=== PATIENT | female | born 1990 | race Caucasian/White ===

== ENCOUNTER 2017-09-06 13:21 | Emergency (ER) | payer BC ==
[2017-09-06] MEDS ORDERED: Ondansetron 4 MG/2 ML SDV IVPUSH ONE (14:11)
[2017-09-06] MEDS ORDERED: Sodium Chloride 0.9% 1,000 ML IV ONE (14:12)
--- NOTE | 2017-09-06 14:17 | EDM.PDOC ---
ED HPI GENERAL MEDICAL PROBLEM - General Chief Complaint: Gastrointestinal Problem Stated Complaint: DIZZINES,NAUSEA,VOMITING Time Seen by Provider: 09/06/17 14:00 Source of Information: Reports: Patient History Limitations: Reports: No Limitations - History of Present Illness INITIAL COMMENTS - FREE TEXT/NARRATIVE: HISTORY AND PHYSICAL: History of present illness: [Comes to the emergency room complaining of dizziness, nausea, vomiting and diarrhea. Her symptoms began suddenly at 4 AM this morning and have continued throughout this morning. He was at her son's pediatric appointment when she began to feel dizzy and lightheaded and that she could faint so she presented to the ER for evaluation. She admits to approximately 20 episodes of vomiting, and 20 episodes of loose stools since 4 AM. No blood in her emesis or stools. States that she felt well last night, other than experiencing some mild nausea after [employer] class. No fever or chills. No recent illness or infection. She has otherwise been well. No muscle or joint aches or pains. Denies abdominal cramping. LMP was approximately 2-1/2 weeks ago. She denies .] Review of systems: As per history of present illness and below otherwise all systems reviewed and negative. Past medical history: As per history of present illness and as reviewed below otherwise noncontributory. Surgical history: As per history of present illness and as reviewed below otherwise noncontributory. Social history: No reported history of drug or alcohol abuse. Family history: As per history of present illness and as reviewed below otherwise noncontributory. Physical exam: HEENT: Atraumatic, normocephalic. Oral mucous membranes are mildly dry but are pink. Lungs: Clear to auscultation, breath sounds equal bilaterally. Heart: S1S2, regular rate and rhythm. Abdomen: Bowel sounds are normoactive throughout. Abdomen is soft and nondistended. She is nontender with palpation. No masses guarding or rebound. No CVA tenderness. Pelvis: Stable nontender. Genitourinary: Deferred. Rectal: Deferred. Extremities: Atraumatic. Neurovascular unremarkable. Neuro: Awake, alert, oriented. Motor and sensory unremarkable throughout. Exam nonfocal. Diagnostics: [UA] Therapeutics: [1 Liter normal saline, Zofran 4 mg IV] Impression: [Nausea and vomiting] Plan: [HCG is negative. Urinalysis appears unremarkable. Rx written for Zofran 4mg (# 10) si po q 8 hours prn nausea 0 RF's. Push fluids, plenty of rest. Return to ER as needed as discussed.] Definitive disposition and diagnosis as appropriate pending reevaluation and review of above. 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 Abdominal Pain Score (Numeric/FACES): 5 - Related Data Allergies Allergy/AdvReac Type Severity Reaction Status Date / Time fentanyl AdvReac Nausea Verified 11/17/15 06:18 Home Meds: Home Meds Calcium Carbonate [Tums Extra Strength] 1 tab CHEW ASDIRECTED PRN 06/15/16 [ History] Acetaminophen [Tylenol Extra Strength] 09/06/17 [History] Past Medical History HEENT History: Reports: None Cardiovascular History: Reports: None Respiratory History: Reports: None Gastrointestinal History: Reports: GERD, Other (See Below) Other Gastrointestinal History: heartburn with Genitourinary History: Reports: None 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 OB/BYN History: c section Musculoskeletal History: Reports: None Neurological History: Reports: None Psychiatric History: Reports: None Endocrine/Metabolic History: Reports: Obesity/BMI 30+ Hematologic History: Reports: None Immunologic History: Reports: None Oncologic (Cancer) History: Reports: None Dermatologic History: Reports: None - Infectious Disease History Infectious Disease History: Reports: None - Past Surgical History Female Surgical History: Reports: Section Social & Family History - Family History Family Medical History: Noncontributory - Tobacco Use Smoking Status *Q: Never Smoker Second Hand Smoke Exposure: No - Alcohol Use Days Per Week of Alcohol Use: 0 - Recreational Drug Use Recreational Drug Use: No Drug Use in Last 12 Months: No ED ROS GENERAL - Review of Systems Review Of Systems: ROS reveals no pertinent complaints other than HPI. ED EXAM, GI/ABD - Physical Exam Exam: See Below Course - Vital Signs Last Recorded V/S: Last Vital Signs Temp 98.4 F 09/06/17 15:39 Pulse 82 09/06/17 15:39 Resp 20 09/06/17 15:39 BP 109/71 09/06/17 15:39 Pulse Ox 97 09/06/17 15:39 - Orders/Labs/Meds Orders: Active Orders 24 hr Category Date Time Status UA W/MICROSCOPIC [URIN] Stat Lab 09/06/17 15:13 Received Labs: Laboratory Tests 09/06/17 Range/Units 15:13 Urine HCG, Qual NEGATIVE (NEGATIVE) Meds: Medications Discontinued Medications Generic Name Dose Route Start Last Admin Trade Name Adolfo PRN Reason Stop Dose Admin Sodium Chloride 1,000 mls @ 999 mls/hr 09/06/17 14:12 09/06/17 14:32 Normal Saline IV 09/06/17 15:12 999 mls/hr STAT ONE Administration Ondansetron HCl 4 mg 09/06/17 14:11 09/06/17 14:31 Zofran IVPUSH 09/06/17 14:12 4 mg ONETIME ONE Administration Departure - Departure Time of Disposition: 15:40 Disposition: Home, Self-Care 01 Condition: Good Clinical Impression: Nausea and vomiting - Discharge Information Referrals: PCP,None [Primary Care Provider] - Forms: ED Department Discharge Additional Instructions: The following information is given to patients seen in the emergency department who are being discharged to home. This information is to outline your options for follow-up care. We provide all patients seen in our emergency department with a follow-up referral. The need for follow-up, as well as the timing and circumstances, are variable depending upon the specifics of your emergency department visit. If you don't have a primary care physician on staff, we will provide you with a referral. We always advise you to contact your personal physician following an emergency department visit to inform them of the circumstance of the visit and for follow-up with them and/or the need for any referrals to a consulting specialist. The emergency department will also refer you to a specialist when appropriate. This referral assures that you have the opportunity for follow-up care with a specialist. All of these measure are taken in an effort to provide you with optimal care, which includes your follow-up. Under all circumstances we always encourage you to contact your private physician who remains a resource for coordinating your care. When calling for follow-up care, please make the office aware that this follow-up is from your recent emergency room visit. If for any reason you are refused follow-up, please contact the [facility] emergency department at and asked to speak to the emergency department charge nurse. [facility] [address] [place], [place] [id number] Follow-up with your primary care provider or at the clinic listed above in the next 48-72 hours. Push fluids, get plenty of rest. Fill Zofran prescription and take one every 8 hours as needed for nausea. Return to ER as needed as discussed. - My Orders Last 24 Hours: My Active Orders 09/06/17 15:13 UA W/MICROSCOPIC [URIN] Stat - Assessment/Plan Last 24 Hours: My Active Orders 09/06/17 15:13 UA W/MICROSCOPIC [URIN] Stat
[2017-09-06 15:40] VITALS: BP 109/71
== END 2017-09-06 16:00 | disposition home or self-care (01) ==
LOC: MW.ED 13:21
DX: R11.2 Nausea with vomiting, unspecified (principal); Z88.8 Allergy status to other drugs, medicaments and biological substances
CPT/HCPCS: 81001; 81025; 96361; 96374; 99284; J2405; J7040; 99283

== ENCOUNTER 2020-02-10 19:58 | Emergency (ER) | payer BC ==
[2020-02-10] MEDS ORDERED: fentaNYL 50 MCG/ML SDV IVPUSH ONE (20:32)
[2020-02-10] MEDS ORDERED: Sodium Chloride 0.9% 2.5 ML Syringe FLUSH PRN ×2 (20:32→21:45)
[2020-02-10] MEDS ORDERED: Sodium Chloride 0.9% 10 ML Syringe FLUSH PRN ×2 (20:32→21:45)
--- NOTE | 2020-02-10 20:37 | EDM.PDOC ---
ED HPI GENERAL MEDICAL PROBLEM - General Chief Complaint: [employer] Problem Stated Complaint: POSSIBLE INFECTION Time Seen by Provider: 02/10/20 19:59 Source of Information: Reports: Patient, Old Records History Limitations: Reports: No Limitations - History of Present Illness INITIAL COMMENTS - FREE TEXT/NARRATIVE: 29-year-old female with a past medical history of multiple C-sections, post-op day #5 status post bilateral salpingectomy and uterine ablation for heavy menstrual bleeding (performed at [facility]), status post appendectomy. She presents emergency department today complaining of a 2-day history of severe infraumbilical pain, subjective fever, chills, diaphoresis, and 2 days of intermittent near syncope. She called her [employer]'s office who directed her to come to the emergency department. Took ibuprofen and Vicodin prior to arrival without much relief. She denies any objective fever, cough, shortness of breath, headache, neck pain, cough, dysuria, urinary frequency, hematuria, vomiting, diarrhea, vaginal bleeding or discharge, or rash. lower abdomen, below umbilicus Pain Score (Numeric/FACES): 6 - Related Data Allergies Allergy/AdvReac Type Severity Reaction Status Date / Time fentanyl AdvReac Nausea Verified 02/10/20 20:09 Home Meds: Home Meds Acetaminophen [Tylenol Extra Strength] 800 mg PO Q6H PRN 09/06/17 [History] Hydrocodone/Acetaminophen [Hydrocodone-Acetamin 5-325 mg] 1 - 2 tab PO Q6H PRN 02/10/20 [History] Past Medical History HEENT History: Reports: None Cardiovascular History: Reports: None Respiratory History: Reports: None Gastrointestinal History: Reports: GERD, Other (See Below) Other Gastrointestinal History: heartburn with Genitourinary History: Reports: None [employer] History: Reports: Other [employer] History: c section Musculoskeletal History: Reports: None Neurological History: Reports: None Psychiatric History: Reports: None Endocrine/Metabolic History: Reports: Obesity/BMI 30+ Hematologic History: Reports: None Immunologic History: Reports: None Oncologic (Cancer) History: Reports: None Dermatologic History: Reports: None - Infectious Disease History Infectious Disease History: Reports: None - Past Surgical History Head Surgeries/Procedures: Reports: None GI Surgical History: Reports: Appendectomy Female Surgical History: Reports: Section, D&C, Other (See Below) Other Female Surgeries/Procedures: Saplingoectomy, Ablation Social & Family History - Family History Family Medical History: Noncontributory - Tobacco Use Smoking Status *Q: Never Smoker - Recreational Drug Use Recreational Drug Use: No ED ROS GENERAL - Review of Systems Review Of Systems: See Below ED EXAM, GI/ABD - Physical Exam Exam: See Below Text/Narrative:: Vital signs reviewed. Nursing notes reviewed. Constitutional: Awake, alert, non-distressed. Head: Normocephalic, atraumatic. Eyes: EOMI, conjunctiva normal, no discharge, no scleral icterus. Ears, Nose, Throat: External ears and nose normal, moist oral mucosa. Cardiovascular: 2+ radial pulse, capillary refill less than 2 seconds. Pulmonary: normal work of breathing, no accessory muscle use. Abdomen/GI: Soft, moderate infraumbilical and right lower quadrant tenderness, nondistended, no guarding or rigidity, no masses. Surgical incision sites appear clean and healing normally. Ecchymosis noted to the abdominal wall. Musculoskeletal: No deformities. Integumentary: Appropriate color for ethnicity, warm, dry, no pallor or jaundice, no rash. Neurologic: Alert, answering questions appropriately, normal speech, no facial droop, moving all extremities well. Psychiatric: Appropriate mood and affect, normal thought process. Course - Vital Signs Text/Narrative:: Patient hemodynamically stable, afebrile, well-appearing, looks nontoxic. Differential diagnosis includes but is not limited to: Intra-abdominal hemorrhage, postoperative infection, bowel perforation, sepsis, diverticulitis, endometritis, TOA, gastritis, pancreatitis, GERD, bowel obstruction, intussusception, ileus, etc. Initially tachycardic but afebrile, nontoxic-appearing. Heart rate improved from 118 to 86 without any antipyretics or fluids, this was after receiving analgesic pain medications. CBC shows a leukocytosis of 16.21. Lactate is normal. Chemistry panel shows mild renal insufficiency. Troponin is negative. LFTs are normal. Lipase normal. Urinalysis shows positive nitrites and moderate leukocyte esterase with 3+ bacteria. Patient denies any flank pain, dysuria, or urinary frequency. A urine culture was added on. CT imaging of the abdomen/pelvis demonstrated an infraumbilical gas and fluid collection in the subcutaneous fat with infiltrate is shown of the subcutaneous fat and skin thickening, concern for postoperative hematoma with a possible superimposed infection. There is also small amount of gas in the uterine cavity but I have a low suspicion for endometritis given the patient has no lower pelvic pain or vaginal discharge or bleeding. Her pain is very much in the infraumbilical region in the area of her umbilical incision and not pelvic in location. 2220: I spoke with Dr. June Fonseca who is on-call for [facility]. She states that since the patient is nontoxic and the rest of her work-up is reassuring, the patient could discharge home with a prescription for oral cephalexin and they will plan to see her tomorrow morning in the [facility] clinic. She did not recommend IV antibiotics or hospitalization at this point given lack of fever, normal heart rate, and reassuring appearance. She states that she will facilitate a next day appointment in their clinic for reevaluation in the next 10 to 12 hours. I have a fairly low suspicion for bacterial sepsis at this point given normalization of vital signs after fentanyl. We did obtain 2 sets of blood cultures. Patient does not appear to have any signs of severe sepsis. I did consider broad-spectrum antibiotics but after discussing this with Dr. Fonseca we decided to abstain and will decide to prescribe oral cephalexin and facilitate close clinic follow-up tomorrow morning. Cephalexin would also treat a UTI based on her urinalysis. Blood and urine cultures were obtained. Plan: Patient is stable to discharge home with outpatient [employer] follow-up. She has oral pain medications at home and I instructed her to continue these as directed and as needed. Oral Keflex was prescribed to the dispensing machine. Strict emergency department return precautions were provided, patient indicated understanding. All questions were answered prior to departure. Discharged in good condition. Last Recorded V/S: Last Vital Signs Temp 36.2 C 02/10/20 20:05 Pulse 86 02/10/20 21:48 Resp 16 02/10/20 21:48 BP 120/58 L 02/10/20 21:48 Pulse Ox 96 02/10/20 21:48 - Orders/Labs/Meds Orders: Active Orders 24 hr Category Date Time Status Cardiac Monitoring [RC] . DIRECTED Care 02/10/20 20:32 Active Pulse Oximetry [RC] ASDIRECTED Care 02/10/20 20:32 Active NPO Now [Nothing per Oral Now Diet] [DIET] Diet 02/10/20 Dinner Active CULTURE BLOOD [BC] Stat Lab 02/10/20 21:57 Received CULTURE BLOOD [BC] Stat Lab 02/10/20 22:26 Received CULTURE URINE [RM] Stat Lab 02/10/20 20:35 Received Sodium Chloride 0.9% [Saline Flush] Med 02/10/20 20:32 Active 10 ml FLUSH ASDIRECTED PRN Sodium Chloride 0.9% [Saline Flush] Med 02/10/20 21:45 Active 10 ml FLUSH ASDIRECTED PRN Sodium Chloride 0.9% [Saline Flush] Med 02/10/20 20:32 Active 2.5 ml FLUSH ASDIRECTED PRN Sodium Chloride 0.9% [Saline Flush] Med 02/10/20 21:45 Active 2.5 ml FLUSH ASDIRECTED PRN Blood Culture x2 Reflex Set [OM.PC] Stat Oth 02/10/20 21:45 Ordered Saline Lock Insert [OM.PC] Stat Oth 02/10/20 20:32 Ordered Saline Lock Insert [OM.PC] Stat Oth 02/10/20 21:45 Ordered Medication Orders Sodium Chloride (Saline Flush) 10 ml FLUSH ASDIRECTED PRN PRN Reason: Keep Vein Open Sodium Chloride (Saline Flush) 2.5 ml FLUSH ASDIRECTED PRN PRN Reason: Keep Vein Open Sodium Chloride (Saline Flush) 10 ml FLUSH ASDIRECTED PRN PRN Reason: Keep Vein Open Sodium Chloride (Saline Flush) 2.5 ml FLUSH ASDIRECTED PRN PRN Reason: Keep Vein Open Labs: Laboratory Tests 02/10/20 02/10/20 02/10/20 Range/Units 20:25 20:25 20:35 WBC 16.21 H (4.0-11.0) K/uL RBC 4.64 (4.30-5.90) M/uL Hgb 12.5 (12.0-16.0) g/dL Hct 38.4 (36.0-46.0) % MCV 82.8 (80.0-98.0) fL MCH 26.9 L (27.0-32.0) pg MCHC 32.6 (31.0-37.0) g/dL RDW Std Deviation 45.2 (28.0-62.0) fl RDW Coeff of Kalie 15 (11.0-15.0) % Plt Count 290 (150-400) K/uL MPV 11.30 (7.40-12.00) fL Neut % (Auto) 80.0 (48.0-80.0) % Lymph % (Auto) 10.1 L (16.0-40.0) % [place] % (Auto) 8.8 (0.0-15.0) % Eos % (Auto) 0.9 (0.0-7.0) % Baso % (Auto) 0.2 (0.0-1.5) % Neut # (Auto) 13.0 H (1.4-5.7) K/uL Lymph # (Auto) 1.6 (0.6-2.4) K/uL [place] # (Auto) 1.4 H (0.0-0.8) K/uL Eos # (Auto) 0.1 (0.0-0.7) K/uL Baso # (Auto) 0.0 (0.0-0.1) K/uL Nucleated RBC % 0.0 /100WBC Nucleated RBCs # 0 K/uL Lactate (0.20-2.00) mmol/L Sodium 134 L (136-145) mmol/L Potassium 3.6 (3.5-5.1) mmol/L Chloride 101 (98-107) mmol/L Carbon Dioxide 25.0 (21.0-32.0) mmol/L BUN 10 (7.0-18.0) mg/dL Creatinine 1.2 H (0.6-1.0) mg/dL Est Cr Clr Drug Dosing 71.04 mL/min Estimated GFR (MDRD) 53.9 ml/min Glucose 109 H (74-106) mg/dL Calcium 8.5 (8.5-10.1) mg/dL Total Bilirubin 0.6 (0.2-1.0) mg/dL AST 18 (15-37) IU/L ALT 17 (14-63) IU/L Alkaline Phosphatase 78 (46-116) U/L Troponin I < 0.050 (0.000-0.056) ng/mL Total Protein 8.5 H (6.4-8.2) g/dL Albumin 3.6 (3.4-5.0) g/dL Globulin 4.9 H (2.6-4.0) g/dL Albumin/Globulin Ratio 0.7 L (0.9-1.6) Lipase 58 L (73-393) U/L Urine Color YELLOW Urine Appearance CLOUDY Urine pH 6.5 (5.0-8.0) Ur Specific [place] 1.020 (1.001-1.035) Urine Protein 30 H (NEGATIVE) mg/dL Urine Glucose (UA) NEGATIVE (NEGATIVE) mg/dL Urine Ketones NEGATIVE (NEGATIVE) mg/dL Urine Occult Blood SMALL H (NEGATIVE) Urine Nitrite POSITIVE H (NEGATIVE) Urine Bilirubin NEGATIVE (NEGATIVE) Urine Urobilinogen 0.2 (<2.0) EU/dL Ur Leukocyte Esterase MODERATE H (NEGATIVE) Urine RBC 1-2 (0-2/HPF) Urine WBC 25-30 (0-5/HPF) Ur Epithelial Cells OCCASIONAL (NONE-FEW) Urine Bacteria 3+ H (NEGATIVE) Urine HCG, Qual (NEGATIVE) 02/10/20 02/10/20 Range/Units 20:35 22:05 WBC (4.0-11.0) K/uL RBC (4.30-5.90) M/uL Hgb (12.0-16.0) g/dL Hct (36.0-46.0) % MCV (80.0-98.0) fL MCH (27.0-32.0) pg MCHC (31.0-37.0) g/dL RDW Std Deviation (28.0-62.0) fl RDW Coeff of Kalie (11.0-15.0) % Plt Count (150-400) K/uL MPV (7.40-12.00) fL Neut % (Auto) (48.0-80.0) % Lymph % (Auto) (16.0-40.0) % [place] % (Auto) (0.0-15.0) % Eos % (Auto) (0.0-7.0) % Baso % (Auto) (0.0-1.5) % Neut # (Auto) (1.4-5.7) K/uL Lymph # (Auto) (0.6-2.4) K/uL [place] # (Auto) (0.0-0.8) K/uL Eos # (Auto) (0.0-0.7) K/uL Baso # (Auto) (0.0-0.1) K/uL Nucleated RBC % /100WBC Nucleated RBCs # K/uL Lactate 0.8 (0.20-2.00) mmol/L Sodium (136-145) mmol/L Potassium (3.5-5.1) mmol/L Chloride (98-107) mmol/L Carbon Dioxide (21.0-32.0) mmol/L BUN (7.0-18.0) mg/dL Creatinine (0.6-1.0) mg/dL Est Cr Clr Drug Dosing mL/min Estimated GFR (MDRD) ml/min Glucose (74-106) mg/dL Calcium (8.5-10.1) mg/dL Total Bilirubin (0.2-1.0) mg/dL AST (15-37) IU/L ALT (14-63) IU/L Alkaline Phosphatase (46-116) U/L Troponin I (0.000-0.056) ng/mL Total Protein (6.4-8.2) g/dL Albumin (3.4-5.0) g/dL Globulin (2.6-4.0) g/dL Albumin/Globulin Ratio (0.9-1.6) Lipase (73-393) U/L Urine Color Urine Appearance Urine pH (5.0-8.0) Ur Specific [place] (1.001-1.035) Urine Protein (NEGATIVE) mg/dL Urine Glucose (UA) (NEGATIVE) mg/dL Urine Ketones (NEGATIVE) mg/dL Urine Occult Blood (NEGATIVE) Urine Nitrite (NEGATIVE) Urine Bilirubin (NEGATIVE) Urine Urobilinogen (<2.0) EU/dL Ur Leukocyte Esterase (NEGATIVE) Urine RBC (0-2/HPF) Urine WBC (0-5/HPF) Ur Epithelial Cells (NONE-FEW) Urine Bacteria (NEGATIVE) Urine HCG, Qual NEGATIVE (NEGATIVE) Meds: Medications Generic Name Dose Route Start Last Admin Trade Name Freq PRN Reason Stop Dose Admin Sodium Chloride 10 ml 02/10/20 20:32 Saline Flush FLUSH ASDIRECTED PRN Keep Vein Open Sodium Chloride 2.5 ml 02/10/20 20:32 Saline Flush FLUSH ASDIRECTED PRN Keep Vein Open Sodium Chloride 10 ml 02/10/20 21:45 Saline Flush FLUSH ASDIRECTED PRN Keep Vein Open Sodium Chloride 2.5 ml 02/10/20 21:45 Saline Flush FLUSH ASDIRECTED PRN Keep Vein Open Discontinued Medications Generic Name Dose Route Start Last Admin Trade Name Adolfo PRN Reason Stop Dose Admin Fentanyl 50 mcg 02/10/20 20:32 02/10/20 20:40 Fentanyl IVPUSH 02/10/20 20:33 50 mcg ONETIME ONE Administration Piperacillin Sod/Tazobactam 100 mls @ 200 mls/hr 02/10/20 22:11 Sod 4.5 gm/ Sodium Chloride IV 02/10/20 22:40 STAT ONE Iopamidol 100 ml 02/10/20 21:39 02/10/20 21:40 Isovue Multipack-370 (76%) IVPUSH 02/10/20 21:40 100 ml ONETIME STA Administration Vancomycin HCl 1 dose 02/10/20 22:12 Pharmacy To Dose - Vancomycin .XX 02/10/20 22:13 ONETIME ONE Departure - Departure Time of Disposition: 22:34 Disposition: Home, Self-Care 01 Condition: Good Clinical Impression: Abdominal wall cellulitis - Discharge Information *PRESCRIPTION DRUG MONITORING PROGRAM REVIEWED*: Not Applicable *COPY OF PRESCRIPTION DRUG MONITORING REPORT IN PATIENT AARON: Not Applicable Instructions: Cellulitis, Adult Referrals: [facility] [Provider Group] - 1 Day (Call in the morning as soon as the clinic opens to establish a same-day appointment for close reevaluation.) Forms: ED Department Discharge Additional Instructions: Thank you for choosing the [facility] emergency department in [place] for your medical needs today. It was a pleasure caring for you. You were seen in the emergency department for abdominal pain. Your CT scan was concerning for cellulitis, and infection of the skin of the abdominal wall around your umbilical incision. Your vital signs look reassuring as does your laboratory work-up. Your urinalysis was concerning for urinary tract infection. I did speak with Dr. Fonseca who is on-call for [facility] [employer] and they would like for you to be seen tomorrow morning in their clinic. Please call as soon as the clinic opens to set up a same-day appointment. In the meantime you can take your prescribed medications as directed by your [employer] doctor. I will prescribe a course of cephalexin, an oral antibiotic for the abdominal wall infection. Be sure to finish the entire bottle. Warning signs include worsening pain, redness, persistent fever, chills, or repeated vomiting. Please return the emergency department immediately if your symptoms worsen or if you feel worse. The following information is given to patients seen in the emergency department who are being discharged. This information is to outline your options for follow-up care. We provide all patients seen in our emergency department with a follow-up referral. The need for follow-up, as well as the timing and circumstances, are variable depending upon the specifics of your emergency department visit. If you don't have a primary care physician on staff, we will provide you with a referral. We always advise you to contact your personal physician following an emergency department visit to inform them of the circumstance of the visit and for follow-up with them and/or the need for any referrals to a consulting specialist. The emergency department will also refer you to a specialist when appropriate. This referral assures that you have the opportunity for follow-up care with a specialist. All of these measure are taken in an effort to provide you with optimal care, which includes your follow-up. Under all circumstances we always encourage you to contact your private physician who remains a resource for coordinating your care. When calling for follow-up care, please make the office aware that this follow-up is from your recent emergency room visit. If for any reason you are refused follow-up, please contact the [facility] Emergency Department at and asked to speak to the emergency department charge nurse. If you do not have a primary care physician that is caring for you, you can contact these clinics below to set up an appointment to establish care: [facility] - Primary Care [address] [place] [id number] [address] Sepsis Event Note (ED) - Evaluation Sepsis Screening Result: Possible Sepsis Risk - Focused Exam Vital Signs: Vital Signs Temp Pulse Resp BP Pulse Ox 02/10/20 21:48 86 16 120/58 L 96 02/10/20 21:15 93 112/69 97 02/10/20 20:05 36.2 C 118 H 16 123/77 96 - My Orders Last 24 Hours: My Active Orders 02/10/20 Dinner NPO Now [Nothing per Oral Now Diet] [DIET] 02/10/20 20:32 Cardiac Monitoring [RC] . DIRECTED Pulse Oximetry [RC] ASDIRECTED Sodium Chloride 0.9% [Saline Flush] 10 ml FLUSH ASDIRECTED PRN Sodium Chloride 0.9% [Saline Flush] 2.5 ml FLUSH ASDIRECTED PRN Saline Lock Insert [OM.PC] Stat 02/10/20 20:35 CULTURE URINE [RM] Stat 02/10/20 21:45 Sodium Chloride 0.9% [Saline Flush] 10 ml FLUSH ASDIRECTED PRN Sodium Chloride 0.9% [Saline Flush] 2.5 ml FLUSH ASDIRECTED PRN Blood Culture x2 Reflex Set [OM.PC] Stat Saline Lock Insert [OM.PC] Stat 02/10/20 21:57 CULTURE BLOOD [BC] Stat 02/10/20 22:26 CULTURE BLOOD [BC] Stat - Assessment/Plan Last 24 Hours: My Active Orders 02/10/20 Dinner NPO Now [Nothing per Oral Now Diet] [DIET] 02/10/20 20:32 Cardiac Monitoring [RC] . DIRECTED Pulse Oximetry [RC] ASDIRECTED Sodium Chloride 0.9% [Saline Flush] 10 ml FLUSH ASDIRECTED PRN Sodium Chloride 0.9% [Saline Flush] 2.5 ml FLUSH ASDIRECTED PRN Saline Lock Insert [OM.PC] Stat 02/10/20 20:35 CULTURE URINE [RM] Stat 02/10/20 21:45 Sodium Chloride 0.9% [Saline Flush] 10 ml FLUSH ASDIRECTED PRN Sodium Chloride 0.9% [Saline Flush] 2.5 ml FLUSH ASDIRECTED PRN Blood Culture x2 Reflex Set [OM.PC] Stat Saline Lock Insert [OM.PC] Stat 02/10/20 21:57 CULTURE BLOOD [BC] Stat 02/10/20 22:26 CULTURE BLOOD [BC] Stat
[2020-02-10 21:04] LABS: BLOOD UREA NITROGEN,BUN 10 mg/dL (7.0-18.0); CHLORIDE,CL 101 mmol/L (98-107); GLUCOSE RANDOM 109 mg/dL (74-106); LIPASE 58 U/L (73-393); POTASSIUM,K 3.6 mmol/L (3.5-5.1); SODIUM,NA 134 mmol/L (136-145)
[2020-02-10] MEDS ORDERED: Iopamidol 755 MG/ML 500 ML Multipack Bottle IVPUSH STA (21:39)
[2020-02-10] MEDS ORDERED: Piperacillin/Tazobactam 4.5 GM in Sodium Chloride 0.9% 100 ML IV ONE (22:11)
--- NOTE | 2020-02-10 22:14 | CT ---
INDICATION: Severe periumbilical abdominal pain, recent salpingectomy TECHNIQUE: CT Abdomen and pelvis with i.v. contrast. Coronal and sagittal reformats were obtained. CONTRAST: 100 mL Isovue 370 COMPARISON: None FINDINGS: Lower chest: Unremarkable. Liver: Unremarkable. Spleen: Unremarkable. Pancreas: Unremarkable. Gallbladder: Unremarkable. Kidney: There is a nonobstructing 2 mm stone present in the upper pole of the right kidney. Adrenal: Unremarkable. Bowel: Unremarkable. Patient status post appendectomy. Vascular: Unremarkable. Lymph: Unremarkable. Peritoneum: Unremarkable. A small amount of pneumoperitoneum, extraperitoneal gas within the space of Retzius and gas along the right anterior abdominal wall are present and almost certainly related to recent surgery. Trace amount of pelvic ascites is present. Pelvis: There is a cyst or follicle within the left ovary measuring 2 cm. A small amount of gas is present within the uterine cavity with surrounding hypodense fluid. Soft tissue: There is an infraumbilical gas and fluid collection in the subcutaneous fat measuring 5.7 x 5.3 cm. Infiltration of the surrounding subcutaneous fat and skin thickening seen. Bone: Unremarkable for age. IMPRESSIONS: 1. There is an infraumbilical gas and fluid collection in the subcutaneous fat measuring 5.7 x 5.3 cm. Infiltration of the surrounding subcutaneous fat and skin thickening seen. This is most likely due to postoperative hematoma but clinical correlation is recommended to exclude a superimposed infection. 2. A small amount of gas is present within the uterine cavity with surrounding hypodense fluid. This may be related to recent surgery and correlation with physical exam is recommended to exclude the less likely possibility of endometritis. Dictated by Howard Kim MD @ 02/10/2020 10:08:11 PM Please note that all CT scans at this facility use dose modulation, iterative reconstruction, and/or weight-based dosing when appropriate to reduce radiation dose to as low as reasonably achievable. Dictated by: Howard Kim MD @ 02/10/2020 22:11:36 (Electronically Signed)
[2020-02-10 22:39] VITALS: BP 117/65; PULSE 87
== END 2020-02-10 22:45 | disposition home or self-care (01) ==
LOC: MW.ED 19:58
DX: L03.311 Cellulitis of abdominal wall (principal); E66.9 Obesity, unspecified; Z68.37 Body mass index [BMI] 37.0-37.9, adult; Z88.4 Allergy status to anesthetic agent
CPT/HCPCS: 36415; 74177; 80053; 81001; 81025; 83605; 83690; 84484; 85025; 87040; 87086; 87088; 87186; 96374; 99284; J3010; Q9967

== ENCOUNTER 2020-02-12 16:29 | Day surgery (SDC) | payer BC ==
[2020-02-12] MEDS ORDERED: Lidocaine 2% 5 ML SDV ONE (16:43)
[2020-02-12] MEDS ORDERED: Propofol 200 MG/20 ML SDV ONE (16:43)
[2020-02-12] MEDS ORDERED: Midazolam 1 MG/ML 2 ML SDV ONE (16:43)
[2020-02-12] MEDS ORDERED: fentaNYL 100 MCG/2 ML SDV ONE (16:43)
[2020-02-12] MEDS ORDERED: Levofloxacin/Dextrose 5%-Water 500 MG in Premix Bag 1 BAG IV ONE (16:52)
[2020-02-12] MEDS ORDERED: Bupivacaine 0.25%/EPINEPHrine 1:200,000 10 ML SDV ONE (16:53)
[2020-02-12] MEDS ORDERED: Lactated Ringers 1,000 ML IV ONE (17:24)
[2020-02-12 17:41] LABS: BLOOD UREA NITROGEN,BUN 7 mg/dL (7.0-18.0); CARBON DIOXIDE,CO2 22.5 mmol/L (21.0-32.0); CHLORIDE,CL 100 mmol/L (98-107); GLUCOSE RANDOM 111 mg/dL (74-106); POTASSIUM,K 3.5 mmol/L (3.5-5.1); SODIUM,NA 133 mmol/L (136-145)
[2020-02-12] MEDS ORDERED: fentaNYL 50 MCG/ML SDV IVPUSH ONE (17:52)
--- NOTE | 2020-02-12 18:04 | PCM.PREANE ---
Preanesthetic Assessment - Anesthesia/Transfusion/Family Hx Anesthesia History: Prior Anesthesia Without Reaction Other Type of Anesthesia Reaction Comment: Difficuly in placement of an Epidural for L&D Family History of Anesthesia Reaction: No Transfusion History: No Prior Transfusion(s) - Review of Systems General: No Symptoms Pulmonary: No Symptoms Cardiovascular: No Symptoms Gastrointestinal: No Symptoms Neurological: No Symptoms Other: Reports: None - Physical Assessment NPO Status Date: 02/12/20 NPO Status Time: 15:00 (gatorade) Height: 5 ft 8 in Weight: 112.808 kg ASA Class: 2 Mental Status: Alert & Oriented x3 Airway Class: Mallampati = 2 Dentition: Reports: Normal Dentition Thyro-Mental Finger Breadths: 3 ROM/Head Extension: Full Lungs: Clear to Auscultation, Normal Respiratory Effort Cardiovascular: Regular Rate, Regular Rhythm - Lab Values: Laboratory Last Values WBC 17.02 K/uL (4.0-11.0) H 02/12/20 17:09 RBC 4.49 M/uL (4.30-5.90) 02/12/20 17:09 Hgb 12.1 g/dL (12.0-16.0) 02/12/20 17:09 Hct 37.2 % (36.0-46.0) 02/12/20 17:09 MCV 82.9 fL (80.0-98.0) 02/12/20 17:09 MCH 26.9 pg (27.0-32.0) L 02/12/20 17:09 MCHC 32.5 g/dL (31.0-37.0) 02/12/20 17:09 RDW Std Deviation 45.0 fl (28.0-62.0) 02/12/20 17:09 RDW Coeff of Kalie 15 % (11.0-15.0) 02/12/20 17:09 Plt Count 286 K/uL (150-400) 02/12/20 17:09 MPV 11.10 fL (7.40-12.00) 02/12/20 17:09 Neut % (Auto) 84.4 % (48.0-80.0) H 02/12/20 17:09 Lymph % (Auto) 5.1 % (16.0-40.0) L 02/12/20 17:09 Mineral % (Auto) 10.0 % (0.0-15.0) 02/12/20 17:09 Eos % (Auto) 0.4 % (0.0-7.0) 02/12/20 17:09 Baso % (Auto) 0.1 % (0.0-1.5) 02/12/20 17:09 Neut # (Auto) 14.4 K/uL (1.4-5.7) H 02/12/20 17:09 Lymph # (Auto) 0.9 K/uL (0.6-2.4) 02/12/20 17:09 Mineral # (Auto) 1.7 K/uL (0.0-0.8) H 02/12/20 17:09 Eos # (Auto) 0.1 K/uL (0.0-0.7) 02/12/20 17:09 Baso # (Auto) 0.0 K/uL (0.0-0.1) 02/12/20 17:09 Nucleated RBC % 0.0 /100WBC 02/12/20 17:09 Nucleated RBCs # 0 K/uL 02/12/20 17:09 Sodium 133 mmol/L (136-145) L 02/12/20 17:09 Potassium 3.5 mmol/L (3.5-5.1) 02/12/20 17:09 Chloride 100 mmol/L (98-107) 02/12/20 17:09 Carbon Dioxide 22.5 mmol/L (21.0-32.0) 02/12/20 17:09 BUN 7 mg/dL (7.0-18.0) 02/12/20 17:09 Creatinine 1.2 mg/dL (0.6-1.0) H 02/12/20 17:09 Est Cr Clr Drug Dosing TNP 02/12/20 17:09 Estimated GFR (MDRD) 53.9 ml/min 02/12/20 17:09 Glucose 111 mg/dL (74-106) H 02/12/20 17:09 Calcium 8.7 mg/dL (8.5-10.1) 02/12/20 17:09 - Allergies Allergies/Adverse Reactions: Allergies Allergy/AdvReac Type Severity Reaction Status Date / Time fentanyl AdvReac Nausea Verified 02/10/20 20:09 - Acknowledgements Anesthesia Type Planned: General Anesthesia Pt an Appropriate Candidate for the Planned Anesthesia: Yes Alternatives and Risks of Anesthesia Discussed w Pt/Guardian: Yes Pt/Guardian Understands and Agrees with Anesthesia Plan: Yes PreAnesthesia Questionnaire HEENT History: Reports: None Cardiovascular History: Reports: None Respiratory History: Reports: None Gastrointestinal History: Reports: GERD, Other (See Below) Other Gastrointestinal History: heartburn with Genitourinary History: Reports: None 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: Other OB/BYN History: c section Musculoskeletal History: Reports: None Neurological History: Reports: None Psychiatric History: Reports: None Endocrine/Metabolic History: Reports: Obesity/BMI 30+ Hematologic History: Reports: None Immunologic History: Reports: None Oncologic (Cancer) History: Reports: None Dermatologic History: Reports: None - Infectious Disease History Infectious Disease History: Reports: None - Past Surgical History Head Surgeries/Procedures: Reports: None GI Surgical History: Reports: Appendectomy Female Surgical History: Reports: Section, D&C, Other (See Below) Other Female Surgeries/Procedures: Saplingoectomy, Ablation - SUBSTANCE USE Smoking Status *Q: Never Smoker Tobacco Use Within Last Twelve Months: No Days Per Week of Alcohol Use: 0 Recreational Drug Use History: No - HOME MEDS Home Medications: Home Meds Acetaminophen [Tylenol Extra Strength] 800 mg PO Q6H PRN 09/06/17 [History] Hydrocodone/Acetaminophen [Hydrocodone-Acetamin 5-325 mg] 1 - 2 tab PO Q6H PRN 02/10/20 [History] - CURRENT (IN HOUSE) MEDS Current Meds: Current Medications Fentanyl (Fentanyl) 100 mcg IVPUSH ONETIME ONE Stop: 02/12/20 17:53 Lactated Ringer's (Ringers, Lactated) 1,000 mls @ 999 mls/hr IV ONETIME ONE Stop: 02/12/20 18:24 Discontinued Medications Bupivacaine HCl/Epinephrine Bitart (Marcaine 0.25%/Epinephrine 1:200,000) Confirm Administered Dose 10 ml .ROUTE .STK-MED ONE Stop: 02/12/20 16:54 Fentanyl (Sublimaze) Confirm Administered Dose 100 mcg .ROUTE .STK-MED ONE Stop: 02/12/20 16:44 Levofloxacin/Dextrose 500 mg/ (Premix) 100 mls @ 100 mls/hr IV ONETIME ONE Stop: 02/12/20 17:51 Lidocaine (Xylocaine-Mpf 2%) Confirm Administered Dose 5 ml .ROUTE .STK-MED ONE Stop: 02/12/20 16:44 Midazolam HCl (Versed 1 Mg/Ml) Confirm Administered Dose 2 mg .ROUTE .STK-MED ONE Stop: 02/12/20 16:44 Propofol (Diprivan 20 Ml) Confirm Administered Dose 200 mg .ROUTE .STK-MED ONE Stop: 02/12/20 16:44
[2020-02-12] MEDS ORDERED: ceFAZolin 1 GM Vial ONE ×2 (18:34→18:52)
[2020-02-12] MEDS ORDERED: HYDROmorphone 2 MG/ML Syringe ONE (18:52)
[2020-02-12] MEDS ORDERED: Ondansetron 4 MG/2 ML SDV ONE (18:53)
[2020-02-12] MEDS ORDERED: Dexamethasone 4 MG/ML 5 ML MDV ONE (18:53)
[2020-02-12] MEDS ORDERED: Ketorolac 30 MG/ML SDV ONE (19:02)
[2020-02-12] MEDS ORDERED: EPINEPHrine 1:10,000 1 MG/10 ML Syringe IVPUSH PRN (19:26)
[2020-02-12] MEDS ORDERED: Albuterol 0.083% 2.5 MG/3 ML Neb Soln NEB PRN (19:26)
[2020-02-12] MEDS ORDERED: Atropine 0.1 MG/ML 10 ML Syringe IVPUSH PRN ×2 (19:26)
[2020-02-12] MEDS ORDERED: 50% Dextrose in Water 50 ML Syringe IVPUSH PRN (19:26)
[2020-02-12] MEDS ORDERED: Naloxone 0.4 MG/ML Syringe IVPUSH PRN (19:26)
[2020-02-12] MEDS ORDERED: fentaNYL 100 MCG/2 ML SDV IVPUSH PRN (19:26)
--- NOTE | 2020-02-12 19:27 | PCM.OPNOTE ---
- General Post-Op/Procedure Note Date of Surgery/Procedure: 02/12/20 Operative Procedure(s): incision and drainage of umbilical abscess, wound exploration Findings: incision intact with surrounding erythema, fluctuance beneath the umbilicus. Pet hair noted within the umbilicus. Large amount of nova purulent, foul smelling drainage when umbilical incision was opened. Fascia intact. Pre Op Diagnosis: wound hematoma Post-Op Diagnosis: Wound abscess Anesthesia Technique: General LMA Primary Surgeon: Kerri Son Secondary Surgeon: Gregoria Hendricks Anesthesia Provider: Rashmi Mendoza Pathology: aerobic and anaerobic wound cultures. EBL in mLs: 5 Drain/Tube Comments:: wounds packed wet to dry. Complications: None Known Condition: Good
[2020-02-12] MEDS ORDERED: Acetaminophen/oxyCODONE 325-5 MG Tab PO PRN ×2 (19:28)
[2020-02-12] MEDS ORDERED: Ketorolac 30 MG/ML SDV IVPUSH ONE (19:28)
[2020-02-12] MEDS ORDERED: Promethazine 25 MG/ML SDV IM PRN (19:28)
[2020-02-12] MEDS ORDERED: Morphine 4 MG/ML Syringe IVPUSH PRN (19:28)
[2020-02-12] MEDS ORDERED: Ondansetron 4 MG/2 ML SDV IVPUSH PRN (19:28)
--- NOTE | 2020-02-12 19:40 | PCM.POSTAN ---
POST ANESTHESIA ASSESSMENT - MENTAL STATUS Mental Status: Alert, Oriented - VITAL SIGNS Vital Signs: Last Vital Signs Temp 36.9 C 02/12/20 18:02 Pulse 102 H 02/12/20 18:02 Resp 16 02/12/20 18:02 BP 114/55 L 02/12/20 18:02 Pulse Ox 96 02/12/20 18:02 - RESPIRATORY Respiratory Status: Respiratory Rate WNL, Airway Patent, O2 Saturation Stable - CARDIOVASCULAR CV Status: Pulse Rate WNL, Blood Pressure Stable - GASTROINTESTINAL GI Status: No Symptoms - PAIN Pain Score: 0 - POST OP HYDRATION Hydration Status: Adequate & Stable
--- NOTE | 2020-02-12 21:10 | OR ---
SURGEON: Kerri Son M.D. DATE OF PROCEDURE: 02/12/2020 PREOPERATIVE DIAGNOSIS: Suspected wound hematoma. POSTOPERATIVE DIAGNOSIS: Wound abscess. PROCEDURE: Incision and drainage of wound abscess. PRIMARY SURGEON: Kerri Son MD NURSE OUTREACH CASE MANAGER: JUDY Villasenor ANESTHESIA: General LMA. ESTIMATED BLOOD LOSS: Minimal. FINDINGS: There was a large amount of pet hair on her abdomen and even within the wound following prep. This was cleaned out. The wound was opened, immediately there was sandhu foul-smelling discharge from the wound. The subumbilical incision was inspected and the fascia was inspected and was intact. Pathology is culture, anaerobic and aerobic. COMPLICATIONS: None known. DISPOSITION: Stable to Recovery. BRIEF HISTORY: This is a 29-year-old female. She is postop day 7 from a laparoscopic bilateral salpingectomy, which was performed with an open incision due to prior surgeries and obesity. Postoperatively, she did very well for the first 4 days. On day 5, she noted a fairly sudden onset of increasing pain and tenderness around the umbilical incision. The 2 days prior to this, she had been working out, and she was working out on a stair stepper as well as other exercises, and she presented to the emergency room on postoperative day 5 with pain and was found to have fluid within the subcutaneous tissue inferior to the umbilicus. The fascia appeared to be intact. There were no intraperitoneal abnormalities and this was a suspected hematoma. She was placed on Keflex in the emergency room to prevent infection of the suspected hematoma, and she was seen in the office the following day. She had only received 2 doses of the Keflex; and therefore, I asked her to continue on the antibiotic, and I would reassess the following day, which was today, and her pain was no better. There was a large area of erythema surrounding the umbilicus; and therefore, I did recommend proceeding with open incision and drainage of what was suspected to be a wound hematoma. She agreed and consented to the procedure. DESCRIPTION OF PROCEDURE: With the patient in the supine position, under adequate general LMA analgesia, the abdomen was prepped with Betadine and draped in usual fashion for abdominal surgery. The umbilicus was prepped, however, after prepping and draping, there was still pet hair noted within the incision itself as well as on other areas of the bed and the incision was opened by snipping the suture and immediately there was copious sandhu foul-smelling discharge. Cultures were obtained. The wound was evacuated and then copiously irrigated with a total of 3 L of irrigation starting with Ancef instilled in normal saline followed by 1:1 dilution of hydrogen peroxide and normal saline followed by another liter of Ancef and normal saline. Using the [employer] retractors, I was able to see the fascial stitch, which was intact. I was also able to palpate the fascia, which was intact. Therefore, the wound was packed with wet packing gauze with Ancef instilled saline and was appropriately dressed. Final sponge, needle, and instrument counts were reported as correct. There were no known complications. The patient was transferred to Recovery in good condition. She did receive 500 mg of Levaquin prior to the surgery and will be continued on Levaquin and will be continued inpatient both for pain control and for IV antibiotics. KIARRA / JAY JAY /[id number]
[2020-02-13] MEDS: Ketorolac 30 MG/ML SDV IVPUSH SCH ×3 (02:30→14:51)
--- NOTE | 2020-02-13 07:27 | PCM48HPAN ---
Post Anesthesia Note - EVALUATION WITHIN 48HRS OF ANESTHETIC Vital Signs in Normal Range: Yes Patient Participated in Evaluation: Yes Respiratory Function Stable: Yes Airway Patent: Yes Cardiovascular Function Stable: Yes Hydration Status Stable: Yes Pain Control Satisfactory: Yes Nausea and Vomiting Control Satisfactory: Yes Mental Status Recovered: Yes Vital Signs: Last Vital Signs Temp 36.8 C 02/13/20 04:03 Pulse 70 02/13/20 04:03 Resp 16 02/13/20 04:03 BP 108/58 L 02/13/20 04:03 Pulse Ox 95 02/13/20 04:03 - COMMENTS/OBSERVATIONS Free Text/Narrative:: Pt resting in bed. Reports having walked last night without difficulty. Pain at rest 1-2/10, 4-5/10 with large movement. Reports satisfactory pain control. Taking PO well and denies nausea.
--- NOTE | 2020-02-13 07:37 | PCM.SURGPN ---
<Gregoria Hendricks - Last Filed: 02/13/20 07:32> - General Info Date of Service: 02/13/20 Date of Surgery/Procedure: 02/12/20 POD#: 1 Post-Op Diagnosis: wound abscess Admission Diagnosis/Problem: Wound hematoma Functional Status: Reports: Pain Controlled (Patient states "I feel 1,000 times better"), Tolerating Diet, Ambulating, Urinating Pain Score: 3 - Review of Systems General: Reports: No Symptoms HEENT: Reports: No Symptoms Pulmonary: Reports: No Symptoms Cardiovascular: Reports: No Symptoms Gastrointestinal: Reports: No Symptoms Genitourinary: Reports: No Symptoms Musculoskeletal: Reports: No Symptoms Skin: Reports: No Symptoms Neurological: Reports: No Symptoms Psychiatric: Reports: No Symptoms - Patient Data Vitals - Most Recent: Last Vital Signs Temp 98.2 F 02/13/20 04:03 Pulse 70 02/13/20 04:03 Resp 16 02/13/20 04:03 BP 108/58 L 02/13/20 04:03 Pulse Ox 95 02/13/20 04:03 Weight - Most Recent: 112.808 kg I&O - Last 24 Hours: Intake & Output 02/12/20 02/13/20 02/13/20 22:59 06:59 14:59 Intake Total 1150 700 Output Total 700 Balance 1150 0 Lab Results Last 24 Hrs: Laboratory Results - last 24 hr 02/12/20 02/12/20 02/12/20 Range/Units 17:07 17:09 17:09 WBC 17.02 H (4.0-11.0) K/uL RBC 4.49 (4.30-5.90) M/uL Hgb 12.1 (12.0-16.0) g/dL Hct 37.2 (36.0-46.0) % MCV 82.9 (80.0-98.0) fL MCH 26.9 L (27.0-32.0) pg MCHC 32.5 (31.0-37.0) g/dL RDW Std Deviation 45.0 (28.0-62.0) fl RDW Coeff of Kalie 15 (11.0-15.0) % Plt Count 286 (150-400) K/uL MPV 11.10 (7.40-12.00) fL Neut % (Auto) 84.4 H (48.0-80.0) % Lymph % (Auto) 5.1 L (16.0-40.0) % Gregory % (Auto) 10.0 (0.0-15.0) % Eos % (Auto) 0.4 (0.0-7.0) % Baso % (Auto) 0.1 (0.0-1.5) % Neut # (Auto) 14.4 H (1.4-5.7) K/uL Lymph # (Auto) 0.9 (0.6-2.4) K/uL Gregory # (Auto) 1.7 H (0.0-0.8) K/uL Eos # (Auto) 0.1 (0.0-0.7) K/uL Baso # (Auto) 0.0 (0.0-0.1) K/uL Nucleated RBC % 0.0 /100WBC Nucleated RBCs # 0 K/uL Sodium 133 L (136-145) mmol/L Potassium 3.5 (3.5-5.1) mmol/L Chloride 100 (98-107) mmol/L Carbon Dioxide 22.5 (21.0-32.0) mmol/L BUN 7 (7.0-18.0) mg/dL Creatinine 1.2 H (0.6-1.0) mg/dL Est Cr Clr Drug Dosing TNP Estimated GFR (MDRD) 53.9 ml/min Glucose 111 H (74-106) mg/dL Calcium 8.7 (8.5-10.1) mg/dL SARS Virus RNA (PCR) NEGATIVE (NEGATIVE) Blood Type Antibody Screen 02/12/20 Range/Units 17:09 WBC (4.0-11.0) K/uL RBC (4.30-5.90) M/uL Hgb (12.0-16.0) g/dL Hct (36.0-46.0) % MCV (80.0-98.0) fL MCH (27.0-32.0) pg MCHC (31.0-37.0) g/dL RDW Std Deviation (28.0-62.0) fl RDW Coeff of Kalie (11.0-15.0) % Plt Count (150-400) K/uL MPV (7.40-12.00) fL Neut % (Auto) (48.0-80.0) % Lymph % (Auto) (16.0-40.0) % Gregory % (Auto) (0.0-15.0) % Eos % (Auto) (0.0-7.0) % Baso % (Auto) (0.0-1.5) % Neut # (Auto) (1.4-5.7) K/uL Lymph # (Auto) (0.6-2.4) K/uL Gregory # (Auto) (0.0-0.8) K/uL Eos # (Auto) (0.0-0.7) K/uL Baso # (Auto) (0.0-0.1) K/uL Nucleated RBC % /100WBC Nucleated RBCs # K/uL Sodium (136-145) mmol/L Potassium (3.5-5.1) mmol/L Chloride (98-107) mmol/L Carbon Dioxide (21.0-32.0) mmol/L BUN (7.0-18.0) mg/dL Creatinine (0.6-1.0) mg/dL Est Cr Clr Drug Dosing Estimated GFR (MDRD) ml/min Glucose (74-106) mg/dL Calcium (8.5-10.1) mg/dL SARS Virus RNA (PCR) (NEGATIVE) Blood Type A NEGATIVE Antibody Screen NEGATIVE Kevin Results Last 24 Hrs: Microbiology 02/12/20 18:47 Gram Stain - Preliminary [facility] Med Orders - Current: Current Medications Albuterol (Proventil Neb Soln) 2.5 mg NEB ONETIME PRN PRN Reason: Wheezing Atropine Sulfate (Atropine 0.1 Mg/Ml) 0.5 mg IVPUSH ASDIRECTED PRN PRN Reason: Hypo-perfusion Atropine Sulfate (Atropine 0.1 Mg/Ml) 1 mg IVPUSH ASDIRECTED PRN PRN Reason: Hypo-Perfusion Dextrose/Water (Dextrose 50% In Water) 50 ml IVPUSH ASDIRECTED PRN PRN Reason: Hypoglycemia Epinephrine HCl (Epinephrine 1:10,000) 1 mg IVPUSH ASDIRECTED PRN PRN Reason: ACLS Guidelines Fentanyl (Sublimaze) 50 mcg IVPUSH Q5M PRN PRN Reason: Pain Levofloxacin/Dextrose 500 mg/ (Premix) 100 mls @ 100 mls/hr IV Q24H [facility] Ketorolac Tromethamine (Toradol) 30 mg IVPUSH Q6H [facility] Stop: 02/17/20 02:01 Last Admin: 02/13/20 02:30 Dose: 30 mg Documented by: Morphine Sulfate (Morphine) 4 mg IVPUSH Q2H PRN PRN Reason: Pain (severe 7-10) Naloxone HCl (Narcan) 0.1 mg IVPUSH ASDIRECTED PRN PRN Reason: Respiratory Depression Ondansetron HCl (Zofran) 4 mg IVPUSH Q6H PRN PRN Reason: Nausea/Vomiting Oxycodone/Acetaminophen (Percocet 325-5 Mg) 1 tab PO Q4H PRN PRN Reason: Pain (moderate 4-6) Oxycodone/Acetaminophen (Percocet 325-5 Mg) 2 tab PO Q4H PRN PRN Reason: Pain (moderate 4-6) Promethazine HCl (Phenergan) 25 mg IM Q6H PRN PRN Reason: Nausea/Vomiting Discontinued Medications Bupivacaine HCl/Epinephrine Bitart (Marcaine 0.25%/Epinephrine 1:200,000) Confirm Administered Dose 10 ml .ROUTE .STK-MED ONE Stop: 02/12/20 16:54 Cefazolin Sodium (Ancef) Confirm Administered Dose 1 gm .ROUTE .STK-MED ONE Stop: 02/12/20 18:35 Cefazolin Sodium (Ancef) Confirm Administered Dose 1 gm .ROUTE .STK-MED ONE Stop: 02/12/20 18:53 Dexamethasone (Dexamethasone) Confirm Administered Dose 20 mg .ROUTE .STK-MED ONE Stop: 02/12/20 18:54 Fentanyl (Sublimaze) Confirm Administered Dose 100 mcg .ROUTE .STK-MED ONE Stop: 02/12/20 16:44 Fentanyl (Fentanyl) 100 mcg IVPUSH ONETIME ONE Stop: 02/12/20 17:53 Last Admin: 02/12/20 22:55 Dose: Not Given Documented by: Hydromorphone HCl (Dilaudid) Confirm Administered Dose 2 mg .ROUTE .STK-MED ONE Stop: 02/12/20 18:53 Levofloxacin/Dextrose 500 mg/ (Premix) 100 mls @ 100 mls/hr IV ONETIME ONE Stop: 02/12/20 17:51 Last Admin: 02/12/20 18:09 Dose: 100 mls/hr Documented by: Lactated Ringer's (Ringers, Lactated) 1,000 mls @ 999 mls/hr IV ONETIME ONE Stop: 02/12/20 18:24 Last Admin: 02/12/20 18:08 Dose: 999 mls/hr Documented by: Ketorolac Tromethamine (Toradol) Confirm Administered Dose 30 mg .ROUTE .STK-MED ONE Stop: 02/12/20 19:03 Ketorolac Tromethamine (Toradol) 30 mg IVPUSH ONETIME ONE Stop: 02/12/20 19:29 Last Admin: 02/12/20 22:55 Dose: Not Given Documented by: Lidocaine (Xylocaine-Mpf 2%) Confirm Administered Dose 5 ml .ROUTE .STK-MED ONE Stop: 02/12/20 16:44 Midazolam HCl (Versed 1 Mg/Ml) Confirm Administered Dose 2 mg .ROUTE .STK-MED ONE Stop: 02/12/20 16:44 Ondansetron HCl (Zofran) Confirm Administered Dose 4 mg .ROUTE .STK-MED ONE Stop: 02/12/20 18:54 Propofol (Diprivan 20 Ml) Confirm Administered Dose 200 mg .ROUTE .STK-MED ONE Stop: 02/12/20 16:44 - Exam Wound/Incisions: Drainage (nova discharge on dressing), Erythema (Not outside of the borders previously marked with marking pen resolving) General: Alert, Oriented HEENT: Pupils Equal Neck: Supple Lungs: Clear to Auscultation, Normal Respiratory Effort Cardiovascular: Regular Rate, Regular Rhythm GI/Abdominal Exam: Normal Bowel Sounds, Soft, Non-Tender, No Organomegaly, No Distention, No Abnormal Bruit, No Mass, Pelvis Stable Extremities: Normal Inspection, Normal Range of Motion, Non-Tender, No Pedal Edema, Normal Capillary Refill Skin: Warm, Dry, Intact Neurological: No New Focal Deficit Psy/Mental Status: Alert, Normal Affect, Normal Mood Sepsis Event Note - Evaluation Sepsis Screening Result: No Definite Risk - Focused Exam Vital Signs: Vital Signs Temp Pulse Resp BP BP Pulse Ox 02/13/20 04:03 98.2 F 70 16 108/58 L 95 02/12/20 23:55 97.5 F 82 18 123/57 L 94 L 02/12/20 23:00 97.9 F 89 119/63 94 L 02/12/20 22:00 98.1 F 86 120/65 95 02/12/20 21:30 97.7 F 94 120/57 L 98 02/12/20 21:00 98.9 F 79 113/67 96 02/12/20 20:45 98.6 F 87 120/75 93 L 02/12/20 20:30 98.9 F 81 109/55 L 94 L 02/12/20 20:15 98.9 F 84 109/57 L 93 L 02/12/20 19:55 98.7 F 89 16 112/60 95 02/12/20 19:39 90 13 114/63 99 02/12/20 19:34 91 18 112/64 99 Date Exam was Performed: 02/13/20 Time Exam was Performed: 07:32 - My Orders Last 24 Hours: Active Orders 24 hr Category Date Time Status Admission Status [Patient Status] [ADT] Routine ADT 02/12/20 16:51 Active Antiembolic Devices [RC] PER UNIT ROUTINE Care 02/12/20 19:29 Active Blood Glucose Check, Bedside [RC] PRN Care 02/12/20 19:26 Active Notify Provider Intake and Out [RC] ASDIRECTED Care 02/12/20 19:28 Active Notify Provider Vital Signs [RC] ASDIRECTED Care 02/12/20 19:28 Active Oxygen Therapy [RC] ASDIRECTED Care 02/12/20 19:28 Active RT Aerosol Therapy [RC] ASDIRECTED Care 02/12/20 19:26 Active RT Incentive Spirometry [RC] Q2HWA Care 02/12/20 19:28 Active Up With Assistance [RC] PER UNIT ROUTINE Care 02/12/20 19:28 Active Up ad Nidhi [RC] PER UNIT ROUTINE Care 02/12/20 19:28 Active Vital Signs [RC] Q4H Care 02/12/20 19:28 Active Regular Diet [DIET] Diet 02/13/20 Breakfast Active ANAEROBIC CULTURE Routine Lab 02/12/20 18:47 Received CBC WITH AUTO DIFF [HEME] Routine Lab 02/13/20 15:00 Ordered CULTURE WOUND [RM] Routine Lab 02/12/20 18:47 Results GRAM STAIN [RM] Routine Lab 02/12/20 18:47 Results Acetaminophen/oxyCODONE [Percocet 325-5 MG] Med 02/12/20 19:28 Active 1 tab PO Q4H PRN Acetaminophen/oxyCODONE [Percocet 325-5 MG] Med 02/12/20 19:28 Active 2 tab PO Q4H PRN Albuterol [Proventil Neb Soln] Med 02/12/20 19:26 Active 2.5 mg NEB ONETIME PRN Atropine [Atropine 0.1 MG/ML] Med 02/12/20 19:26 Active 0.5 mg IVPUSH ASDIRECTED PRN Atropine [Atropine 0.1 MG/ML] Med 02/12/20 19:26 Active 1 mg IVPUSH ASDIRECTED PRN Dextrose 50% in Water Med 02/12/20 19:26 Active 50 ml IVPUSH ASDIRECTED PRN EPINEPHrine [EPINEPHrine 1:10,000] Med 02/12/20 19:26 Active 1 mg IVPUSH ASDIRECTED PRN Ketorolac [Toradol] Med 02/13/20 02:00 Active 30 mg IVPUSH Q6H Levofloxacin/Dextrose 5%-Water [Levaquin in D5W 500 MG/ Med 02/13/20 18:00 Active 100 ML] 500 mg Premix Bag 1 bag IV Q24H Morphine Med 02/12/20 19:28 Active 4 mg IVPUSH Q2H PRN Naloxone [Narcan] Med 02/12/20 19:26 Active 0.1 mg IVPUSH ASDIRECTED PRN Ondansetron [Zofran] Med 02/12/20 19:28 Active 4 mg IVPUSH Q6H PRN Promethazine [Phenergan] Med 02/12/20 19:28 Active 25 mg IM Q6H PRN fentaNYL [Sublimaze] Med 02/12/20 19:26 Active 50 mcg IVPUSH Q5M PRN Peripheral IV Discontinue [OM.PC] Routine Oth 02/12/20 19:28 Ordered Sequential Compression Device [OM.PC] Per Unit Routine Oth 02/12/20 19:28 Ordered Sequential Compression Device [OM.PC] Routine Oth 02/12/20 17:28 Ordered Resuscitation Status Routine Resus Stat 02/12/20 19:28 Ordered Medication Orders Albuterol (Proventil Neb Soln) 2.5 mg NEB ONETIME PRN PRN Reason: Wheezing Atropine Sulfate (Atropine 0.1 Mg/Ml) 0.5 mg IVPUSH ASDIRECTED PRN PRN Reason: Hypo-perfusion Atropine Sulfate (Atropine 0.1 Mg/Ml) 1 mg IVPUSH ASDIRECTED PRN PRN Reason: Hypo-Perfusion Dextrose/Water (Dextrose 50% In Water) 50 ml IVPUSH ASDIRECTED PRN PRN Reason: Hypoglycemia Epinephrine HCl (Epinephrine 1:10,000) 1 mg IVPUSH ASDIRECTED PRN PRN Reason: ACLS Guidelines Fentanyl (Sublimaze) 50 mcg IVPUSH Q5M PRN PRN Reason: Pain Levofloxacin/Dextrose 500 mg/ (Premix) 100 mls @ 100 mls/hr IV Q24H [facility] Ketorolac Tromethamine (Toradol) 30 mg IVPUSH Q6H [facility] Stop: 02/17/20 02:01 Last Admin: 02/13/20 02:30 Dose: 30 mg Documented by: CISSMAR Morphine Sulfate (Morphine) 4 mg IVPUSH Q2H PRN PRN Reason: Pain (severe 7-10) Naloxone HCl (Narcan) 0.1 mg IVPUSH ASDIRECTED PRN PRN Reason: Respiratory Depression Ondansetron HCl (Zofran) 4 mg IVPUSH Q6H PRN PRN Reason: Nausea/Vomiting Oxycodone/Acetaminophen (Percocet 325-5 Mg) 1 tab PO Q4H PRN PRN Reason: Pain (moderate 4-6) Oxycodone/Acetaminophen (Percocet 325-5 Mg) 2 tab PO Q4H PRN PRN Reason: Pain (moderate 4-6) Promethazine HCl (Phenergan) 25 mg IM Q6H PRN PRN Reason: Nausea/Vomiting - Assessment Assessment (Free Text/Narrative):: 29 yo s/p I&D with wound exploration for umbilical incisional wound abscess POD1, progressing well - Plan Plan (Free Text/Narrative):: Observation today Diet as tolerated Adequate fluids Ambulation Scheduled Toradol PRN percocet 2nd dose of levofloxacin tonight at 1800 Unpack and repack wound this evening Possible discharge tonight pending patient status, may observe another night <Kerri Son - Last Filed: 02/13/20 13:23> - Patient Data Vitals - Most Recent: Last Vital Signs Temp 36.0 C L 02/13/20 11:55 Pulse 70 02/13/20 11:55 Resp 15 02/13/20 11:55 BP 95/59 L 02/13/20 11:55 Pulse Ox 96 02/13/20 11:55 I&O - Last 24 Hours: Intake & Output 02/12/20 02/13/20 02/13/20 22:59 06:59 14:59 Intake Total 1150 700 Output Total 700 Balance 1150 0 Lab Results Last 24 Hrs: Laboratory Results - last 24 hr 02/12/20 02/12/20 02/12/20 Range/Units 17:07 17:09 17:09 WBC 17.02 H (4.0-11.0) K/uL RBC 4.49 (4.30-5.90) M/uL Hgb 12.1 (12.0-16.0) g/dL Hct 37.2 (36.0-46.0) % MCV 82.9 (80.0-98.0) fL MCH 26.9 L (27.0-32.0) pg MCHC 32.5 (31.0-37.0) g/dL RDW Std Deviation 45.0 (28.0-62.0) fl RDW Coeff of Kalie 15 (11.0-15.0) % Plt Count 286 (150-400) K/uL MPV 11.10 (7.40-12.00) fL Neut % (Auto) 84.4 H (48.0-80.0) % Lymph % (Auto) 5.1 L (16.0-40.0) % Gregory % (Auto) 10.0 (0.0-15.0) % Eos % (Auto) 0.4 (0.0-7.0) % Baso % (Auto) 0.1 (0.0-1.5) % Neut # (Auto) 14.4 H (1.4-5.7) K/uL Lymph # (Auto) 0.9 (0.6-2.4) K/uL Gregory # (Auto) 1.7 H (0.0-0.8) K/uL Eos # (Auto) 0.1 (0.0-0.7) K/uL Baso # (Auto) 0.0 (0.0-0.1) K/uL Nucleated RBC % 0.0 /100WBC Nucleated RBCs # 0 K/uL Sodium 133 L (136-145) mmol/L Potassium 3.5 (3.5-5.1) mmol/L Chloride 100 (98-107) mmol/L Carbon Dioxide 22.5 (21.0-32.0) mmol/L BUN 7 (7.0-18.0) mg/dL Creatinine 1.2 H (0.6-1.0) mg/dL Est Cr Clr Drug Dosing TNP Estimated GFR (MDRD) 53.9 ml/min Glucose 111 H (74-106) mg/dL Calcium 8.7 (8.5-10.1) mg/dL SARS Virus RNA (PCR) NEGATIVE (NEGATIVE) Blood Type Antibody Screen 02/12/20 Range/Units 17:09 WBC (4.0-11.0) K/uL RBC (4.30-5.90) M/uL Hgb (12.0-16.0) g/dL Hct (36.0-46.0) % MCV (80.0-98.0) fL MCH (27.0-32.0) pg MCHC (31.0-37.0) g/dL RDW Std Deviation (28.0-62.0) fl RDW Coeff of Kalie (11.0-15.0) % Plt Count (150-400) K/uL MPV (7.40-12.00) fL Neut % (Auto) (48.0-80.0) % Lymph % (Auto) (16.0-40.0) % Gregory % (Auto) (0.0-15.0) % Eos % (Auto) (0.0-7.0) % Baso % (Auto) (0.0-1.5) % Neut # (Auto) (1.4-5.7) K/uL Lymph # (Auto) (0.6-2.4) K/uL Gregory # (Auto) (0.0-0.8) K/uL Eos # (Auto) (0.0-0.7) K/uL Baso # (Auto) (0.0-0.1) K/uL Nucleated RBC % /100WBC Nucleated RBCs # K/uL Sodium (136-145) mmol/L Potassium (3.5-5.1) mmol/L Chloride (98-107) mmol/L Carbon Dioxide (21.0-32.0) mmol/L BUN (7.0-18.0) mg/dL Creatinine (0.6-1.0) mg/dL Est Cr Clr Drug Dosing Estimated GFR (MDRD) ml/min Glucose (74-106) mg/dL Calcium (8.5-10.1) mg/dL SARS Virus RNA (PCR) (NEGATIVE) Blood Type A NEGATIVE Antibody Screen NEGATIVE Kevin Results Last 24 Hrs: Microbiology 02/12/20 18:47 Gram Stain - Preliminary [facility] Med Orders - Current: Current Medications Albuterol (Proventil Neb Soln) 2.5 mg NEB ONETIME PRN PRN Reason: Wheezing Atropine Sulfate (Atropine 0.1 Mg/Ml) 0.5 mg IVPUSH ASDIRECTED PRN PRN Reason: Hypo-perfusion Atropine Sulfate (Atropine 0.1 Mg/Ml) 1 mg IVPUSH ASDIRECTED PRN PRN Reason: Hypo-Perfusion Dextrose/Water (Dextrose 50% In Water) 50 ml IVPUSH ASDIRECTED PRN PRN Reason: Hypoglycemia Epinephrine HCl (Epinephrine 1:10,000) 1 mg IVPUSH ASDIRECTED PRN PRN Reason: ACLS Guidelines Fentanyl (Sublimaze) 50 mcg IVPUSH Q5M PRN PRN Reason: Pain Levofloxacin/Dextrose 500 mg/ (Premix) 100 mls @ 100 mls/hr IV Q24H [facility] Ketorolac Tromethamine (Toradol) 30 mg IVPUSH Q6H [facility] Stop: 02/17/20 02:01 Last Admin: 02/13/20 08:29 Dose: 30 mg Documented by: Morphine Sulfate (Morphine) 4 mg IVPUSH Q2H PRN PRN Reason: Pain (severe 7-10) Naloxone HCl (Narcan) 0.1 mg IVPUSH ASDIRECTED PRN PRN Reason: Respiratory Depression Ondansetron HCl (Zofran) 4 mg IVPUSH Q6H PRN PRN Reason: Nausea/Vomiting Oxycodone/Acetaminophen (Percocet 325-5 Mg) 1 tab PO Q4H PRN PRN Reason: Pain (moderate 4-6) Oxycodone/Acetaminophen (Percocet 325-5 Mg) 2 tab PO Q4H PRN PRN Reason: Pain (moderate 4-6) Promethazine HCl (Phenergan) 25 mg IM Q6H PRN PRN Reason: Nausea/Vomiting Discontinued Medications Bupivacaine HCl/Epinephrine Bitart (Marcaine 0.25%/Epinephrine 1:200,000) Confirm Administered Dose 10 ml .ROUTE .STK-MED ONE Stop: 02/12/20 16:54 Cefazolin Sodium (Ancef) Confirm Administered Dose 1 gm .ROUTE .STK-MED ONE Stop: 02/12/20 18:35 Cefazolin Sodium (Ancef) Confirm Administered Dose 1 gm .ROUTE .STK-MED ONE Stop: 02/12/20 18:53 Dexamethasone (Dexamethasone) Confirm Administered Dose 20 mg .ROUTE .STK-MED ONE Stop: 02/12/20 18:54 Fentanyl (Sublimaze) Confirm Administered Dose 100 mcg .ROUTE .STK-MED ONE Stop: 02/12/20 16:44 Fentanyl (Fentanyl) 100 mcg IVPUSH ONETIME ONE Stop: 02/12/20 17:53 Last Admin: 02/12/20 22:55 Dose: Not Given Documented by: Hydromorphone HCl (Dilaudid) Confirm Administered Dose 2 mg .ROUTE .STK-MED ONE Stop: 02/12/20 18:53 Levofloxacin/Dextrose 500 mg/ (Premix) 100 mls @ 100 mls/hr IV ONETIME ONE Stop: 02/12/20 17:51 Last Admin: 02/12/20 18:09 Dose: 100 mls/hr Documented by: Lactated Ringer's (Ringers, Lactated) 1,000 mls @ 999 mls/hr IV ONETIME ONE Stop: 02/12/20 18:24 Last Admin: 02/12/20 18:08 Dose: 999 mls/hr Documented by: Ketorolac Tromethamine (Toradol) Confirm Administered Dose 30 mg .ROUTE .STK-MED ONE Stop: 02/12/20 19:03 Ketorolac Tromethamine (Toradol) 30 mg IVPUSH ONETIME ONE Stop: 02/12/20 19:29 Last Admin: 02/12/20 22:55 Dose: Not Given Documented by: Lidocaine (Xylocaine-Mpf 2%) Confirm Administered Dose 5 ml .ROUTE .STK-MED ONE Stop: 02/12/20 16:44 Midazolam HCl (Versed 1 Mg/Ml) Confirm Administered Dose 2 mg .ROUTE .STK-MED ON E Stop: 02/12/20 16:44 Ondansetron HCl (Zofran) Confirm Administered Dose 4 mg .ROUTE .STK-MED ONE Stop: 02/12/20 18:54 Propofol (Diprivan 20 Ml) Confirm Administered Dose 200 mg .ROUTE .STK-MED ONE Stop: 02/12/20 16:44 Sepsis Event Note - Focused Exam Vital Signs: Vital Signs Temp Pulse Resp BP Pulse Ox 02/13/20 11:55 36.0 C L 70 15 95/59 L 96 02/13/20 04:03 36.8 C 70 16 108/58 L 95 Date Exam was Performed: 02/13/20 Time Exam was Performed: 13:23 - Problem List Review Problem List Initiated/Reviewed/Updated: Yes - My Orders Last 24 Hours: Active Orders 24 hr Category Date Time Status Admission Status [Patient Status] [ADT] Routine ADT 02/12/20 16:51 Active Antiembolic Devices [RC] PER UNIT ROUTINE Care 02/12/20 19:29 Active Blood Glucose Check, Bedside [RC] PRN Care 02/12/20 19:26 Active Notify Provider Intake and Out [RC] ASDIRECTED Care 02/12/20 19:28 Active Notify Provider Vital Signs [RC] ASDIRECTED Care 02/12/20 19:28 Active Oxygen Therapy [RC] ASDIRECTED Care 02/12/20 19:28 Active RT Aerosol Therapy [RC] ASDIRECTED Care 02/12/20 19:26 Active RT Incentive Spirometry [RC] Q2HWA Care 02/12/20 19:28 Active Up With Assistance [RC] PER UNIT ROUTINE Care 02/12/20 19:28 Active Up ad Nidhi [RC] PER UNIT ROUTINE Care 02/12/20 19:28 Active Vital Signs [RC] Q4H Care 02/12/20 19:28 Active Regular Diet [DIET] Diet 02/13/20 Breakfast Active ANAEROBIC CULTURE Routine Lab 02/12/20 18:47 Received CBC WITH AUTO DIFF [HEME] Routine Lab 02/13/20 15:00 Ordered CULTURE WOUND [RM] Routine Lab 02/12/20 18:47 Results GRAM STAIN [RM] Routine Lab 02/12/20 18:47 Results Acetaminophen/oxyCODONE [Percocet 325-5 MG] Med 02/12/20 19:28 Active 1 tab PO Q4H PRN Acetaminophen/oxyCODONE [Percocet 325-5 MG] Med 02/12/20 19:28 Active 2 tab PO Q4H PRN Albuterol [Proventil Neb Soln] Med 02/12/20 19:26 Active 2.5 mg NEB ONETIME PRN Atropine [Atropine 0.1 MG/ML] Med 02/12/20 19:26 Active 0.5 mg IVPUSH ASDIRECTED PRN Atropine [Atropine 0.1 MG/ML] Med 02/12/20 19:26 Active 1 mg IVPUSH ASDIRECTED PRN Dextrose 50% in Water Med 02/12/20 19:26 Active 50 ml IVPUSH ASDIRECTED PRN EPINEPHrine [EPINEPHrine 1:10,000] Med 02/12/20 19:26 Active 1 mg IVPUSH ASDIRECTED PRN Ketorolac [Toradol] Med 02/13/20 02:00 Active 30 mg IVPUSH Q6H Levofloxacin/Dextrose 5%-Water [Levaquin in D5W 500 MG/ Med 02/13/20 17:00 Active 100 ML] 500 mg Premix Bag 1 bag IV Q24H Morphine Med 02/12/20 19:28 Active 4 mg IVPUSH Q2H PRN Naloxone [Narcan] Med 02/12/20 19:26 Active 0.1 mg IVPUSH ASDIRECTED PRN Ondansetron [Zofran] Med 02/12/20 19:28 Active 4 mg IVPUSH Q6H PRN Promethazine [Phenergan] Med 02/12/20 19:28 Active 25 mg IM Q6H PRN fentaNYL [Sublimaze] Med 02/12/20 19:26 Active 50 mcg IVPUSH Q5M PRN Peripheral IV Discontinue [OM.PC] Routine Oth 02/12/20 19:28 Ordered Sequential Compression Device [OM.PC] Per Unit Routine Oth 02/12/20 19:28 Ordered Sequential Compression Device [OM.PC] Routine Oth 02/12/20 17:28 Ordered Resuscitation Status Routine Resus Stat 02/12/20 19:28 Ordered Medication Orders Albuterol (Proventil Neb Soln) 2.5 mg NEB ONETIME PRN PRN Reason: Wheezing Atropine Sulfate (Atropine 0.1 Mg/Ml) 0.5 mg IVPUSH ASDIRECTED PRN PRN Reason: Hypo-perfusion Atropine Sulfate (Atropine 0.1 Mg/Ml) 1 mg IVPUSH ASDIRECTED PRN PRN Reason: Hypo-Perfusion Dextrose/Water (Dextrose 50% In Water) 50 ml IVPUSH ASDIRECTED PRN PRN Reason: Hypoglycemia Epinephrine HCl (Epinephrine 1:10,000) 1 mg IVPUSH ASDIRECTED PRN PRN Reason: ACLS Guidelines Fentanyl (Sublimaze) 50 mcg IVPUSH Q5M PRN PRN Reason: Pain Levofloxacin/Dextrose 500 mg/ (Premix) 100 mls @ 100 mls/hr IV Q24H [facility] Ketorolac Tromethamine (Toradol) 30 mg IVPUSH Q6H [facility] Stop: 02/17/20 02:01 Last Admin: 02/13/20 08:29 Dose: 30 mg Documented by: Admin: 02/13/20 02:30 Dose: 30 mg Documented by: NURIS Morphine Sulfate (Morphine) 4 mg IVPUSH Q2H PRN PRN Reason: Pain (severe 7-10) Naloxone HCl (Narcan) 0.1 mg IVPUSH ASDIRECTED PRN PRN Reason: Respiratory Depression Ondansetron HCl (Zofran) 4 mg IVPUSH Q6H PRN PRN Reason: Nausea/Vomiting Oxycodone/Acetaminophen (Percocet 325-5 Mg) 1 tab PO Q4H PRN PRN Reason: Pain (moderate 4-6) Oxycodone/Acetaminophen (Percocet 325-5 Mg) 2 tab PO Q4H PRN PRN Reason: Pain (moderate 4-6) Promethazine HCl (Phenergan) 25 mg IM Q6H PRN PRN Reason: Nausea/Vomiting
[2020-02-13] MEDS ORDERED: fentaNYL 50 MCG/ML SDV IVPUSH ONE (16:31)
--- NOTE | 2020-02-13 16:50 | PCM.PN ---
- General Info Date of Service: 02/13/20 Functional Status: Reports: Pain Controlled, Tolerating Diet, Ambulating, Urinating - Review of Systems General: Reports: No Symptoms HEENT: Reports: No Symptoms Pulmonary: Reports: No Symptoms Cardiovascular: Reports: No Symptoms Gastrointestinal: Reports: No Symptoms Genitourinary: Reports: No Symptoms Musculoskeletal: Reports: No Symptoms Skin: Reports: No Symptoms Neurological: Reports: No Symptoms Psychiatric: Reports: No Symptoms - Patient Data Vitals - Most Recent: Last Vital Signs Temp 36.0 C L 02/13/20 11:55 Pulse 70 02/13/20 11:55 Resp 15 02/13/20 11:55 BP 95/59 L 02/13/20 11:55 Pulse Ox 96 02/13/20 11:55 Weight - Most Recent: 112.808 kg I&O - Last 24 Hours: Intake & Output 02/13/20 02/13/20 02/13/20 06:59 14:59 22:59 Intake Total 700 Output Total 700 Balance 0 Lab Results Last 24 Hours: Laboratory Results - last 24 hr 02/12/20 02/12/20 02/12/20 Range/Units 17:07 17:09 17:09 WBC 17.02 H (4.0-11.0) K/uL RBC 4.49 (4.30-5.90) M/uL Hgb 12.1 (12.0-16.0) g/dL Hct 37.2 (36.0-46.0) % MCV 82.9 (80.0-98.0) fL MCH 26.9 L (27.0-32.0) pg MCHC 32.5 (31.0-37.0) g/dL RDW Std Deviation 45.0 (28.0-62.0) fl RDW Coeff of Kalie 15 (11.0-15.0) % Plt Count 286 (150-400) K/uL MPV 11.10 (7.40-12.00) fL Neut % (Auto) 84.4 H (48.0-80.0) % Lymph % (Auto) 5.1 L (16.0-40.0) % [place] % (Auto) 10.0 (0.0-15.0) % Eos % (Auto) 0.4 (0.0-7.0) % Baso % (Auto) 0.1 (0.0-1.5) % Neut # (Auto) 14.4 H (1.4-5.7) K/uL Lymph # (Auto) 0.9 (0.6-2.4) K/uL [place] # (Auto) 1.7 H (0.0-0.8) K/uL Eos # (Auto) 0.1 (0.0-0.7) K/uL Baso # (Auto) 0.0 (0.0-0.1) K/uL Nucleated RBC % 0.0 /100WBC Nucleated RBCs # 0 K/uL Sodium 133 L (136-145) mmol/L Potassium 3.5 (3.5-5.1) mmol/L Chloride 100 (98-107) mmol/L Carbon Dioxide 22.5 (21.0-32.0) mmol/L BUN 7 (7.0-18.0) mg/dL Creatinine 1.2 H (0.6-1.0) mg/dL Est Cr Clr Drug Dosing TNP Estimated GFR (MDRD) 53.9 ml/min Glucose 111 H (74-106) mg/dL Calcium 8.7 (8.5-10.1) mg/dL SARS Virus RNA (PCR) NEGATIVE (NEGATIVE) Blood Type Antibody Screen 02/12/20 02/13/20 Range/Units 17:09 15:15 WBC 17.78 H (4.0-11.0) K/uL RBC 4.23 L (4.30-5.90) M/uL Hgb 11.3 L (12.0-16.0) g/dL Hct 35.2 L (36.0-46.0) % MCV 83.2 (80.0-98.0) fL MCH 26.7 L (27.0-32.0) pg MCHC 32.1 (31.0-37.0) g/dL RDW Std Deviation 45.5 (28.0-62.0) fl RDW Coeff of Kalie 15 (11.0-15.0) % Plt Count 331 (150-400) K/uL MPV 10.90 (7.40-12.00) fL Neut % (Auto) 87.3 H (48.0-80.0) % Lymph % (Auto) 5.8 L (16.0-40.0) % [place] % (Auto) 6.8 (0.0-15.0) % Eos % (Auto) 0.0 (0.0-7.0) % Baso % (Auto) 0.1 (0.0-1.5) % Neut # (Auto) 15.5 H (1.4-5.7) K/uL Lymph # (Auto) 1.0 (0.6-2.4) K/uL [place] # (Auto) 1.2 H (0.0-0.8) K/uL Eos # (Auto) 0.0 (0.0-0.7) K/uL Baso # (Auto) 0.0 (0.0-0.1) K/uL Nucleated RBC % 0.0 /100WBC Nucleated RBCs # 0 K/uL Sodium (136-145) mmol/L Potassium (3.5-5.1) mmol/L Chloride (98-107) mmol/L Carbon Dioxide (21.0-32.0) mmol/L BUN (7.0-18.0) mg/dL Creatinine (0.6-1.0) mg/dL Est Cr Clr Drug Dosing Estimated GFR (MDRD) ml/min Glucose (74-106) mg/dL Calcium (8.5-10.1) mg/dL SARS Virus RNA (PCR) (NEGATIVE) Blood Type A NEGATIVE Antibody Screen NEGATIVE Kevin Results Last 24 Hours: Microbiology 02/12/20 18:47 Gram Stain - Preliminary [facility] Med Orders - Current: Current Medications Albuterol (Proventil Neb Soln) 2.5 mg NEB ONETIME PRN PRN Reason: Wheezing Atropine Sulfate (Atropine 0.1 Mg/Ml) 0.5 mg IVPUSH ASDIRECTED PRN PRN Reason: Hypo-perfusion Atropine Sulfate (Atropine 0.1 Mg/Ml) 1 mg IVPUSH ASDIRECTED PRN PRN Reason: Hypo-Perfusion Dextrose/Water (Dextrose 50% In Water) 50 ml IVPUSH ASDIRECTED PRN PRN Reason: Hypoglycemia Epinephrine HCl (Epinephrine 1:10,000) 1 mg IVPUSH ASDIRECTED PRN PRN Reason: ACLS Guidelines Fentanyl (Sublimaze) 50 mcg IVPUSH Q5M PRN PRN Reason: Pain Levofloxacin/Dextrose 500 mg/ (Premix) 100 mls @ 100 mls/hr IV Q24H [facility] Ketorolac Tromethamine (Toradol) 30 mg IVPUSH Q6H [facility] Stop: 02/17/20 02:01 Last Admin: 02/13/20 14:51 Dose: 30 mg Documented by: Morphine Sulfate (Morphine) 4 mg IVPUSH Q2H PRN PRN Reason: Pain (severe 7-10) Naloxone HCl (Narcan) 0.1 mg IVPUSH ASDIRECTED PRN PRN Reason: Respiratory Depression Ondansetron HCl (Zofran) 4 mg IVPUSH Q6H PRN PRN Reason: Nausea/Vomiting Last Admin: 02/13/20 15:23 Dose: 4 mg Documented by: Oxycodone/Acetaminophen (Percocet 325-5 Mg) 1 tab PO Q4H PRN PRN Reason: Pain (moderate 4-6) Oxycodone/Acetaminophen (Percocet 325-5 Mg) 2 tab PO Q4H PRN PRN Reason: Pain (moderate 4-6) Promethazine HCl (Phenergan) 25 mg IM Q6H PRN PRN Reason: Nausea/Vomiting Discontinued Medications Bupivacaine HCl/Epinephrine Bitart (Marcaine 0.25%/Epinephrine 1:200,000) Confirm Administered Dose 10 ml .ROUTE .STK-MED ONE Stop: 02/12/20 16:54 Cefazolin Sodium (Ancef) Confirm Administered Dose 1 gm .ROUTE .STK-MED ONE Stop: 02/12/20 18:35 Cefazolin Sodium (Ancef) Confirm Administered Dose 1 gm .ROUTE .STK-MED ONE Stop: 02/12/20 18:53 Dexamethasone (Dexamethasone) Confirm Administered Dose 20 mg .ROUTE .STK-MED ONE Stop: 02/12/20 18:54 Fentanyl (Sublimaze) Confirm Administered Dose 100 mcg .ROUTE .STK-MED ONE Stop: 02/12/20 16:44 Fentanyl (Fentanyl) 100 mcg IVPUSH ONETIME ONE Stop: 02/12/20 17:53 Last Admin: 02/12/20 22:55 Dose: Not Given Documented by: Fentanyl (Fentanyl) 100 mcg IVPUSH ONETIME ONE Stop: 02/13/20 16:32 Hydromorphone HCl (Dilaudid) Confirm Administered Dose 2 mg .ROUTE .STK-MED ONE Stop: 02/12/20 18:53 Levofloxacin/Dextrose 500 mg/ (Premix) 100 mls @ 100 mls/hr IV ONETIME ONE Stop: 02/12/20 17:51 Last Admin: 02/12/20 18:09 Dose: 100 mls/hr Documented by: Lactated Ringer's (Ringers, Lactated) 1,000 mls @ 999 mls/hr IV ONETIME ONE Stop: 02/12/20 18:24 Last Admin: 02/12/20 18:08 Dose: 999 mls/hr Documented by: Ketorolac Tromethamine (Toradol) Confirm Administered Dose 30 mg .ROUTE .STK-MED ONE Stop: 02/12/20 19:03 Ketorolac Tromethamine (Toradol) 30 mg IVPUSH ONETIME ONE Stop: 02/12/20 19:29 Last Admin: 02/12/20 22:55 Dose: Not Given Documented by: Lidocaine (Xylocaine-Mpf 2%) Confirm Administered Dose 5 ml .ROUTE .STK-MED ONE Stop: 02/12/20 16:44 Midazolam HCl (Versed 1 Mg/Ml) Confirm Administered Dose 2 mg .ROUTE .STK-MED ONE Stop: 02/12/20 16:44 Ondansetron HCl (Zofran) Confirm Administered Dose 4 mg .ROUTE .STK-MED ONE Stop: 02/12/20 18:54 Propofol (Diprivan 20 Ml) Confirm Administered Dose 200 mg .ROUTE .STK-MED ONE Stop: 02/12/20 16:44 - Exam General: Alert, Oriented GI/Abdominal Exam: Normal Bowel Sounds, Soft, Non-Tender, No Distention Wound/Incisions: Erythema Improving, Other (surrounding erythema decreased, dressing removed and repacked, no foul odor, tender in area of erythema otherwise non tender to deep palpation) Psy/Mental Status: Alert, Normal Affect, Normal Mood Sepsis Event Note - Evaluation Sepsis Screening Result: No Definite Risk - Focused Exam Vital Signs: Vital Signs Temp Pulse Resp BP Pulse Ox 02/13/20 11:55 36.0 C L 70 15 95/59 L 96 Date Exam was Performed: 02/13/20 Time Exam was Performed: 16:46 - Problem List & Annotations (1) Abdominal wall abscess at site of surgical wound SNOMED Code(s): 105709922 Code(s): T81.49XA - INFECTION FOLLOWING A PROCEDURE, OTHER SURGICAL SITE, INIT Status: Acute Current Visit: Yes - Problem List Review Problem List Initiated/Reviewed/Updated: Yes - My Orders Last 24 Hours: My Active Orders 02/12/20 16:51 Admission Status [Patient Status] [ADT] Routine 02/12/20 17:28 Sequential Compression Device [OM.PC] Routine 02/12/20 18:47 ANAEROBIC CULTURE Routine CULTURE WOUND [RM] Routine GRAM STAIN [RM] Routine 02/12/20 19:28 Notify Provider Intake and Out [RC] ASDIRECTED Notify Provider Vital Signs [RC] ASDIRECTED Oxygen Therapy [RC] ASDIRECTED RT Incentive Spirometry [RC] Q2HWA Up With Assistance [RC] PER UNIT ROUTINE Up ad Nidhi [RC] PER UNIT ROUTINE Vital Signs [RC] Q4H Acetaminophen/oxyCODONE [Percocet 325-5 MG] 1 tab PO Q4H PRN Acetaminophen/oxyCODONE [Percocet 325-5 MG] 2 tab PO Q4H PRN Morphine 4 mg IVPUSH Q2H PRN Ondansetron [Zofran] 4 mg IVPUSH Q6H PRN Promethazine [Phenergan] 25 mg IM Q6H PRN Peripheral IV Discontinue [OM.PC] Routine Sequential Compression Device [OM.PC] Per Unit Routine Resuscitation Status Routine 02/12/20 19:29 Antiembolic Devices [RC] PER UNIT ROUTINE 02/13/20 02:00 Ketorolac [Toradol] 30 mg IVPUSH Q6H 02/13/20 Breakfast Regular Diet [DIET] 02/13/20 16:45 Ready for Discharge [RC] PER UNIT ROUTINE 02/13/20 17:00 Levofloxacin/Dextrose 5%-Water [Levaquin in D5W 500 MG/100 ML] 500 mg Premix Bag 1 bag IV Q24H - Assessment Assessment:: POD 1 from incision and drainage of abdominal wall abscess resulting from prior wound. Pain is resolved except when dressing s are changed. WBC still elevated, but afebrile with normal vitals for 24 hours. Will dismiss to home, return daily for dressing changes in the clinic, call acutely if fever or worsening pain. 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 Will continue on Levaquin until culture results are available.
[2020-02-13] MEDS ORDERED: Levofloxacin/Dextrose 5%-Water 500 MG in Premix Bag 1 BAG IV SCH (17:00)
[2020-02-13 17:58] VITALS: BP 111/71; PULSE 78
== END 2020-02-13 18:35 | disposition home or self-care (01) ==
LOC: MW.SDS 16:29 → MW.MS 16:40 → MW.SDS 02-13 18:35
PROVIDERS: ATTEND Obstetrics & Gynecology
DX: T81.41XA Infection following a procedure, superficial incisional surgical site, initial encounter (principal); B96.89 Other specified bacterial agents as the cause of diseases classified elsewhere; E66.9 Obesity, unspecified; K21.9 Gastro-esophageal reflux disease without esophagitis; Z11.59 Encounter for screening for other viral diseases; Z90.722 Acquired absence of ovaries, bilateral; Z88.8 Allergy status to other drugs, medicaments and biological substances; Z68.38 Body mass index [BMI] 38.0-38.9, adult
CPT/HCPCS: 10180; 36415; 80048; 85025; 86850; 86900; 86901; 87070; 87075; 87076; 87205; 87635; J0690; J1100; J1170; J1885; J1956; J2001; J2250; J2405; J2704; J3010; J3490; J7120; 00400; U0002

== ENCOUNTER 2020-02-14 15:35 | Inpatient (IN) | payer BC, OTHER ==
[2020-02-14] MEDS ORDERED: HYDROmorphone 1 MG/ML Syringe IVPUSH ONE ×2 (16:00→18:27)
[2020-02-14] MEDS ORDERED: Sodium Chloride 0.9% 2.5 ML Syringe FLUSH PRN (16:00)
[2020-02-14] MEDS ORDERED: Sodium Chloride 0.9% 10 ML Syringe FLUSH PRN (16:00)
[2020-02-14] MEDS ORDERED: Lactated Ringers 1,000 ML IV SCH ×2 (16:15→20:30)
[2020-02-14 16:34] LABS: BLOOD UREA NITROGEN,BUN 15 mg/dL (7.0-18.0); CARBON DIOXIDE,CO2 25.9 mmol/L (21.0-32.0); CHLORIDE,CL 105 mmol/L (98-107); GLUCOSE RANDOM 85 mg/dL (74-106); LIPASE 102 U/L (73-393); POTASSIUM,K 3.6 mmol/L (3.5-5.1); SODIUM,NA 140 mmol/L (136-145)
[2020-02-14] MEDS ORDERED: Piperacillin/Tazobactam 4.5 GM in Sodium Chloride 0.9% 100 ML IV ONE (17:42)
[2020-02-14] MEDS ORDERED: Vancomycin 1.75 GM in Sodium Chloride 0.9% 500 ML IV SCH (18:00)
[2020-02-14] MEDS ORDERED: Iopamidol 755 MG/ML 200 ML Multipack Bottle IVPUSH ONE (18:04)
--- NOTE | 2020-02-14 18:43 | EDM.PDOC ---
<Curt Manuel - Last Filed: 02/15/20 01:42> ED HPI GENERAL MEDICAL PROBLEM - General Chief Complaint: General Stated Complaint: INFECTION Time Seen by Provider: 02/14/20 15:37 - Related Data Allergies Allergy/AdvReac Type Severity Reaction Status Date / Time No Known Allergies Allergy Verified 02/15/20 00:19 Home Meds: Home Meds Acetaminophen [Tylenol Extra Strength] 800 mg PO Q6H PRN 09/06/17 [History] Hydrocodone/Acetaminophen [Hydrocodone-Acetamin 5-325 mg] 1 - 2 tab PO Q6H PRN 02/10/20 [History] ED ROS GENERAL - Review of Systems Review Of Systems: Comprehensive ROS is negative, except as noted in HPI. ED EXAM, GENERAL - Physical Exam Exam: See Below Course - Re-Assessments/Exams Free Text/Narrative Re-Assessment/Exam: 02/14/20 19:07 Patient care [id number] from Dr. Tabor pending CT A/P read and general surgery consultation for concern for necrotizing fascitis. See his note for full H&P Free Text/Narrative Re-Assessment/Exam: 02/15/20 01:43 Dr. Barton has admitted patient for surgical exploration and management Departure - Departure Time of Disposition: 21:00 Disposition: Admitted As Inpatient 68 Condition: Good Clinical Impression: Abdominal infection - Discharge Information <Sha Tabor - Last Filed: 02/15/20 07:58> ED HPI GENERAL MEDICAL PROBLEM - General Source of Information: Reports: Patient, Old Records History Limitations: Reports: No Limitations - History of Present Illness INITIAL COMMENTS - FREE TEXT/NARRATIVE: 29-year-old female with a past medical history of recent laparoscopic bilateral salpingectomy and uterine ablation (postop day #9) presenting with abdominal pain. She was seen by myself on 02/10/2020 and there was concern for mild abdominal wall cellulitis around the umbilical incision site. At that point we had discussed with the on-call HANDLE AND VENT MACHINE OPERATOR and the patient was discharged with oral antibiotics and close clinic follow-up. She was seen by her HANDLE AND VENT MACHINE OPERATOR and was admitted to the hospital overnight on 02/12/2020 to 02/13/2020. She underwent operative evacuation of a hematoma which was noted to have foul-smelling sandhu- colored discharge. The patient was monitored overnight in the hospital and received IV levofloxacin. Cultures were sent from the incision site which cu rrently are growing many gram-positive cocci in pairs and moderate gram-negative rods. The patient was discharged home yesterday evening on oral levofloxacin. Today she presents back to the emergency department complaining of severe, worsening periumbilical pain along with spreading erythema. She did contact her HANDLE AND VENT MACHINE OPERATOR surgeon Dr. Son who evaluated her and was concerned about possible necrotizing soft tissue infection, so the patient was directed to come to the emergency department. Here in the ER, she complains of worsening pain. She denies any fever, chills, vomiting, or diarrhea. She has been taking Purdy and ibuprofen at home without relief, last dose about 2 hours ago. ROS: A 10-point review of systems was negative, except as noted in the HPI (or in the ROS section of this note). Past medical history: Reviewed, no additional pertinent history. Surgical history: Reviewed in system, no additional pertinent history. Social history: Reviewed in system, no additional pertinent history. Family history: Reviewed in system, no additional pertinent history. PHYSICAL EXAM Vital signs reviewed. Nursing notes reviewed. Constitutional: Awake, alert, appears very uncomfortable. Head: Normocephalic, atraumatic. Eyes: EOMI, conjunctiva normal, no discharge, no scleral icterus. Ears, Nose, Throat: External ears and nose normal, moist oral mucosa. Cardiovascular: 2+ radial pulse, capillary refill less than 2 seconds. Pulmonary: normal work of breathing, no accessory muscle use. Abdomen/GI: Obese, surgical incision to the umbilicus with dressings in place. There is sandhu-colored discharge noted on the dressings. A large area of erythema surrounds the umbilicus. This area of erythema is significantly increased from when I last saw the patient in the emergency department several days ago. Musculoskeletal: No deformities. Integumentary: Appropriate color for ethnicity, warm, dry, no pallor or jaundice, no rash. Neurologic: Alert, answering questions appropriately, normal speech, no facial droop, moving all extremities well. Psychiatric: Appropriate mood and affect, normal thought process. post-op site Pain Score (Numeric/FACES): 8 Past Medical History HEENT History: Reports: None Cardiovascular History: Reports: None Respiratory History: Reports: None Gastrointestinal History: Reports: GERD, Other (See Below) Other Gastrointestinal History: heartburn with Genitourinary History: Reports: None HANDLE AND VENT MACHINE OPERATOR History: Reports: Other HANDLE AND VENT MACHINE OPERATOR History: c section Musculoskeletal History: Reports: None Neurological History: Reports: None Psychiatric History: Reports: None Endocrine/Metabolic History: Reports: Obesity/BMI 30+ Hematologic History: Reports: None Immunologic History: Reports: None Oncologic (Cancer) History: Reports: None Dermatologic History: Reports: None - Infectious Disease History Infectious Disease History: Reports: Chicken Pox, Shingles - Past Surgical History Head Surgeries/Procedures: Reports: None GI Surgical History: Reports: Appendectomy Female Surgical History: Reports: Section, D&C, Other (See Below) Other Female Surgeries/Procedures: Saplingoectomy, Ablation Social & Family History - Family History Family Medical History: Noncontributory - Tobacco Use Smoking Status *Q: Never Smoker Second Hand Smoke Exposure: No - Caffeine Use Caffeine Use: Reports: None - Recreational Drug Use Recreational Drug Use: No ED ROS GENERAL - Review of Systems Review Of Systems: See Below ED EXAM, GENERAL - Physical Exam Exam: See Below Course - Vital Signs Text/Narrative:: Differential diagnosis includes but is not limited to: Abscess, cellulitis, necrotizing soft tissue infection, sepsis, severe sepsis, intra-abdominal infe ction, bowel obstruction, ileus, etc. IV access established and labs were sent off. Patient was given IV hydromorphone for pain x2 along with IV lactated Ringer's bolus. Given IV vancomycin and Zosyn. Blood cultures sent prior to antibiotic administration. CBC shows leukocytosis with a left shift. Normal lactate and INR. Electrolytes reassuring, creatinine is stably elevated. Troponin negative. CRP is elevated at 20.10. Lipase is negative. We did obtain a CT scan of the abdomen/pelvis with contrast which is concerning for persistent periumbilical cellulitis. I am also concerned by the presence of gas in the adjacent skin which is not confluent with the hematoma evacuation site. There is some concern for necrotizing soft tissue infection so I immediately paged the general surgeon on- call Dr. Ron Barton. Patient remained in the ER for the end of my shift. Signed out in person to Dr. Manuel awaiting general surgery recommendations, anticipate admission the hospital for treatment of sepsis due to cellulitis. Last Recorded V/S: Last Vital Signs Temp 36.2 C 02/15/20 04:19 Pulse 85 02/15/20 04:19 Resp 17 02/15/20 04:19 BP 112/68 02/15/20 04:19 Pulse Ox 97 02/15/20 04:19 - Orders/Labs/Meds Orders: Active Orders 24 hr Category Date Time Status Cardiac Monitoring [RC] CONTINUOUS Care 02/14/20 16:01 Active EKG Documentation Completion [RC] STAT Care 02/14/20 16:00 Active NPO Now [Nothing per Oral Now Diet] [DIET] Diet 02/14/20 Dinner Active CULTURE BLOOD [BC] Stat Lab 02/14/20 15:57 Received CULTURE BLOOD [BC] Stat Lab 02/14/20 16:52 Received VANCOMYCIN TROUGH [CHEM] Timed Lab 02/18/20 17:00 Ordered Sodium Chloride 0.9% [Saline Flush] Med 02/14/20 16:00 Active 10 ml FLUSH ASDIRECTED PRN Sodium Chloride 0.9% [Saline Flush] Med 02/14/20 16:00 Active 2.5 ml FLUSH ASDIRECTED PRN Vancomycin 1.75 gm Med 02/14/20 18:00 Active Sodium Chloride 0.9% [Normal Saline] 500 ml IV Q24H Blood Culture x2 Reflex Set [OM.PC] Stat Oth 02/14/20 16:00 Ordered Saline Lock Insert [OM.PC] Stat Oth 02/14/20 16:00 Ordered Medication Orders Docusate Sodium (Colace) 100 mg PO DAILY VALENCIA Hydromorphone HCl (Dilaudid) 2 mg PO Q4H PRN PRN Reason: Breakthrough Pain Last Admin: 02/15/20 04:01 Dose: 2 mg Documented by: Admin: 02/15/20 00:01 Dose: 2 mg Documented by: LESIA Vancomycin HCl 1.75 gm/ Sodium (Chloride) 500 mls @ 333.333 mls/hr IV Q24H VALENCIA Last Admin: 02/14/20 19:12 Dose: 333.333 mls/hr Documented by: DILMA Lactated Ringer's (Ringers, Lactated) 1,000 mls @ 75 mls/hr IV ASDIRECTED VALENCIA Last Admin: 02/15/20 01:50 Dose: 75 mls/hr Documented by: LESIA Piperacillin Sod/Tazobactam (Sod 3.375 gm/ Sodium Chloride) 50 mls @ 100 mls/hr IV Q8H VALENCIA Last Admin: 02/15/20 06:23 Dose: 100 mls/hr Documented by: Infusion: 02/15/20 00:25 Dose: 100 mls/hr Documented by: Admin: 02/14/20 23:55 Dose: 100 mls/hr Documented by: LESIA Lorazepam (Ativan) 0.5 mg PO Q12H PRN PRN Reason: Anxiety Last Admin: 02/15/20 07:20 Dose: 0.5 mg Documented by: LESIA Morphine Sulfate (Morphine) 3 mg IVPUSH Q4H PRN PRN Reason: Pain Last Admin: 02/15/20 06:21 Dose: 3 mg Documented by: LESIA Ondansetron HCl (Zofran) 4 mg IVPUSH Q8H PRN PRN Reason: Nausea/Vomiting Sodium Chloride (Saline Flush) 10 ml FLUSH ASDIRECTED PRN PRN Reason: Keep Vein Open Last Admin: 02/14/20 16:41 Dose: 10 ml Documented by: DILMA Sodium Chloride (Saline Flush) 2.5 ml FLUSH ASDIRECTED PRN PRN Reason: Keep Vein Open Last Admin: 02/14/20 16:41 Dose: 2.5 ml Documented by: DILMA Labs: Laboratory Tests 02/14/20 02/14/20 02/14/20 Range/Units 15:57 15:57 15:57 WBC 12.97 H (4.0-11.0) K/uL RBC 4.42 (4.30-5.90) M/uL Hgb 11.6 L (12.0-16.0) g/dL Hct 36.7 (36.0-46.0) % MCV 83.0 (80.0-98.0) fL MCH 26.2 L (27.0-32.0) pg MCHC 31.6 (31.0-37.0) g/dL RDW Std Deviation 45.6 (28.0-62.0) fl RDW Coeff of Kalie 15 (11.0-15.0) % Plt Count 393 (150-400) K/uL MPV 11.10 (7.40-12.00) fL Neut % (Auto) 73.0 (48.0-80.0) % Lymph % (Auto) 19.6 (16.0-40.0) % [place] % (Auto) 6.6 (0.0-15.0) % Eos % (Auto) 0.6 (0.0-7.0) % Baso % (Auto) 0.2 (0.0-1.5) % Neut # (Auto) 9.5 H (1.4-5.7) K/uL Lymph # (Auto) 2.5 H (0.6-2.4) K/uL [place] # (Auto) 0.9 H (0.0-0.8) K/uL Eos # (Auto) 0.1 (0.0-0.7) K/uL Baso # (Auto) 0.0 (0.0-0.1) K/uL Nucleated RBC % 0.0 /100WBC Nucleated RBCs # 0 K/uL INR 1.01 Lactate 1.7 (0.20-2.00) mmol/L Sodium (136-145) mmol/L Potassium (3.5-5.1) mmol/L Chloride (98-107) mmol/L Carbon Dioxide (21.0-32.0) mmol/L BUN (7.0-18.0) mg/dL Creatinine (0.6-1.0) mg/dL Est Cr Clr Drug Dosing mL/min Estimated GFR (MDRD) ml/min Glucose (74-106) mg/dL Calcium (8.5-10.1) mg/dL Total Bilirubin (0.2-1.0) mg/dL AST (15-37) IU/L ALT (14-63) IU/L Alkaline Phosphatase (46-116) U/L Troponin I (0.000-0.056) ng/mL C-Reactive Protein (0.00-0.90) mg/dL Total Protein (6.4-8.2) g/dL Albumin (3.4-5.0) g/dL Globulin (2.6-4.0) g/dL Albumin/Globulin Ratio (0.9-1.6) Lipase (73-393) U/L Vancomycin Trough (5.0-10.0) ug/mL COVID-19 (YESSI) (NEGATIVE) 02/14/20 02/14/20 02/14/20 Range/Units 15:57 15:57 15:57 WBC (4.0-11.0) K/uL RBC (4.30-5.90) M/uL Hgb (12.0-16.0) g/dL Hct (36.0-46.0) % MCV (80.0-98.0) fL MCH (27.0-32.0) pg MCHC (31.0-37.0) g/dL RDW Std Deviation (28.0-62.0) fl RDW Coeff of Kalie (11.0-15.0) % Plt Count (150-400) K/uL MPV (7.40-12.00) fL Neut % (Auto) (48.0-80.0) % Lymph % (Auto) (16.0-40.0) % [place] % (Auto) (0.0-15.0) % Eos % (Auto) (0.0-7.0) % Baso % (Auto) (0.0-1.5) % Neut # (Auto) (1.4-5.7) K/uL Lymph # (Auto) (0.6-2.4) K/uL [place] # (Auto) (0.0-0.8) K/uL Eos # (Auto) (0.0-0.7) K/uL Baso # (Auto) (0.0-0.1) K/uL Nucleated RBC % /100WBC Nucleated RBCs # K/uL INR Lactate (0.20-2.00) mmol/L Sodium 140 (136-145) mmol/L Potassium 3.6 (3.5-5.1) mmol/L Chloride 105 (98-107) mmol/L Carbon Dioxide 25.9 (21.0-32.0) mmol/L BUN 15 (7.0-18.0) mg/dL Creatinine 1.2 H (0.6-1.0) mg/dL Est Cr Clr Drug Dosing 71.04 mL/min Estimated GFR (MDRD) 53.9 ml/min Glucose 85 (74-106) mg/dL Calcium 8.8 (8.5-10.1) mg/dL Total Bilirubin 0.1 L (0.2-1.0) mg/dL AST 21 (15-37) IU/L ALT 30 (14-63) IU/L Alkaline Phosphatase 76 (46-116) U/L Troponin I < 0.050 (0.000-0.056) ng/mL C-Reactive Protein 20.10 H (0.00-0.90) mg/dL Total Protein 8.2 (6.4-8.2) g/dL Albumin 2.9 L (3.4-5.0) g/dL Globulin 5.3 H (2.6-4.0) g/dL Albumin/Globulin Ratio 0.6 L (0.9-1.6) Lipase 102 (73-393) U/L Vancomycin Trough 0.0 L (5.0-10.0) ug/mL COVID-19 (YESSI) (NEGATIVE) 02/14/20 Range/Units 19:39 WBC (4.0-11.0) K/uL RBC (4.30-5.90) M/uL Hgb (12.0-16.0) g/dL Hct (36.0-46.0) % MCV (80.0-98.0) fL MCH (27.0-32.0) pg MCHC (31.0-37.0) g/dL RDW Std Deviation (28.0-62.0) fl RDW Coeff of Kalie (11.0-15.0) % Plt Count (150-400) K/uL MPV (7.40-12.00) fL Neut % (Auto) (48.0-80.0) % Lymph % (Auto) (16.0-40.0) % [place] % (Auto) (0.0-15.0) % Eos % (Auto) (0.0-7.0) % Baso % (Auto) (0.0-1.5) % Neut # (Auto) (1.4-5.7) K/uL Lymph # (Auto) (0.6-2.4) K/uL [place] # (Auto) (0.0-0.8) K/uL Eos # (Auto) (0.0-0.7) K/uL Baso # (Auto) (0.0-0.1) K/uL Nucleated RBC % /100WBC Nucleated RBCs # K/uL INR Lactate (0.20-2.00) mmol/L Sodium (136-145) mmol/L Potassium (3.5-5.1) mmol/L Chloride (98-107) mmol/L Carbon Dioxide (21.0-32.0) mmol/L BUN (7.0-18.0) mg/dL Creatinine (0.6-1.0) mg/dL Est Cr Clr Drug Dosing mL/min Estimated GFR (MDRD) ml/min Glucose (74-106) mg/dL Calcium (8.5-10.1) mg/dL Total Bilirubin (0.2-1.0) mg/dL AST (15-37) IU/L ALT (14-63) IU/L Alkaline Phosphatase (46-116) U/L Troponin I (0.000-0.056) ng/mL C-Reactive Protein (0.00-0.90) mg/dL Total Protein (6.4-8.2) g/dL Albumin (3.4-5.0) g/dL Globulin (2.6-4.0) g/dL Albumin/Globulin Ratio (0.9-1.6) Lipase (73-393) U/L Vancomycin Trough (5.0-10.0) ug/mL COVID-19 (YESSI) NEGATIVE (NEGATIVE) Meds: Medications Generic Name Dose Route Start Last Admin Trade Name Freq PRN Reason Stop Dose Admin Docusate Sodium 100 mg 02/15/20 09:00 Colace PO DAILY VALENCIA Hydromorphone HCl 2 mg 02/14/20 22:21 02/15/20 04:01 Dilaudid PO 2 mg Q4H PRN Administration Breakthrough Pain Vancomycin HCl 1.75 gm/ Sodium 500 mls @ 333.333 mls/hr 02/14/20 18:00 02/14/20 19:12 Chloride IV 333.333 mls/hr Q24H VALENCIA Administration Lactated Ringer's 1,000 mls @ 75 mls/hr 02/14/20 22:30 02/15/20 01:50 Ringers, Lactated IV 75 mls/hr ASDIRECTED VALENCIA Administration Piperacillin Sod/Tazobactam 50 mls @ 100 mls/hr 02/14/20 23:00 02/15/20 06:23 Sod 3.375 gm/ Sodium Chloride IV 100 mls/hr Q8H VALENCIA Administration Lorazepam 0.5 mg 02/15/20 06:13 02/15/20 07:20 Ativan PO 0.5 mg Q12H PRN Administration Anxiety Morphine Sulfate 3 mg 02/15/20 06:09 02/15/20 06:21 Morphine IVPUSH 3 mg Q4H PRN Administration Pain Ondansetron HCl 4 mg 02/14/20 23:00 Zofran IVPUSH Q8H PRN Nausea/Vomiting Sodium Chloride 10 ml 02/14/20 16:00 02/14/20 16:41 Saline Flush FLUSH 10 ml ASDIRECTED PRN Administration Keep Vein Open Sodium Chloride 2.5 ml 02/14/20 16:00 02/14/20 16:41 Saline Flush FLUSH 2.5 ml ASDIRECTED PRN Administration Keep Vein Open Discontinued Medications Generic Name Dose Route Start Last Admin Trade Name Freq PRN Reason Stop Dose Admin Bupivacaine HCl/Epinephrine Bitart Confirm 02/14/20 20:36 Marcaine 0.25%/Epinephrine 1:200,000 Administered 02/14/20 20:37 Dose 10 ml .ROUTE .STK-MED ONE Cefazolin Sodium Confirm 02/14/20 20:35 Ancef Administered 02/14/20 20:36 Dose 1 gm .ROUTE .STK-MED ONE Fentanyl Confirm 02/14/20 20:38 Sublimaze Administered 02/14/20 20:39 Dose 100 mcg .ROUTE .STK-MED ONE Fentanyl Confirm 02/14/20 22:11 Sublimaze Administered 02/14/20 22:12 Dose 100 mcg .ROUTE .STK-MED ONE Hydromorphone HCl 1 mg 02/14/20 16:00 02/14/20 16:03 Dilaudid IVPUSH 02/14/20 16:01 1 mg ONETIME ONE Administration Hydromorphone HCl 1 mg 02/14/20 18:27 02/14/20 18:31 Dilaudid IVPUSH 02/14/20 18:28 1 mg ONETIME ONE Administration Hydromorphone HCl Confirm 02/14/20 20:37 Dilaudid Administered 02/14/20 20:38 Dose 2 mg .ROUTE .STK-MED ONE Hydromorphone HCl Confirm 02/14/20 22:16 02/14/20 23:40 Dilaudid Administered 02/14/20 22:17 Not Given Dose 2 mg .ROUTE .STK-MED ONE Hydromorphone HCl 1 mg 02/14/20 22:22 02/14/20 22:22 Dilaudid IV 02/14/20 22:23 1 mg ONETIME ONE Administration Lactated Ringer's 1,000 mls @ 999 mls/hr 02/14/20 16:15 02/14/20 16:05 Ringers, Lactated IV 999 mls/hr ASDIRECTED VALENCIA Administration Piperacillin Sod/Tazobactam 100 mls @ 100 mls/hr 02/14/20 17:42 02/14/20 18:31 Sod 4.5 gm/ Sodium Chloride IV 02/14/20 18:41 100 mls/hr ONETIME ONE Administration Lactated Ringer's 1,000 mls @ 125 mls/hr 02/14/20 20:30 Ringers, Lactated IV ASDIRECTED VALENCIA Clindamycin Phosphate 600 mg/ 50 mls @ 100 mls/hr 02/14/20 20:19 02/14/20 23:36 Premix IV 02/14/20 20:48 Not Given ONETIME ONE Clindamycin Phosphate Confirm 02/14/20 21:22 02/14/20 23:39 Cleocin In D5w Administered 02/14/20 21:23 Not Given Dose 50 mls @ as directed .ROUTE .STK-MED ONE Iopamidol 100 ml 02/14/20 18:04 02/14/20 18:05 Isovue Multipack-370 (76%) IVPUSH 02/14/20 18:05 100 ml ONETIME ONE Administration Ketamine HCl Confirm 02/14/20 20:38 Ketalar Administered 02/14/20 20:39 Dose 500 mg .ROUTE .STK-MED ONE Midazolam HCl Confirm 02/14/20 20:40 Versed 1 Mg/Ml Administered 08/08/20 20:41 Dose 2 mg .ROUTE .STK-MED ONE Morphine Sulfate 3 mg 02/14/20 23:33 02/14/20 23:50 Morphine IVPUSH 3 mg Q12H PRN Administration Breakthrough Pain Propofol Confirm 02/14/20 20:37 Diprivan 20 Ml Administered 02/14/20 20:38 Dose 600 mg .ROUTE .STK-MED ONE Vancomycin HCl 1 dose 02/14/20 17:42 Pharmacy To Dose - Vancomycin .XX 02/14/20 17:43 ONETIME ONE Sepsis Event Note (ED) - Evaluation Sepsis Screening Result: No Definite Risk - My Orders Last 24 Hours: My Active Orders 02/14/20 15:57 CULTURE BLOOD [BC] Stat 02/14/20 16:00 EKG Documentation Completion [RC] STAT NPO Now [Nothing per Oral Now Diet] [DIET] Sodium Chloride 0.9% [Saline Flush] 10 ml FLUSH ASDIRECTED PRN Sodium Chloride 0.9% [Saline Flush] 2.5 ml FLUSH ASDIRECTED PRN Blood Culture x2 Reflex Set [OM.PC] Stat Saline Lock Insert [OM.PC] Stat 02/14/20 16:01 Cardiac Monitoring [RC] CONTINUOUS 02/14/20 16:52 CULTURE BLOOD [BC] Stat 02/14/20 18:00 Vancomycin 1.75 gm Sodium Chloride 0.9% [Normal Saline] 500 ml IV Q24H - Assessment/Plan Last 24 Hours: My Active Orders 02/14/20 15:57 CULTURE BLOOD [BC] Stat 02/14/20 16:00 EKG Documentation Completion [RC] STAT NPO Now [Nothing per Oral Now Diet] [DIET] Sodium Chloride 0.9% [Saline Flush] 10 ml FLUSH ASDIRECTED PRN Sodium Chloride 0.9% [Saline Flush] 2.5 ml FLUSH ASDIRECTED PRN Blood Culture x2 Reflex Set [OM.PC] Stat Saline Lock Insert [OM.PC] Stat 02/14/20 16:01 Cardiac Monitoring [RC] CONTINUOUS 02/14/20 16:52 CULTURE BLOOD [BC] Stat 02/14/20 18:00 Vancomycin 1.75 gm Sodium Chloride 0.9% [Normal Saline] 500 ml IV Q24H
--- NOTE | 2020-02-14 19:01 | CT ---
INDICATION: Postoperative abdominal pain. Salpingectomy. TECHNIQUE: Contrast-enhanced CT of the abdomen and pelvis. 100 cc nonionic Isovue-370 administered. COMPARISON: February 10, 2020. FINDINGS: There is persistent although slightly less air within the intraperitoneal space and retroperitoneal space and the space of Retzius related to recent surgery. The air within the endocervical canal and endometrium has resolved. The amount of air and fluid in the subcutaneous soft tissues deep to the umbilicus and anterior to the abdominal wall is also less evident but not absent. Please see image 102 series 201 in relationship to the prior CT image 102 series 201. There are no drainable fluid collections within the abdomen or pelvis. The liver, spleen, pancreas, gallbladder, adrenal glands, kidneys, abdominal aorta, iliac arteries, and inferior vena cava are within normal limits. A tiny nonobstructing stone in the right mid kidney is evident on image 67 series 201 unchanged. No bowel obstruction. Postsurgical change right lower quadrant likely from an appendectomy. The urinary bladder is unremarkable. Left ovarian cyst measuring up to 2.4 cm unchanged. Clear included lung bases. IMPRESSION: 1. Small amount of free air scattered throughout the abdomen and pelvis both intraperitoneal and retroperitoneally as well as within the space of Retzius. The amount of air has decrease compared to the prior study. The air in fluid within the subcutaneous soft tissues deep to the umbilicus there has also decreased. 2. No drainable fluid collection. No bowel obstruction. No renal obstruction. Tiny nonobstructing right renal stone seen previously. Clear lungs. Please note that all CT scans at this facility use dose modulation, iterative reconstruction, and/or weight-based dosing when appropriate to reduce radiation dose to as low as reasonably achievable. Dictated by Elver Pineda MD @ Feb 14 2020 6:44PM Signed by Dr. Elver Pineda @ Feb 14 2020 7:00PM
[2020-02-14] MEDS ORDERED: Clindamycin Phosphate in D5W 600 MG in Premix Bag 50 BAG IV ONE ×2 (20:19)
--- NOTE | 2020-02-14 20:31 | PCM.SN.2 ---
- Free Text/Narrative Note: pt seen, chart reviewed; consult dictated; drsg looked soapy with minimal smell, and pt has v low pain tolerance, will take to or for wound exploration, drainage, and placement of a wound vac; rb dw pt re bleeding/more infection/postop course; pt concurred and proceed; [id number]
--- NOTE | 2020-02-14 20:34 | PCM.PREANE ---
Preanesthetic Assessment - Procedure Proposed Procedure: Surgical wound I&D, wound vac. placement - Anesthesia/Transfusion/Family Hx Anesthesia History: Prior Anesthesia Without Reaction (C. section x 2, postop. day #9 from lap salpingectomy, postop. day #2 from hematoma drainage/washout. Denies anesthesia complications.) Other Type of Anesthesia Reaction Comment: Difficuly in placement of an Epidural for L&D Family History of Anesthesia Reaction: No Transfusion History: No Prior Transfusion(s) - Review of Systems General: No Symptoms, Weakness, Fatigue, Appetite (Reports loss of apetite acutely due to pain today and yesterday.), Other (Pt having incisional pain, especially with movement. Has felt generally tired and week for four days.) Pulmonary: No Symptoms Cardiovascular: No Symptoms Gastrointestinal: No Symptoms Neurological: No Symptoms Other: Reports: None (Obesity) - Physical Assessment NPO Status Date: 02/14/20 NPO Status Time: 15:30 (1530 for clear liquids, 2030 8/7 for solids.) Vital Signs: Last Vital Signs Temp 36.1 C 02/14/20 15:42 Pulse 100 02/14/20 19:30 Resp 16 02/14/20 18:40 BP 128/77 02/14/20 19:30 Pulse Ox 94 L 02/14/20 19:30 Height: 1.73 m Weight: 113.398 kg ASA Class: 2E Mental Status: Alert & Oriented x3 Airway Class: Mallampati = 2 Dentition: Reports: Normal Dentition Thyro-Mental Finger Breadths: 3 Mouth Opening Finger Breadths: 3 ROM/Head Extension: Full Lungs: Normal Respiratory Effort Cardiovascular: Regular Rate, Regular Rhythm - Lab Values: Laboratory Last Values WBC 12.97 K/uL (4.0-11.0) H 02/14/20 15:57 RBC 4.42 M/uL (4.30-5.90) 02/14/20 15:57 Hgb 11.6 g/dL (12.0-16.0) L 02/14/20 15:57 Hct 36.7 % (36.0-46.0) 02/14/20 15:57 MCV 83.0 fL (80.0-98.0) 02/14/20 15:57 MCH 26.2 pg (27.0-32.0) L 02/14/20 15:57 MCHC 31.6 g/dL (31.0-37.0) 02/14/20 15:57 RDW Std Deviation 45.6 fl (28.0-62.0) 02/14/20 15:57 RDW Coeff of Kalie 15 % (11.0-15.0) 02/14/20 15:57 Plt Count 393 K/uL (150-400) 02/14/20 15:57 MPV 11.10 fL (7.40-12.00) 02/14/20 15:57 Neut % (Auto) 73.0 % (48.0-80.0) 02/14/20 15:57 Lymph % (Auto) 19.6 % (16.0-40.0) 02/14/20 15:57 [place] % (Auto) 6.6 % (0.0-15.0) 02/14/20 15:57 Eos % (Auto) 0.6 % (0.0-7.0) 02/14/20 15:57 Baso % (Auto) 0.2 % (0.0-1.5) 02/14/20 15:57 Neut # (Auto) 9.5 K/uL (1.4-5.7) H 02/14/20 15:57 Lymph # (Auto) 2.5 K/uL (0.6-2.4) H 02/14/20 15:57 [place] # (Auto) 0.9 K/uL (0.0-0.8) H 02/14/20 15:57 Eos # (Auto) 0.1 K/uL (0.0-0.7) 02/14/20 15:57 Baso # (Auto) 0.0 K/uL (0.0-0.1) 02/14/20 15:57 Nucleated RBC % 0.0 /100WBC 02/14/20 15:57 Nucleated RBCs # 0 K/uL 02/14/20 15:57 INR 1.01 02/14/20 15:57 Lactate 1.7 mmol/L (0.20-2.00) 02/14/20 15:57 Sodium 140 mmol/L (136-145) 02/14/20 15:57 Potassium 3.6 mmol/L (3.5-5.1) 02/14/20 15:57 Chloride 105 mmol/L (98-107) 02/14/20 15:57 Carbon Dioxide 25.9 mmol/L (21.0-32.0) 02/14/20 15:57 BUN 15 mg/dL (7.0-18.0) 02/14/20 15:57 Creatinine 1.2 mg/dL (0.6-1.0) H 02/14/20 15:57 Est Cr Clr Drug Dosing 71.04 mL/min 02/14/20 15:57 Estimated GFR (MDRD) 53.9 ml/min 02/14/20 15:57 Glucose 85 mg/dL (74-106) 02/14/20 15:57 Calcium 8.8 mg/dL (8.5-10.1) 02/14/20 15:57 Total Bilirubin 0.1 mg/dL (0.2-1.0) L 02/14/20 15:57 AST 21 IU/L (15-37) 02/14/20 15:57 ALT 30 IU/L (14-63) 02/14/20 15:57 Alkaline Phosphatase 76 U/L (46-116) 02/14/20 15:57 Troponin I < 0.050 ng/mL (0.000-0.056) 02/14/20 15:57 C-Reactive Protein 20.10 mg/dL (0.00-0.90) H 02/14/20 15:57 Total Protein 8.2 g/dL (6.4-8.2) 02/14/20 15:57 Albumin 2.9 g/dL (3.4-5.0) L 02/14/20 15:57 Globulin 5.3 g/dL (2.6-4.0) H 02/14/20 15:57 Albumin/Globulin Ratio 0.6 (0.9-1.6) L 02/14/20 15:57 Lipase 102 U/L (73-393) 02/14/20 15:57 Vancomycin Trough 0.0 ug/mL (5.0-10.0) L 02/14/20 15:57 COVID-19 (YESSI) NEGATIVE (NEGATIVE) 02/14/20 19:39 - Allergies Allergies/Adverse Reactions: Allergies Allergy/AdvReac Type Severity Reaction Status Date / Time No Known Allergies Allergy Verified 02/14/20 15:55 - Acknowledgements Anesthesia Type Planned: MAC Pt an Appropriate Candidate for the Planned Anesthesia: Yes Alternatives and Risks of Anesthesia Discussed w Pt/Guardian: Yes Pt/Guardian Understands and Agrees with Anesthesia Plan: Yes Additional Comments: PT educated regarding anesthesia risks, benefits, and alternatives. Plan for MAC, with possibility of GA. Pt educated on both. All questions answered and concerns addressed. PreAnesthesia Questionnaire HEENT History: Reports: None Cardiovascular History: Reports: None Respiratory History: Reports: None Gastrointestinal History: Reports: GERD, Other (See Below) Other Gastrointestinal History: heartburn with Genitourinary History: Reports: None [employer] History: Reports: Other OB/BYN History: c section Musculoskeletal History: Reports: None Neurological History: Reports: None Psychiatric History: Reports: None Endocrine/Metabolic History: Reports: Obesity/BMI 30+ Hematologic History: Reports: None Immunologic History: Reports: None Oncologic (Cancer) History: Reports: None Dermatologic History: Reports: None - Infectious Disease History Infectious Disease History: Reports: Chicken Pox, Shingles - Past Surgical History Head Surgeries/Procedures: Reports: None GI Surgical History: Reports: Appendectomy Female Surgical History: Reports: Section, D&C, Other (See Below) Other Female Surgeries/Procedures: Saplingoectomy, Ablation - SUBSTANCE USE Smoking Status *Q: Never Smoker Second Hand Smoke Exposure: No Recreational Drug Use History: No - HOME MEDS Home Medications: Home Meds Acetaminophen [Tylenol Extra Strength] 800 mg PO Q6H PRN 09/06/17 [History] Hydrocodone/Acetaminophen [Hydrocodone-Acetamin 5-325 mg] 1 - 2 tab PO Q6H PRN 02/10/20 [History] - CURRENT (IN HOUSE) MEDS Current Meds: Current Medications Lactated Ringer's (Ringers, Lactated) 1,000 mls @ 999 mls/hr IV ASDIRECTED [facility] Last Admin: 02/14/20 16:05 Dose: 999 mls/hr Documented by: Vancomycin HCl 1.75 gm/ Sodium (Chloride) 500 mls @ 333.333 mls/hr IV Q24H [facility] Last Admin: 02/14/20 19:12 Dose: 333.333 mls/hr Documented by: Lactated Ringer's (Ringers, Lactated) 1,000 mls @ 125 mls/hr IV ASDIRECTED [facility] Clindamycin Phosphate 600 mg/ (Premix) 50 mls @ 100 mls/hr IV ONETIME ONE Stop: 02/14/20 20:48 Sodium Chloride (Saline Flush) 10 ml FLUSH ASDIRECTED PRN PRN Reason: Keep Vein Open Last Admin: 02/14/20 16:41 Dose: 10 ml Documented by: Sodium Chloride (Saline Flush) 2.5 ml FLUSH ASDIRECTED PRN PRN Reason: Keep Vein Open Last Admin: 02/14/20 16:41 Dose: 2.5 ml Documented by: Vancomycin HCl (Pharmacy To Dose - Vancomycin) 1 dose .XX ONETIME ONE Stop: 02/14/20 17:43 Discontinued Medications Hydromorphone HCl (Dilaudid) 1 mg IVPUSH ONETIME ONE Stop: 02/14/20 16:01 Last Admin: 02/14/20 16:03 Dose: 1 mg Documented by: Hydromorphone HCl (Dilaudid) 1 mg IVPUSH ONETIME ONE Stop: 02/14/20 18:28 Last Admin: 02/14/20 18:31 Dose: 1 mg Documented by: Piperacillin Sod/Tazobactam (Sod 4.5 gm/ Sodium Chloride) 100 mls @ 100 mls/hr IV ONETIME ONE Stop: 02/14/20 18:41 Last Admin: 02/14/20 18:31 Dose: 100 mls/hr Documented by: Iopamidol (Isovue Multipack-370 (76%)) 100 ml IVPUSH ONETIME ONE Stop: 02/14/20 18:05 Last Admin: 02/14/20 18:05 Dose: 100 ml Documented by:
[2020-02-14] MEDS ORDERED: ceFAZolin 1 GM Vial ONE (20:35)
[2020-02-14] MEDS ORDERED: Bupivacaine 0.25%/EPINEPHrine 1:200,000 10 ML SDV ONE (20:36)
[2020-02-14] MEDS ORDERED: HYDROmorphone 2 MG/ML Syringe ONE ×2 (20:37→22:16)
[2020-02-14] MEDS ORDERED: Propofol 200 MG/20 ML SDV ONE (20:37)
[2020-02-14] MEDS ORDERED: Ketamine 500 mg/10 ML MDV ONE (20:38)
[2020-02-14] MEDS ORDERED: fentaNYL 100 MCG/2 ML SDV ONE ×2 (20:38→22:11)
[2020-02-14] MEDS ORDERED: Midazolam 1 MG/ML 2 ML SDV ONE (20:40)
[2020-02-14] MEDS ORDERED: Clindamycin Phosphate in D5W 50 ML ONE (21:22)
--- NOTE | 2020-02-14 22:19 | PCM.OPNOTE ---
- General Post-Op/Procedure Note Date of Surgery/Procedure: 02/14/20 Findings: no elva purulent drainage, only serous sanginous drainage, presumably postop change; superficial skin edge was ulcerated, debried to health tissue; [id number] mm [id number], wound vac applied to 120 mm Hg pressure; [id number] Pre Op Diagnosis: wound drainge Post-Op Diagnosis: Same Anesthesia Technique: MAC Primary Surgeon: Ron Barton Pathology: gs,c+s, bx sent Complications: None Condition: Good
[2020-02-14] MEDS ORDERED: HYDROmorphone 1 MG/ML Syringe IV ONE (22:22)
--- NOTE | 2020-02-14 22:57 | PCM.POSTAN ---
POST ANESTHESIA ASSESSMENT - MENTAL STATUS Mental Status: Alert, Oriented - VITAL SIGNS Vital Signs: Last Vital Signs Temp 36.2 C 02/14/20 22:13 Pulse 65 02/14/20 22:50 Resp 15 02/14/20 22:50 BP 121/67 02/14/20 22:50 Pulse Ox 98 02/14/20 22:50 - RESPIRATORY Respiratory Status: Respiratory Rate WNL, Airway Patent, O2 Saturation Stable - CARDIOVASCULAR CV Status: Pulse Rate WNL, Blood Pressure Stable - GASTROINTESTINAL GI Status: No Symptoms - PAIN Pain Score: 3 (Reports pain of 3/10 at rest, 4-5 with movement. Satisfactory pain control per patient.) - POST OP HYDRATION Hydration Status: Adequate & Stable
[2020-02-14] MEDS ORDERED: Ondansetron 4 MG/2 ML SDV IVPUSH PRN (23:00)
[2020-02-14] MEDS ORDERED: Morphine 4 MG/ML Syringe IVPUSH PRN (23:33)
[2020-02-14] MEDS: Piperacillin/Tazobactam 3.375 GM in Sodium Chloride 0.9% 50 ML IV SCH (23:55)
[2020-02-15] MEDS: HYDROmorphone 2 MG Tab PO PRN ×5 (00:01→19:51)
[2020-02-15] MEDS: Lactated Ringers 1,000 ML IV SCH ×2 (01:50→18:33)
[2020-02-15] MEDS ORDERED: LORazepam 0.5 MG Tab PO PRN (06:13)
[2020-02-15] MEDS: Morphine 10 MG/ML Syringe IVPUSH PRN (06:21)
[2020-02-15] MEDS: Piperacillin/Tazobactam 3.375 GM in Sodium Chloride 0.9% 50 ML IV SCH ×3 (06:23→18:33)
[2020-02-15] MEDS: Docusate Sodium 100 MG Cap PO SCH (09:46)
[2020-02-15] MEDS: Morphine 4 MG/ML Syringe IVPUSH PRN ×2 (10:34→22:27)
--- NOTE | 2020-02-15 12:39 | PCM48HPAN ---
Post Anesthesia Note - EVALUATION WITHIN 48HRS OF ANESTHETIC Vital Signs in Normal Range: Yes Patient Participated in Evaluation: Yes Respiratory Function Stable: Yes Airway Patent: Yes Cardiovascular Function Stable: Yes Hydration Status Stable: Yes (Taking PO fluids well) Pain Control Satisfactory: Yes (Pain 5/10 and satisfactory control per pt. Sleeps intermittantly.) Nausea and Vomiting Control Satisfactory: Yes Mental Status Recovered: Yes (Flat affect, tearful, as per preop. Listened to concerns, encouraged. ) Vital Signs: Last Vital Signs Temp 36.2 C 02/15/20 04:19 Pulse 87 02/15/20 07:30 Resp 18 02/15/20 07:30 BP 115/64 02/15/20 07:30 Pulse Ox 96 02/15/20 07:30
--- NOTE | 2020-02-15 13:31 | PCM.SURGPN ---
- General Info Date of Service: 02/15/20 Pain Score: 8 - Review of Systems General: Reports: No Symptoms (kelly po) - Patient Data Vitals - Most Recent: Last Vital Signs Temp 97.2 F 02/15/20 04:19 Pulse 87 02/15/20 07:30 Resp 18 02/15/20 07:30 BP 115/64 02/15/20 07:30 Pulse Ox 96 02/15/20 07:30 Weight - Most Recent: 250 lb I&O - Last 24 Hours: Intake & Output 02/14/20 02/15/20 02/15/20 22:59 06:59 14:59 Intake Total 750 564 Output Total 0 Balance 750 564 Lab Results Last 24 Hrs: Laboratory Results - last 24 hr 02/14/20 02/14/20 02/14/20 Range/Units 15:57 15:57 15:57 WBC 12.97 H (4.0-11.0) K/uL RBC 4.42 (4.30-5.90) M/uL Hgb 11.6 L (12.0-16.0) g/dL Hct 36.7 (36.0-46.0) % MCV 83.0 (80.0-98.0) fL MCH 26.2 L (27.0-32.0) pg MCHC 31.6 (31.0-37.0) g/dL RDW Std Deviation 45.6 (28.0-62.0) fl RDW Coeff of Kalie 15 (11.0-15.0) % Plt Count 393 (150-400) K/uL MPV 11.10 (7.40-12.00) fL Neut % (Auto) 73.0 (48.0-80.0) % Lymph % (Auto) 19.6 (16.0-40.0) % [place] % (Auto) 6.6 (0.0-15.0) % Eos % (Auto) 0.6 (0.0-7.0) % Baso % (Auto) 0.2 (0.0-1.5) % Neut # (Auto) 9.5 H (1.4-5.7) K/uL Lymph # (Auto) 2.5 H (0.6-2.4) K/uL [place] # (Auto) 0.9 H (0.0-0.8) K/uL Eos # (Auto) 0.1 (0.0-0.7) K/uL Baso # (Auto) 0.0 (0.0-0.1) K/uL Nucleated RBC % 0.0 /100WBC Nucleated RBCs # 0 K/uL INR 1.01 Lactate 1.7 (0.20-2.00) mmol/L Sodium (136-145) mmol/L Potassium (3.5-5.1) mmol/L Chloride (98-107) mmol/L Carbon Dioxide (21.0-32.0) mmol/L BUN (7.0-18.0) mg/dL Creatinine (0.6-1.0) mg/dL Est Cr Clr Drug Dosing mL/min Estimated GFR (MDRD) ml/min Glucose (74-106) mg/dL Calcium (8.5-10.1) mg/dL Total Bilirubin (0.2-1.0) mg/dL AST (15-37) IU/L ALT (14-63) IU/L Alkaline Phosphatase (46-116) U/L Troponin I (0.000-0.056) ng/mL C-Reactive Protein (0.00-0.90) mg/dL Total Protein (6.4-8.2) g/dL Albumin (3.4-5.0) g/dL Globulin (2.6-4.0) g/dL Albumin/Globulin Ratio (0.9-1.6) Lipase (73-393) U/L Urine Color Urine Appearance Urine pH (5.0-8.0) Ur Specific [place] (1.001-1.035) Urine Protein (NEGATIVE) mg/dL Urine Glucose (UA) (NEGATIVE) mg/dL Urine Ketones (NEGATIVE) mg/dL Urine Occult Blood (NEGATIVE) Urine Nitrite (NEGATIVE) Urine Bilirubin (NEGATIVE) Urine Urobilinogen (<2.0) EU/dL Ur Leukocyte Esterase (NEGATIVE) Urine RBC (0-2/HPF) Urine WBC (0-5/HPF) Ur Epithelial Cells (NONE-FEW) Urine Bacteria (NEGATIVE) Urine HCG, Qual (NEGATIVE) Vancomycin Trough (5.0-10.0) ug/mL COVID-19 (YESSI) (NEGATIVE) 02/14/20 02/14/20 02/14/20 Range/Units 15:57 15:57 15:57 WBC (4.0-11.0) K/uL RBC (4.30-5.90) M/uL Hgb (12.0-16.0) g/dL Hct (36.0-46.0) % MCV (80.0-98.0) fL MCH (27.0-32.0) pg MCHC (31.0-37.0) g/dL RDW Std Deviation (28.0-62.0) fl RDW Coeff of Kalie (11.0-15.0) % Plt Count (150-400) K/uL MPV (7.40-12.00) fL Neut % (Auto) (48.0-80.0) % Lymph % (Auto) (16.0-40.0) % [place] % (Auto) (0.0-15.0) % Eos % (Auto) (0.0-7.0) % Baso % (Auto) (0.0-1.5) % Neut # (Auto) (1.4-5.7) K/uL Lymph # (Auto) (0.6-2.4) K/uL [place] # (Auto) (0.0-0.8) K/uL Eos # (Auto) (0.0-0.7) K/uL Baso # (Auto) (0.0-0.1) K/uL Nucleated RBC % /100WBC Nucleated RBCs # K/uL INR Lactate (0.20-2.00) mmol/L Sodium 140 (136-145) mmol/L Potassium 3.6 (3.5-5.1) mmol/L Chloride 105 (98-107) mmol/L Carbon Dioxide 25.9 (21.0-32.0) mmol/L BUN 15 (7.0-18.0) mg/dL Creatinine 1.2 H (0.6-1.0) mg/dL Est Cr Clr Drug Dosing 71.04 mL/min Estimated GFR (MDRD) 53.9 ml/min Glucose 85 (74-106) mg/dL Calcium 8.8 (8.5-10.1) mg/dL Total Bilirubin 0.1 L (0.2-1.0) mg/dL AST 21 (15-37) IU/L ALT 30 (14-63) IU/L Alkaline Phosphatase 76 (46-116) U/L Troponin I < 0.050 (0.000-0.056) ng/mL C-Reactive Protein 20.10 H (0.00-0.90) mg/dL Total Protein 8.2 (6.4-8.2) g/dL Albumin 2.9 L (3.4-5.0) g/dL Globulin 5.3 H (2.6-4.0) g/dL Albumin/Globulin Ratio 0.6 L (0.9-1.6) Lipase 102 (73-393) U/L Urine Color Urine Appearance Urine pH (5.0-8.0) Ur Specific [place] (1.001-1.035) Urine Protein (NEGATIVE) mg/dL Urine Glucose (UA) (NEGATIVE) mg/dL Urine Ketones (NEGATIVE) mg/dL Urine Occult Blood (NEGATIVE) Urine Nitrite (NEGATIVE) Urine Bilirubin (NEGATIVE) Urine Urobilinogen (<2.0) EU/dL Ur Leukocyte Esterase (NEGATIVE) Urine RBC (0-2/HPF) Urine WBC (0-5/HPF) Ur Epithelial Cells (NONE-FEW) Urine Bacteria (NEGATIVE) Urine HCG, Qual (NEGATIVE) Vancomycin Trough 0.0 L (5.0-10.0) ug/mL COVID-19 (YESSI) (NEGATIVE) 02/14/20 02/14/20 02/14/20 Range/Units 19:39 21:00 21:00 WBC (4.0-11.0) K/uL RBC (4.30-5.90) M/uL Hgb (12.0-16.0) g/dL Hct (36.0-46.0) % MCV (80.0-98.0) fL MCH (27.0-32.0) pg MCHC (31.0-37.0) g/dL RDW Std Deviation (28.0-62.0) fl RDW Coeff of Kalie (11.0-15.0) % Plt Count (150-400) K/uL MPV (7.40-12.00) fL Neut % (Auto) (48.0-80.0) % Lymph % (Auto) (16.0-40.0) % [place] % (Auto) (0.0-15.0) % Eos % (Auto) (0.0-7.0) % Baso % (Auto) (0.0-1.5) % Neut # (Auto) (1.4-5.7) K/uL Lymph # (Auto) (0.6-2.4) K/uL [place] # (Auto) (0.0-0.8) K/uL Eos # (Auto) (0.0-0.7) K/uL Baso # (Auto) (0.0-0.1) K/uL Nucleated RBC % /100WBC Nucleated RBCs # K/uL INR Lactate (0.20-2.00) mmol/L Sodium (136-145) mmol/L Potassium (3.5-5.1) mmol/L Chloride (98-107) mmol/L Carbon Dioxide (21.0-32.0) mmol/L BUN (7.0-18.0) mg/dL Creatinine (0.6-1.0) mg/dL Est Cr Clr Drug Dosing mL/min Estimated GFR (MDRD) ml/min Glucose (74-106) mg/dL Calcium (8.5-10.1) mg/dL Total Bilirubin (0.2-1.0) mg/dL AST (15-37) IU/L ALT (14-63) IU/L Alkaline Phosphatase (46-116) U/L Troponin I (0.000-0.056) ng/mL C-Reactive Protein (0.00-0.90) mg/dL Total Protein (6.4-8.2) g/dL Albumin (3.4-5.0) g/dL Globulin (2.6-4.0) g/dL Albumin/Globulin Ratio (0.9-1.6) Lipase (73-393) U/L Urine Color YELLOW Urine Appearance SLT CLOUDY Urine pH 6.5 (5.0-8.0) Ur Specific [place] 1.010 (1.001-1.035) Urine Protein NEGATIVE (NEGATIVE) mg/dL Urine Glucose (UA) NEGATIVE (NEGATIVE) mg/dL Urine Ketones NEGATIVE (NEGATIVE) mg/dL Urine Occult Blood NEGATIVE (NEGATIVE) Urine Nitrite NEGATIVE (NEGATIVE) Urine Bilirubin NEGATIVE (NEGATIVE) Urine Urobilinogen 0.2 (<2.0) EU/dL Ur Leukocyte Esterase NEGATIVE (NEGATIVE) Urine RBC 0-1 (0-2/HPF) Urine WBC 0-2 (0-5/HPF) Ur Epithelial Cells MODERATE (NONE-FEW) Urine Bacteria FEW (NEGATIVE) Urine HCG, Qual NEGATIVE (NEGATIVE) Vancomycin Trough (5.0-10.0) ug/mL COVID-19 (YESSI) NEGATIVE (NEGATIVE) Kevin Results Last 24 Hrs: Microbiology 02/14/20 21:45 Gram Stain - Preliminary [place]mbilicus Med Orders - Current: Current Medications Docusate Sodium (Colace) 100 mg PO DAILY [facility] Last Admin: 02/15/20 09:46 Dose: 100 mg Documented by: Hydromorphone HCl (Dilaudid) 2 mg PO Q4H PRN PRN Reason: Breakthrough Pain Last Admin: 02/15/20 09:46 Dose: 2 mg Documented by: Lactated Ringer's (Ringers, Lactated) 1,000 mls @ 75 mls/hr IV ASDIRECTED [facility] Last Admin: 02/15/20 01:50 Dose: 75 mls/hr Documented by: Piperacillin Sod/Tazobactam (Sod 3.375 gm/ Sodium Chloride) 50 mls @ 100 mls/hr IV Q6H [facility] Last Admin: 02/15/20 13:07 Dose: 100 mls/hr Documented by: Vancomycin HCl 1.5 gm/ Premix 300 mls @ 200 mls/hr IV Q12H [facility] Last Admin: 02/15/20 09:50 Dose: 200 mls/hr Documented by: Ketorolac Tromethamine (Toradol) 30 mg IVPUSH Q6H [facility] Stop: 02/20/20 13:22 Lorazepam (Ativan) 0.5 mg PO Q12H PRN PRN Reason: Anxiety Last Admin: 02/15/20 07:20 Dose: 0.5 mg Documented by: Morphine Sulfate (Morphine) 3 mg IVPUSH Q4H PRN PRN Reason: PAIN Last Admin: 02/15/20 10:34 Dose: 3 mg Documented by: Ondansetron HCl (Zofran) 4 mg IVPUSH Q8H PRN PRN Reason: Nausea/Vomiting Sodium Chloride (Saline Flush) 10 ml FLUSH ASDIRECTED PRN PRN Reason: Keep Vein Open Last Admin: 02/14/20 16:41 Dose: 10 ml Documented by: Sodium Chloride (Saline Flush) 2.5 ml FLUSH ASDIRECTED PRN PRN Reason: Keep Vein Open Last Admin: 02/14/20 16:41 Dose: 2.5 ml Documented by: Discontinued Medications Bupivacaine HCl/Epinephrine Bitart (Marcaine 0.25%/Epinephrine 1:200,000) Confirm Administered Dose 10 ml .ROUTE .STK-MED ONE Stop: 02/14/20 20:37 Cefazolin Sodium (Ancef) Confirm Administered Dose 1 gm .ROUTE .STK-MED ONE Stop: 02/14/20 20:36 Fentanyl (Sublimaze) Confirm Administered Dose 100 mcg .ROUTE .STK-MED ONE Stop: 02/14/20 20:39 Fentanyl (Sublimaze) Confirm Administered Dose 100 mcg .ROUTE .STK-MED ONE Stop: 02/14/20 22:12 Hydromorphone HCl (Dilaudid) 1 mg IVPUSH ONETIME ONE Stop: 02/14/20 16:01 Last Admin: 02/14/20 16:03 Dose: 1 mg Documented by: Hydromorphone HCl (Dilaudid) 1 mg IVPUSH ONETIME ONE Stop: 02/14/20 18:28 Last Admin: 02/14/20 18:31 Dose: 1 mg Documented by: Hydromorphone HCl (Dilaudid) Confirm Administered Dose 2 mg .ROUTE .STK-MED ONE Stop: 02/14/20 20:38 Hydromorphone HCl (Dilaudid) Confirm Administered Dose 2 mg .ROUTE .STK-MED ONE Stop: 02/14/20 22:17 Last Admin: 02/14/20 23:40 Dose: Not Given Documented by: Hydromorphone HCl (Dilaudid) 1 mg IV ONETIME ONE Stop: 02/14/20 22:23 Last Admin: 02/14/20 22:22 Dose: 1 mg Documented by: Lactated Ringer's (Ringers, Lactated) 1,000 mls @ 999 mls/hr IV ASDIRECTED [facility] Last Admin: 02/14/20 16:05 Dose: 999 mls/hr Documented by: Piperacillin Sod/Tazobactam (Sod 4.5 gm/ Sodium Chloride) 100 mls @ 100 mls/hr IV ONETIME ONE Stop: 02/14/20 18:41 Last Admin: 02/14/20 18:31 Dose: 100 mls/hr Documented by: Vancomycin HCl 1.75 gm/ Sodium (Chloride) 500 mls @ 333.333 mls/hr IV Q24H [facility] Last Admin: 02/14/20 19:12 Dose: 333.333 mls/hr Documented by: Lactated Ringer's (Ringers, Lactated) 1,000 mls @ 125 mls/hr IV ASDIRECTED [facility] Clindamycin Phosphate 600 mg/ (Premix) 50 mls @ 100 mls/hr IV ONETIME ONE Stop: 02/14/20 20:48 Last Admin: 02/14/20 23:36 Dose: Not Given Documented by: Clindamycin Phosphate (Cleocin In D5w) Confirm Administered Dose 50 mls @ as directed .ROUTE .STK-MED ONE Stop: 02/14/20 21:23 Last Admin: 02/14/20 23:39 Dose: Not Given Documented by: Piperacillin Sod/Tazobactam (Sod 3.375 gm/ Sodium Chloride) 50 mls @ 100 mls/hr IV Q8H [facility] Last Admin: 02/15/20 06:23 Dose: 100 mls/hr Documented by: Iopamidol (Isovue Multipack-370 (76%)) 100 ml IVPUSH ONETIME ONE Stop: 02/14/20 18:05 Last Admin: 02/14/20 18:05 Dose: 100 ml Documented by: Ketamine HCl (Ketalar) Confirm Administered Dose 500 mg .ROUTE .STK-MED ONE Stop: 02/14/20 20:39 Midazolam HCl (Versed 1 Mg/Ml) Confirm Administered Dose 2 mg .ROUTE .STK-MED ONE Stop: 02/14/20 20:41 Morphine Sulfate (Morphine) 3 mg IVPUSH Q12H PRN PRN Reason: Breakthrough Pain Last Admin: 02/14/20 23:50 Dose: 3 mg Documented by: Morphine Sulfate (Morphine) 3 mg IVPUSH Q4H PRN PRN Reason: Pain Last Admin: 02/15/20 06:21 Dose: 3 mg Documented by: Propofol (Diprivan 20 Ml) Confirm Administered Dose 600 mg .ROUTE .STK-MED ONE Stop: 02/14/20 20:38 Vancomycin HCl (Pharmacy To Dose - Vancomycin) 1 dose .XX ONETIME ONE Stop: 02/14/20 17:43 - Exam GI/Abdominal Exam: No Distention (wound vac in place, no leak) Sepsis Event Note - Evaluation Sepsis Screening Result: No Definite Risk - Focused Exam Vital Signs: Vital Signs Temp Pulse Resp BP Pulse Ox 02/15/20 07:30 87 18 115/64 96 02/15/20 04:19 97.2 F 85 17 112/68 97 02/15/20 03:19 97.2 F 86 18 118/69 97 02/15/20 02:19 97.5 F 82 17 114/59 L 95 02/15/20 01:49 80 17 118/62 95 Date Exam was Performed: 02/15/20 Time Exam was Performed: 13:30 - Problem List Review Problem List Initiated/Reviewed/Updated: Yes - My Orders Last 24 Hours: Active Orders 24 hr Category Date Time Status Admission Status [Patient Status] [ADT] Routine ADT 02/14/20 22:19 Active Admission Status [Patient Status] [ADT] Stat ADT 02/14/20 19:43 Active Cardiac Monitoring [RC] CONTINUOUS Care 02/14/20 16:01 Active Consult 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 Management/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 [CONS] Cons 02/14/20 23:04 Active Routine Consult to Wound Care Services [CONS] Routine Cons 02/14/20 22:58 Active NPO Now [Nothing per Oral Now Diet] [DIET] Diet 02/14/20 Dinner Active Regular Diet [DIET] Diet 02/15/20 Breakfast Active ANAEROBIC CULTURE Routine Lab 02/14/20 21:15 Received CULTURE BLOOD [BC] Stat Lab 02/14/20 15:57 Received CULTURE BLOOD [BC] Stat Lab 02/14/20 16:52 Received CULTURE WOUND [RM] Routine Lab 02/14/20 21:45 Results GRAM STAIN [RM] Routine Lab 02/14/20 21:45 Results VANCOMYCIN TROUGH [CHEM] Timed Lab 02/17/20 08:30 Ordered Docusate Sodium [Colace] Med 02/15/20 09:00 Active 100 mg PO DAILY HYDROmorphone [Dilaudid] Med 02/14/20 22:21 Active 2 mg PO Q4H PRN Ketorolac [Toradol] Med 02/15/20 13:30 Active 30 mg IVPUSH Q6H LORazepam [Ativan] Med 02/15/20 06:13 Active 0.5 mg PO Q12H PRN Lactated Ringers [Ringers, Lactated] 1,000 ml Med 02/14/20 22:30 Active IV ASDIRECTED Morphine Med 02/15/20 10:00 Active 3 mg IVPUSH Q4H PRN Ondansetron [Zofran] Med 02/14/20 23:00 Active 4 mg IVPUSH Q8H PRN Piperacillin/Tazobactam [Piperacil-Tazobact] 3.375 gm Med 02/15/20 12:00 Active Sodium Chloride 0.9% [Normal Saline] 50 ml IV Q6H Sodium Chloride 0.9% [Saline Flush] Med 02/14/20 16:00 Active 10 ml FLUSH ASDIRECTED PRN Sodium Chloride 0.9% [Saline Flush] Med 02/14/20 16:00 Active 2.5 ml FLUSH ASDIRECTED PRN VANCOmycin/Water for INJ (PEG) [VANCOmycin 1.5 GM/300 Med 02/15/20 09:00 Active ML Premix] 1.5 gm Premix Bag 1 bag IV Q12H Abdominal Binder [OM.PC] Routine Oth 02/14/20 23:10 Ordered Blood Culture x2 Reflex Set [OM.PC] Stat Oth 02/14/20 16:00 Ordered Saline Lock Insert [OM.PC] Stat Oth 02/14/20 16:00 Ordered Medication Orders Docusate Sodium (Colace) 100 mg PO DAILY [facility] Last Admin: 02/15/20 09:46 Dose: 100 mg Documented by: LAUREN Hydromorphone HCl (Dilaudid) 2 mg PO Q4H PRN PRN Reason: Breakthrough Pain Last Admin: 02/15/20 09:46 Dose: 2 mg Documented by: Admin: 02/15/20 04:01 Dose: 2 mg Documented by: Admin: 02/15/20 00:01 Dose: 2 mg Documented by: LESIA Lactated Ringer's (Ringers, Lactated) 1,000 mls @ 75 mls/hr IV ASDIRECTED [facility] Last Admin: 02/15/20 01:50 Dose: 75 mls/hr Documented by: LESIA Piperacillin Sod/Tazobactam (Sod 3.375 gm/ Sodium Chloride) 50 mls @ 100 mls/hr IV Q6H [facility] Last Admin: 02/15/20 13:07 Dose: 100 mls/hr Documented by: LAUREN Vancomycin HCl 1.5 gm/ Premix 300 mls @ 200 mls/hr IV Q12H [facility] Last Admin: 02/15/20 09:50 Dose: 200 mls/hr Documented by: LAUREN Ketorolac Tromethamine (Toradol) 30 mg IVPUSH Q6H [facility] Stop: 02/20/20 13:22 Lorazepam (Ativan) 0.5 mg PO Q12H PRN PRN Reason: Anxiety Last Admin: 02/15/20 07:20 Dose: 0.5 mg Documented by: LESIA Morphine Sulfate (Morphine) 3 mg IVPUSH Q4H PRN PRN Reason: PAIN Last Admin: 02/15/20 10:34 Dose: 3 mg Documented by: LAUREN Ondansetron HCl (Zofran) 4 mg IVPUSH Q8H PRN PRN Reason: Nausea/Vomiting Sodium Chloride (Saline Flush) 10 ml FLUSH ASDIRECTED PRN PRN Reason: Keep Vein Open Last Admin: 02/14/20 16:41 Dose: 10 ml Documented by: DILMA Sodium Chloride (Saline Flush) 2.5 ml FLUSH ASDIRECTED PRN PRN Reason: Keep Vein Open Last Admin: 02/14/20 16:41 Dose: 2.5 ml Documented by: DILMA - Assessment Assessment (Free Text/Narrative):: doing well, added toraldol for pain; await home wound vac - Plan Plan (Free Text/Narrative):: doing well, added toraldol for pain; await home wound vac
[2020-02-15] MEDS: Ketorolac 30 MG/ML SDV IVPUSH SCH ×2 (14:46→18:36)
[2020-02-16] MEDS: Piperacillin/Tazobactam 3.375 GM in Sodium Chloride 0.9% 50 ML IV SCH ×4 (00:21→17:34)
[2020-02-16] MEDS: Ketorolac 30 MG/ML SDV IVPUSH SCH ×3 (01:02→13:35)
[2020-02-16] MEDS: HYDROmorphone 2 MG Tab PO PRN (05:20)
--- NOTE | 2020-02-16 10:59 | CONS ---
DATE OF CONSULTATION: 02/14/2020 DATE OF : 1990 PRIMARY CARE PHYSICIAN: None PCP This is consult from ER provider, Sha Tabor and also Dr. Son, CHAIR CAR ATTENDANT for wound infection. HISTORY OF PRESENT ILLNESS: The patient is a 29-year-old obese lady, BMI of 38 and weighs 250 pounds, has laparoscopic surgery, oophorectomy and salpingectomy on February 04, about 10 days from today and postop was doing fine. At first, patient remarked there is no pain and then 5 days later the patient started to experience pain and wound drainage, and was eventually seen by Dr. Son, on-call Bundle Tier And Labeler surgeon, so February 11, Dr. Son took the patient in and cleared hematoma and packed the wound the patient stayed overnight in the hospital and yesterday morning the patient went home. The patient remarked that there was no pain when she left home again on February 12, but slowly the pain increased. The patient was seen in the emergency room today and got a CAT scan, showed some bubbles. Surgery was then consulted. The patient denied nausea, vomiting, fever, chills, or diarrhea and does remark that the pain is unbearable. The patient took some hydrocodone on at home and some Motrin. PAST MEDICAL HISTORY: Significant for no diabetes, CO, CVA, hypertension. PAST SURGICAL HISTORY: x2 and the laparoscopic surgery and wound exploration. FAMILY HISTORY: Noncontributory. Denied any family history of malignant hyperthermia. SOCIAL HISTORY: Denied tobacco, alcohol, or chewing tobacco abuse. ALLERGIES: Please refer to nursing for details. MEDICATION: Please refer to nursing for details. PHYSICAL EXAMINATION: GENERAL: A very pleasant lady, sometimes smiles to the doctor, in no acute distress. HEENT: Normocephalic and atraumatic. Sclerae anicteric. LUNGS: Clear to auscultation. HEART: Regular rate and rhythm. ABDOMEN: Soft with a large cellulitis spanning from across abdomen and probably spanning also one palm above the belly button one palm below the bellybutton incision site, totally cellulitic and blanching. The pain is only localized in the incision site and even a little bit below. The incision site has very minimal pain, but the patient is guarding throughout the examination. Denied any fluid drain for the whole day. DATA: White count 12.9. CAT scan shows bubbles, and in fact, the patient has some tracking from 2 days ago and the bubble is likely postop change and the package material. IMPRESSION: Wound infection, almost I would say it is likely postop change, but the dressing needs to be changed. With the patient's low pain tolerance, no way one can change her dressing on the floor or at home and at the same time with obese, BMI of 38, and failed wound once, although the operative finding has a lot of hair in the wound, the patient would benefit from a wound VAC placement. We took the patient in for wound exploration, drainage, and wound VAC placement. Risks and benefits discussed with the patient including postop course. The patient concurred to proceed as planned. SILVIA / JAY JAY /[id number]
[2020-02-16] MEDS: Lactated Ringers 1,000 ML IV SCH (11:01)
[2020-02-16] MEDS: Docusate Sodium 100 MG Cap PO SCH (11:15)
[2020-02-16] MEDS ORDERED: Morphine 10 MG/ML Syringe IVPUSH ONE (11:30)
[2020-02-16] MEDS: Morphine 10 MG/ML Syringe IVPUSH PRN ×3 (12:14→12:26)
[2020-02-16] MEDS ORDERED: Lidocaine 1% 20 ML MDV ONE (12:34)
--- NOTE | 2020-02-16 13:05 | PCM.SURGPN ---
- General Info Date of Service: 02/16/20 Functional Status: Reports: Pain Controlled (av vss, kelly po, voided; ) - Patient Data Vitals - Most Recent: Last Vital Signs Temp 98.4 F 02/16/20 04:00 Pulse 70 02/16/20 04:00 Resp 17 02/16/20 04:00 BP 104/63 02/16/20 04:00 Pulse Ox 96 02/16/20 04:00 Weight - Most Recent: 250 lb I&O - Last 24 Hours: Intake & Output 02/15/20 02/16/20 02/16/20 22:59 06:59 14:59 Intake Total 1983 1754 300 Output Total 2099 1450 Balance -116 304 300 Kevin Results Last 24 Hrs: Microbiology 02/14/20 21:45 Gram Stain - Final Umbilicus Wound Culture - Final Skin Mer 02/14/20 16:52 Aerobic Blood Culture - Preliminary Blood - Venous - Lab Draw NO GROWTH AFTER 1 DAY Anaerobic Blood Culture - Preliminary NO GROWTH AFTER 1 DAY 02/14/20 15:57 Aerobic Blood Culture - Preliminary Blood - Venous NO GROWTH AFTER 1 DAY Anaerobic Blood Culture - Preliminary NO GROWTH AFTER 1 DAY Med Orders - Current: Current Medications Docusate Sodium (Colace) 100 mg PO DAILY [facility] Last Admin: 02/16/20 11:15 Dose: 100 mg Documented by: Hydromorphone HCl (Dilaudid) 2 mg PO Q4H PRN PRN Reason: Breakthrough Pain Last Admin: 02/16/20 05:20 Dose: 2 mg Documented by: Lactated Ringer's (Ringers, Lactated) 1,000 mls @ 75 mls/hr IV ASDIRECTED [facility] Last Admin: 02/16/20 11:01 Dose: 75 mls/hr Documented by: Piperacillin Sod/Tazobactam (Sod 3.375 gm/ Sodium Chloride) 50 mls @ 100 mls/hr IV Q6H [facility] Last Admin: 02/16/20 05:23 Dose: 100 mls/hr Documented by: Vancomycin HCl 1.5 gm/ Premix 300 mls @ 200 mls/hr IV Q12H [facility] Last Admin: 02/16/20 11:03 Dose: 200 mls/hr Documented by: Ketorolac Tromethamine (Toradol) 30 mg IVPUSH Q6H [facility] Stop: 02/20/20 13:22 Last Admin: 02/16/20 07:03 Dose: 30 mg Documented by: Lorazepam (Ativan) 0.5 mg PO Q12H PRN PRN Reason: Anxiety Last Admin: 02/15/20 07:20 Dose: 0.5 mg Documented by: Morphine Sulfate (Morphine) 3 mg IVPUSH Q4H PRN PRN Reason: PAIN Last Admin: 02/15/20 22:27 Dose: 3 mg Documented by: Ondansetron HCl (Zofran) 4 mg IVPUSH Q8H PRN PRN Reason: Nausea/Vomiting Last Admin: 02/15/20 14:48 Dose: 4 mg Documented by: Sodium Chloride (Saline Flush) 10 ml FLUSH ASDIRECTED PRN PRN Reason: Keep Vein Open Last Admin: 02/14/20 16:41 Dose: 10 ml Documented by: Sodium Chloride (Saline Flush) 2.5 ml FLUSH ASDIRECTED PRN PRN Reason: Keep Vein Open Last Admin: 02/14/20 16:41 Dose: 2.5 ml Documented by: Discontinued Medications Bupivacaine HCl/Epinephrine Bitart (Marcaine 0.25%/Epinephrine 1:200,000) Confirm Administered Dose 10 ml .ROUTE .STK-MED ONE Stop: 02/14/20 20:37 Cefazolin Sodium (Ancef) Confirm Administered Dose 1 gm .ROUTE .STK-MED ONE Stop: 02/14/20 20:36 Fentanyl (Sublimaze) Confirm Administered Dose 100 mcg .ROUTE .STK-MED ONE Stop: 02/14/20 20:39 Fentanyl (Sublimaze) Confirm Administered Dose 100 mcg .ROUTE .STK-MED ONE Stop: 02/14/20 22:12 Hydromorphone HCl (Dilaudid) 1 mg IVPUSH ONETIME ONE Stop: 02/14/20 16:01 Last Admin: 02/14/20 16:03 Dose: 1 mg Documented by: Hydromorphone HCl (Dilaudid) 1 mg IVPUSH ONETIME ONE Stop: 02/14/20 18:28 Last Admin: 02/14/20 18:31 Dose: 1 mg Documented by: Hydromorphone HCl (Dilaudid) Confirm Administered Dose 2 mg .ROUTE .STK-MED ONE Stop: 02/14/20 20:38 Hydromorphone HCl (Dilaudid) Confirm Administered Dose 2 mg .ROUTE .STK-MED ONE Stop: 02/14/20 22:17 Last Admin: 02/14/20 23:40 Dose: Not Given Documented by: Hydromorphone HCl (Dilaudid) 1 mg IV ONETIME ONE Stop: 02/14/20 22:23 Last Admin: 02/14/20 22:22 Dose: 1 mg Documented by: Lactated Ringer's (Ringers, Lactated) 1,000 mls @ 999 mls/hr IV ASDIRECTED [facility] Last Admin: 02/14/20 16:05 Dose: 999 mls/hr Documented by: Piperacillin Sod/Tazobactam (Sod 4.5 gm/ Sodium Chloride) 100 mls @ 100 mls/hr IV ONETIME ONE Stop: 02/14/20 18:41 Last Admin: 02/14/20 18:31 Dose: 100 mls/hr Documented by: Vancomycin HCl 1.75 gm/ Sodium (Chloride) 500 mls @ 333.333 mls/hr IV Q24H [facility] Last Admin: 02/14/20 19:12 Dose: 333.333 mls/hr Documented by: Lactated Ringer's (Ringers, Lactated) 1,000 mls @ 125 mls/hr IV ASDIRECTED [facility] Clindamycin Phosphate 600 mg/ (Premix) 50 mls @ 100 mls/hr IV ONETIME ONE Stop: 02/14/20 20:48 Last Admin: 02/14/20 23:36 Dose: Not Given Documented by: Clindamycin Phosphate (Cleocin In D5w) Confirm Administered Dose 50 mls @ as directed .ROUTE .STK-MED ONE Stop: 02/14/20 21:23 Last Admin: 02/14/20 23:39 Dose: Not Given Documented by: Piperacillin Sod/Tazobactam (Sod 3.375 gm/ Sodium Chloride) 50 mls @ 100 mls/hr IV Q8H [facility] Last Admin: 02/15/20 06:23 Dose: 100 mls/hr Documented by: Iopamidol (Isovue Multipack-370 (76%)) 100 ml IVPUSH ONETIME ONE Stop: 02/14/20 18:05 Last Admin: 02/14/20 18:05 Dose: 100 ml Documented by: Ketamine HCl (Ketalar) Confirm Administered Dose 500 mg .ROUTE .STK-MED ONE Stop: 02/14/20 20:39 Lidocaine HCl (Xylocaine 1%) Confirm Administered Dose 20 ml .ROUTE .STK-MED ONE Stop: 02/16/20 12:35 Last Admin: 02/16/20 12:34 Dose: 5 ml Documented by: Midazolam HCl (Versed 1 Mg/Ml) Confirm Administered Dose 2 mg .ROUTE .STK-MED ONE Stop: 02/14/20 20:41 Morphine Sulfate (Morphine) 3 mg IVPUSH Q12H PRN PRN Reason: Breakthrough Pain Last Admin: 02/14/20 23:50 Dose: 3 mg Documented by: Morphine Sulfate (Morphine) 3 mg IVPUSH Q4H PRN PRN Reason: Pain Last Admin: 02/16/20 12:26 Dose: 2 mg Documented by: Morphine Sulfate (Morphine) 10 mg IVPUSH ONETIME ONE Stop: 02/16/20 11:31 Last Admin: 02/16/20 12:05 Dose: 2 mg Documented by: Propofol (Diprivan 20 Ml) Confirm Administered Dose 600 mg .ROUTE .STK-MED ONE Stop: 02/14/20 20:38 Vancomycin HCl (Pharmacy To Dose - Vancomycin) 1 dose .XX ONETIME ONE Stop: 02/14/20 17:43 - Exam GI/Abdominal Exam: Soft, Other (wound, absolutely prestine, no odor/drainage; beefy red granulation; 4.5X3X2 cm) Sepsis Event Note - Evaluation Sepsis Screening Result: No Definite Risk - Focused Exam Vital Signs: Vital Signs Temp Pulse Resp BP Pulse Ox 02/16/20 04:00 98.4 F 70 17 104/63 96 Date Exam was Performed: 02/16/20 Time Exam was Performed: 13:00 - Problem List Review Problem List Initiated/Reviewed/Updated: Yes - My Orders Last 24 Hours: Active Orders 24 hr Category Date Time Status Overnight Pulse Oximetry [RC] Click to Edit Care 02/16/20 11:34 Active VANCOMYCIN TROUGH [CHEM] Timed Lab 02/17/20 08:30 Ordered Ketorolac [Toradol] Med 02/15/20 13:30 Active 30 mg IVPUSH Q6H Pulse Oximetry Continuous Monitoring [OM.PC] Routine Oth 02/16/20 11:33 Ordered Medication Orders Docusate Sodium (Colace) 100 mg PO DAILY [facility] Last Admin: 02/16/20 11:15 Dose: 100 mg Documented by: Admin: 02/15/20 09:46 Dose: 100 mg Documented by: LAUREN Hydromorphone HCl (Dilaudid) 2 mg PO Q4H PRN PRN Reason: Breakthrough Pain Last Admin: 02/16/20 05:20 Dose: 2 mg Documented by: Admin: 02/15/20 19:51 Dose: 2 mg Documented by: Admin: 02/15/20 13:58 Dose: 2 mg Documented by: Admin: 02/15/20 09:46 Dose: 2 mg Documented by: Admin: 02/15/20 04:01 Dose: 2 mg Documented by: Admin: 02/15/20 00:01 Dose: 2 mg Documented by: LESIA Lactated Ringer's (Ringers, Lactated) 1,000 mls @ 75 mls/hr IV ASDIRECTED [facility] Last Admin: 02/16/20 11:01 Dose: 75 mls/hr Documented by: Infusion: 02/16/20 07:53 Dose: 75 mls/hr Documented by: Admin: 02/15/20 18:33 Dose: 75 mls/hr Documented by: Infusion: 02/15/20 15:10 Dose: 75 mls/hr Documented by: Admin: 02/15/20 01:50 Dose: 75 mls/hr Documented by: LESIA Piperacillin Sod/Tazobactam (Sod 3.375 gm/ Sodium Chloride) 50 mls @ 100 mls/hr IV Q6H [facility] Last Admin: 02/16/20 05:23 Dose: 100 mls/hr Documented by: Infusion: 02/16/20 00:51 Dose: 100 mls/hr Documented by: Admin: 02/16/20 00:21 Dose: 100 mls/hr Documented by: Infusion: 02/15/20 19:03 Dose: 100 mls/hr Documented by: Admin: 02/15/20 18:33 Dose: 100 mls/hr Documented by: Infusion: 02/15/20 13:37 Dose: 100 mls/hr Documented by: Admin: 02/15/20 13:07 Dose: 100 mls/hr Documented by: LAUREN Vancomycin HCl 1.5 gm/ Premix 300 mls @ 200 mls/hr IV Q12H [facility] Last Admin: 02/16/20 11:03 Dose: 200 mls/hr Documented by: Infusion: 02/15/20 23:05 Dose: 200 mls/hr Documented by: Admin: 02/15/20 21:35 Dose: 200 mls/hr Documented by: Infusion: 02/15/20 11:20 Dose: 200 mls/hr Documented by: Admin: 02/15/20 09:50 Dose: 200 mls/hr Documented by: LAUREN Ketorolac Tromethamine (Toradol) 30 mg IVPUSH Q6H [facility] Stop: 02/20/20 13:22 Last Admin: 02/16/20 07:03 Dose: 30 mg Documented by: Admin: 02/16/20 01:02 Dose: 30 mg Documented by: Admin: 02/15/20 18:36 Dose: 30 mg Documented by: Admin: 02/15/20 14:46 Dose: 30 mg Documented by: LAUREN Lorazepam (Ativan) 0.5 mg PO Q12H PRN PRN Reason: Anxiety Last Admin: 02/15/20 07:20 Dose: 0.5 mg Documented by: LESIA Morphine Sulfate (Morphine) 3 mg IVPUSH Q4H PRN PRN Reason: PAIN Last Admin: 02/15/20 22:27 Dose: 3 mg Documented by: Admin: 02/15/20 10:34 Dose: 3 mg Documented by: LAUREN Ondansetron HCl (Zofran) 4 mg IVPUSH Q8H PRN PRN Reason: Nausea/Vomiting Last Admin: 02/15/20 14:48 Dose: 4 mg Documented by: LAUREN Sodium Chloride (Saline Flush) 10 ml FLUSH ASDIRECTED PRN PRN Reason: Keep Vein Open Last Admin: 02/14/20 16:41 Dose: 10 ml Documented by: DILMA Sodium Chloride (Saline Flush) 2.5 ml FLUSH ASDIRECTED PRN PRN Reason: Keep Vein Open Last Admin: 02/14/20 16:41 Dose: 2.5 ml Documented by: DILMA - Assessment Assessment (Free Text/Narrative):: wound 4.5X3X2 cm, DxWXL, cut foam to 6X6X4; wound vac placed, no leak; home on wound vac and script; fu w me 1 - 2 wk; PT for next wound vac drsg change , or 2X per week; expect healing in 2 wks when no infection; time spent 1 hr and 25 min, morphine 8mg, lidocaine 5cc, 1%, no epi; wound prestine, no odor/drainage; wound vac collection under 20 cc serosanguinous over 48 hrs - Plan Plan (Free Text/Narrative):: wound 4.5X3X2 cm, DxWXL, cut foam to 6X6X4; wound vac placed, no leak; home on wound vac and script; fu w me 1 - 2 wk; PT for next wound vac drsg change , or 2X per week; expect healing in 2 wks when no infection; time spent 1 hr and 25 min, morphine 8mg, lidocaine 5cc, 1%, no epi; wound prestine, no odor/drainage; wound vac collection under 20 cc serosanguinous over 48 hrs
--- NOTE | 2020-02-16 14:41 | OR ---
SURGEON: Ron Barton MD DATE OF PROCEDURE: 02/14/2020 PREOPERATIVE DIAGNOSIS: Wound infection. POSTOPERATIVE DIAGNOSIS: Wound infection. PROCEDURES PERFORMED: 1. Wound exploration. 2. Wound washout. 3. Wound VAC placement. PRIMARY SURGEON: Ron Barton MD. COMPLICATIONS: None. FINDINGS: The wound in fact looks pretty good. I do not see any elva purulent drainage, and Gram stain and C and S sent. The wound was a little bit ulcerated and cellulitic at the superficial skin edge, and that is what may have caused the patient's pain. DESCRIPTION OF PROCEDURE: The patient was taken to the operating room, placed in the supine position. Upon induction of general anesthesia, the patient's abdomen was prepped and draped in a sterile fashion, and the dressing was pulled out, after the patient was sedated. The dressing looks a little bit soapy, but there is no elva pus, and the wound edge on the skin was cellulitic, and a little bit ulcerated, and that was debrided to healthy tissue. The wound was also extended and irrigated copiously and, after that, measurement made. The depth was 45 mm, and the vertical wound was 30 mm. The horizontal dimension was 20 mm. No tunneling. Wound VAC packing, the foam, was cut, custom-made, and put in and followed with application of the wound VAC applicator and put to 120 mm of Mercury, and there is no leak. The patient was awakened, transferred to recovery room in a hemodynamically stable condition. The patient tolerated the procedure well. There were no intraoperative complications. Dr. Barton was present throughout the whole procedure. As always, thank you for the kind referral. SILVIA / JAY JAY /[id number]
[2020-02-16] MEDS: Ketorolac 10 MG Tab PO SCH ×2 (17:32→23:29)
[2020-02-16] MEDS: Amoxicillin/Clavulanate K 875-125 MG Tab PO SCH (21:49)
[2020-02-17] MEDS: Ketorolac 10 MG Tab PO SCH (05:36)
--- NOTE | 2020-02-17 09:30 | PCM.DCSUM1 ---
Discharge Summary - Hospital Course Free Text/Narrative:: see admitting hx for details; pt presented to ED 2 days after DC from hosp for pain and drainage from wound; workup w ct showed bubbles on wound, concerned about persistent wound infection; on exam, pt's pain is out of proportion to procedure, pt was taken to surgery for wound exploration and wound vac placement Diagnosis: Stroke: No - Discharge Data Discharge Date: 02/17/20 Discharge Disposition: Home, Self-Care 01 Condition: Good - Referral to Home Health Date of Face to Face Encounter: 02/17/20 Primary Care Physician: PCP None - Patient Summary/Data Operative Procedure(s) Performed: wound exploration, wound vac application Consults: Consultations 02/14/20 22:58 Consult to Wound Care Services [CONS] Routine 02/14/20 23:04 Consult to Case Management/[facility] [CONS] Routine Hospital Course: pt was taken to surgery, wound exploration and wound vac placement; wound was with very little odor, and so serous sanginous drainage, no elva purulent materials; edge of skin was cellulitic, overall, failed to appreciate any infection, other than routine postop change; wound vac applied because of 1) noncompliant (previous surg finding, large amount of pet hair), morbid obese 3) failed surgery once; pt was then admitted to the floor, await home wound vac; home vac available on pod3; pt was then discharged; pt refused to be discharge on pod3 for pain reasone, demanded to stay in hospital till wean off from iv pain meds; pt stayed another day, on only po pain meds and was then discharged; fu w PT as scheduled for wound vac change, and w me 2 wks. - Patient Instructions Diet: Regular Diet as Tolerated Activity: No Lifting Over 10 Pounds, No Strenuous Activities Activity, Other: abd binder at all time X 1 wk, then only upright X 2 wks, then prn Driving: Do Not Drive Showering/Bathing, Other: sponge bath till wound vac off Wound/Incision Care: Keep Operative Site/Wound Site Clean and Dry Notify Provider of: Fever, Drainage, Nausea and/or Vomiting - Discharge Plan Home Medications: Home Meds Acetaminophen [Tylenol Extra Strength] 800 mg PO Q6H PRN 09/06/17 [History] Hydrocodone/Acetaminophen [Hydrocodone-Acetamin 5-325 mg] 1 - 2 tab PO Q6H PRN 02/10/20 [History] Patient Handouts: Docusate Sodium; Senna tablets or capsules, Hydromorphone tablets Referrals: Ron Barton MD [Physician] - 03/01/20 9:15 am - Discharge Summary/Plan Comment DC Time >30 min.: Yes - Patient Data Vitals - Most Recent: Last Vital Signs Temp 97.6 F 02/17/20 04:00 Pulse 83 02/17/20 04:00 Resp 14 02/17/20 04:00 BP 130/75 02/17/20 04:00 Pulse Ox 94 L 02/17/20 04:00 Weight - Most Recent: 250 lb I&O - Last 24 hours: Intake & Output 02/16/20 02/17/20 02/17/20 22:59 06:59 14:59 Intake Total 676 600 Output Total 1200 1400 Balance -524 -800 BUZZ Results - Last 24 hrs: Microbiology 02/14/20 16:52 Aerobic Blood Culture - Preliminary Blood - Venous - Lab Draw NO GROWTH AFTER 2 DAYS Anaerobic Blood Culture - Preliminary NO GROWTH AFTER 2 DAYS 02/14/20 15:57 Aerobic Blood Culture - Preliminary Blood - Venous NO GROWTH AFTER 2 DAYS Anaerobic Blood Culture - Preliminary NO GROWTH AFTER 2 DAYS 02/14/20 21:45 Gram Stain - Final Umbilicus Wound Culture - Final Skin Mer Med Orders - Current: Current Medications Amoxicillin/Clavulanate Potassium (Augmentin 875 Mg/125 Mg) 1 tab PO Q12HR [facility] Last Admin: 02/16/20 21:49 Dose: 1 tab Documented by: Docusate Sodium (Colace) 100 mg PO DAILY [facility] Last Admin: 02/16/20 11:15 Dose: 100 mg Documented by: Hydromorphone HCl (Dilaudid) 2 mg PO Q4H PRN PRN Reason: Breakthrough Pain Last Admin: 02/16/20 05:20 Dose: 2 mg Documented by: Ketorolac Tromethamine (Toradol) 10 mg PO QID [facility] Stop: 02/21/20 18:01 Last Admin: 02/17/20 05:36 Dose: 10 mg Documented by: Lorazepam (Ativan) 0.5 mg PO Q12H PRN PRN Reason: Anxiety Last Admin: 02/15/20 07:20 Dose: 0.5 mg Documented by: Sodium Chloride (Saline Flush) 10 ml FLUSH ASDIRECTED PRN PRN Reason: Keep Vein Open Last Admin: 02/14/20 16:41 Dose: 10 ml Documented by: Sodium Chloride (Saline Flush) 2.5 ml FLUSH ASDIRECTED PRN PRN Reason: Keep Vein Open Last Admin: 02/14/20 16:41 Dose: 2.5 ml Documented by: Discontinued Medications Bupivacaine HCl/Epinephrine Bitart (Marcaine 0.25%/Epinephrine 1:200,000) Confirm Administered Dose 10 ml .ROUTE .STK-MED ONE Stop: 02/14/20 20:37 Cefazolin Sodium (Ancef) Confirm Administered Dose 1 gm .ROUTE .STK-MED ONE Stop: 02/14/20 20:36 Fentanyl (Sublimaze) Confirm Administered Dose 100 mcg .ROUTE .STK-MED ONE Stop: 02/14/20 20:39 Fentanyl (Sublimaze) Confirm Administered Dose 100 mcg .ROUTE .STK-MED ONE Stop: 02/14/20 22:12 Hydromorphone HCl (Dilaudid) 1 mg IVPUSH ONETIME ONE Stop: 02/14/20 16:01 Last Admin: 02/14/20 16:03 Dose: 1 mg Documented by: Hydromorphone HCl (Dilaudid) 1 mg IVPUSH ONETIME ONE Stop: 02/14/20 18:28 Last Admin: 02/14/20 18:31 Dose: 1 mg Documented by: Hydromorphone HCl (Dilaudid) Confirm Administered Dose 2 mg .ROUTE .STK-MED ONE Stop: 02/14/20 20:38 Hydromorphone HCl (Dilaudid) Confirm Administered Dose 2 mg .ROUTE .STK-MED ONE Stop: 02/14/20 22:17 Last Admin: 02/14/20 23:40 Dose: Not Given Documented by: Hydromorphone HCl (Dilaudid) 1 mg IV ONETIME ONE Stop: 02/14/20 22:23 Last Admin: 02/14/20 22:22 Dose: 1 mg Documented by: Lactated Ringer's (Ringers, Lactated) 1,000 mls @ 999 mls/hr IV ASDIRECTED [facility] Last Admin: 02/14/20 16:05 Dose: 999 mls/hr Documented by: Piperacillin Sod/Tazobactam (Sod 4.5 gm/ Sodium Chloride) 100 mls @ 100 mls/hr IV ONETIME ONE Stop: 02/14/20 18:41 Last Admin: 02/14/20 18:31 Dose: 100 mls/hr Documented by: Vancomycin HCl 1.75 gm/ Sodium (Chloride) 500 mls @ 333.333 mls/hr IV Q24H [facility] Last Admin: 02/14/20 19:12 Dose: 333.333 mls/hr Documented by: Lactated Ringer's (Ringers, Lactated) 1,000 mls @ 125 mls/hr IV ASDIRECTED [facility] Clindamycin Phosphate 600 mg/ (Premix) 50 mls @ 100 mls/hr IV ONETIME ONE Stop: 02/14/20 20:48 Last Admin: 02/14/20 23:36 Dose: Not Given Documented by: Clindamycin Phosphate (Cleocin In D5w) Confirm Administered Dose 50 mls @ as directed .ROUTE .STK-MED ONE Stop: 02/14/20 21:23 Last Admin: 02/14/20 23:39 Dose: Not Given Documented by: Lactated Ringer's (Ringers, Lactated) 1,000 mls @ 75 mls/hr IV ASDIRECTED [facility] Last Admin: 02/16/20 11:01 Dose: 75 mls/hr Documented by: Piperacillin Sod/Tazobactam (Sod 3.375 gm/ Sodium Chloride) 50 mls @ 100 mls/hr IV Q8H [facility] Last Admin: 02/15/20 06:23 Dose: 100 mls/hr Documented by: Piperacillin Sod/Tazobactam (Sod 3.375 gm/ Sodium Chloride) 50 mls @ 100 mls/hr IV Q6H [facility] Last Admin: 02/16/20 17:34 Dose: 100 mls/hr Documented by: Vancomycin HCl 1.5 gm/ Premix 300 mls @ 200 mls/hr IV Q12H [facility] Last Admin: 02/16/20 21:41 Dose: Not Given Documented by: Iopamidol (Isovue Multipack-370 (76%)) 100 ml IVPUSH ONETIME ONE Stop: 02/14/20 18:05 Last Admin: 02/14/20 18:05 Dose: 100 ml Documented by: Ketamine HCl (Ketalar) Confirm Administered Dose 500 mg .ROUTE .STK-MED ONE Stop: 02/14/20 20:39 Ketorolac Tromethamine (Toradol) 30 mg IVPUSH Q6H [facility] Stop: 02/20/20 13:22 Last Admin: 02/16/20 13:35 Dose: Not Given Documented by: Lidocaine HCl (Xylocaine 1%) Confirm Administered Dose 20 ml .ROUTE .STK-MED ONE Stop: 02/16/20 12:35 Last Admin: 02/16/20 12:34 Dose: 5 ml Documented by: Midazolam HCl (Versed 1 Mg/Ml) Confirm Administered Dose 2 mg .ROUTE .STK-MED ONE Stop: 02/14/20 20:41 Morphine Sulfate (Morphine) 3 mg IVPUSH Q12H PRN PRN Reason: Breakthrough Pain Last Admin: 02/14/20 23:50 Dose: 3 mg Documented by: Morphine Sulfate (Morphine) 3 mg IVPUSH Q4H PRN PRN Reason: Pain Last Admin: 02/16/20 12:26 Dose: 2 mg Documented by: Morphine Sulfate (Morphine) 3 mg IVPUSH Q4H PRN PRN Reason: PAIN Last Admin: 02/15/20 22:27 Dose: 3 mg Documented by: Morphine Sulfate (Morphine) 10 mg IVPUSH ONETIME ONE Stop: 02/16/20 11:31 Last Admin: 02/16/20 12:05 Dose: 2 mg Documented by: Ondansetron HCl (Zofran) 4 mg IVPUSH Q8H PRN PRN Reason: Nausea/Vomiting Last Admin: 02/15/20 14:48 Dose: 4 mg Documented by: Propofol (Diprivan 20 Ml) Confirm Administered Dose 600 mg .ROUTE .STK-MED ONE Stop: 02/14/20 20:38 Vancomycin HCl (Pharmacy To Dose - Vancomycin) 1 dose .XX ONETIME ONE Stop: 02/14/20 17:43
[2020-02-17] MEDS: Amoxicillin/Clavulanate K 875-125 MG Tab PO SCH (10:15)
[2020-02-17] MEDS: Docusate Sodium 100 MG Cap PO SCH (10:16)
[2020-02-17 10:27] VITALS: BP 118/63; PULSE 80
== END 2020-02-17 11:15 | disposition home or self-care (01) | DRG 721 ==
LOC: MW.ED 15:35 → MW.MS 19:43
PROVIDERS: ADMIT Surgery; ATTEND Surgery
PROC: 2W13X6Z Compression of Abdominal Wall using Pressure Dressing (ICD-10-PCS; principal; 2020-02-14)
PROC: 0HB7XZZ Excision of Abdomen Skin, External Approach (ICD-10-PCS; 2020-02-14)
DX: T81.41XA Infection following a procedure, superficial incisional surgical site, initial encounter (principal); Y83.8 Other surgical procedures as the cause of abnormal reaction of the patient, or of later complication, without mention of misadventure at the time of the procedure; L03.311 Cellulitis of abdominal wall; Z68.38 Body mass index [BMI] 38.0-38.9, adult; E66.01 Morbid (severe) obesity due to excess calories
CPT/HCPCS: 36415; 74177; 74177-26; 80053; 80202; 81001; 81025; 83605; 83690; 84484; 85025; 85610; 86140; 87040; 87070; 87075; 87205; 88304; 93005; 96365; 96368; 96375; 96376; 99284; 99285-25; A9270-GY; J0690; J1170; J1885; J2001; J2250; J2270; J2405; J2543; J2704; J3010; J3370; J3490; J7040; J7050; J7120; Q9967; U0002

== ENCOUNTER 2020-10-31 20:39 | Emergency (ER) | payer BC ==
[2020-10-31] MEDS ORDERED: Morphine 4 MG/ML Syringe IVPUSH ONE (21:27)
[2020-10-31 22:20] LABS: BLOOD UREA NITROGEN,BUN 11 mg/dL (7.0-18.0); CARBON DIOXIDE,CO2 25.9 mmol/L (21.0-32.0); CHLORIDE,CL 106 mmol/L (98-107); GLUCOSE RANDOM 111 mg/dL (74-106); POTASSIUM,K 3.9 mmol/L (3.5-5.1); SODIUM,NA 142 mmol/L (136-145)
[2020-10-31] MEDS ORDERED: Iopamidol 755 MG/ML 500 ML Multipack Bottle IVPUSH STA (23:02)
--- NOTE | 2020-10-31 23:23 | CT ---
DATE: 10/31/2020 CLINICAL HISTORY: Patient with left-sided facial and neck pain and swelling. TECHNIQUE: Standard helical CT image acquisition of the neck up to the skull base after bolus intravenous contrast enhancement. Multiplanar reconstructed images performed on a separate workstation. COMPARISON: None. FINDINGS: There is no evidence of abscess or masses in the neck. The airway is patent. There is scattered upper cervical lymph nodes, likely reactive. The visualized intracranial contents are unremarkable. The visualized lung apices are unremarkable. The thyroid gland is unremarkable. The cervical spine is unremarkable. IMPRESSION: No evidence of abscess or masses in the neck. Please note that all CT scans at this facility use dose modulation, iterative reconstruction, and/or weight-based dosing when appropriate to reduce radiation dose to as low as reasonably achievable. Dictated by Phillip Andrade MD @ 10/31/2020 11:20:[address] Phillip Andrade @ Oct 31 2020 11:20PM
--- NOTE | 2020-11-01 00:20 | EDM.PDOC ---
ED HPI GENERAL MEDICAL PROBLEM - General Chief Complaint: ENT Problem Stated Complaint: TOOTH PAIN Time Seen by Provider: 10/31/20 21:00 - History of Present Illness INITIAL COMMENTS - FREE TEXT/NARRATIVE: CHIEF COMPLAINT(S): "My whole left side of my face hurts." HISTORY OF PRESENT ILLNESS: This is a 30-year-old woman with a past medical history of some broken teeth in her left jaw who comes to the emergency department with a chief complaint of "my whole left side of my face hurts." The patient states that starting approximately 4 hours prior to arrival she started to experience sharp/constant 10 out of 10 left-sided pain without any radiation. She states that she took Tylenol and Advil without any relief. She denies any aggravating factors. She denies any associated fever, chills, cough, shortness of breath, trouble swallowing, drooling. She denies any nausea or vomiting. She denies any headache, blurry vision, loss of vision, double vision, hearing loss. She states that she does have some mild ear pain which is located around the same area where her jaw pain is. She denies any tooth pain. REVIEW OF SYSTEMS: Constitutional: Denies fever, chills. Eyes: Denies eye pain Ears, Nose, Mouth, & Throat: Positive for left-sided jaw and ear ache pain. Denies sore throat, runny nose, congestion Cardiovascular: Denies chest pain Respiratory: Denies shortness of breath Gastrointestinal: Denies Nausea, vomiting, diarrhea, hematochezia. Genitourinary: Denies hematuria Skin:Denies a rash MSK: Denies joint pain Neurological: Denies blurred vision, headache, diplopia, numbness, tingling, weakness Psychiatric: Denies depression PAST MEDICAL HISTORY: As per history of present illness and as reviewed below otherwise noncontributory. SURGICAL HISTORY: As per history of present illness and as reviewed below otherwise noncontributory. SOCIAL HISTORY: As per history of present illness and as reviewed below otherwise noncontributory. FAMILY HISTORY: As per history of present illness and as reviewed below otherwise noncontributory. EXAMINATION OF ORGAN SYSTEMS/BODY AREAS: Constitutional: Blood pressure is 150/96, heart rate 92, respiratory rate 18 with an oxygen saturation of 98% on room air. Temperature 36.4 General: Young woman who is crying Psychiatric: Patient is crying but she is cooperative. Eyes: No scleral icterus or conjunctival erythema pupils are equal round and reactive to light. ENMT: Moist mucous membranes. No pharyngeal erythema there is no obvious gum swelling or erythema. No buccal swelling or erythema. There are some dental caries. There is tenderness to palpation along the anterior portion of the left ear. Bilateral tympanic membranes without any erythema or bulging. There is no posterior auricular tenderness to palpation. There is no trismus. No drooling. There is some mild swelling near left temporomandibular joint. Cardiovascular: Regular, rate, and rhythm. No gallops, murmurs, or rubs. Bilateral upper extremity pulses symmetric and intact. No peripheral edema. Respiratory: Lungs clear to auscultation bilaterally. No wheezes, rales, or rhonchi. Gastrointestinal: Soft, non-tender, non-distended. Normoactive bowel sounds Genitourinary: No suprapubic tenderness Musculoskeletal: Normal range of motion. Skin: No lesions or abrasions. Neurological: Alert, GCS 15 MEDICAL DECISION MAKING AND COURSE IN THE ED WITH INTERPRETATION/REVIEW OF DIAGNOSTIC STUDIES: This is a 30-year-old woman with a past medical history of broken teeth versus dental caries who comes to the emergency department with acute left-sided facial pain without any obvious abnormality. At this time this pain is likely due to her dental carry/broken teeth. Mastoiditis is low on my differential as the patient does not have any mastoidal pain. Given the mild swelling there could be an abscess therefore we will evaluate with CT. Will obtain labs including CBC and BMP. There are no red flag symptoms such as drooling, trismus the patient is speaking in full sentences without any difficulty. Will obtain a CT neck soft tissue for further evaluation. We will provide the patient with morphine for pain relief. Laboratory: CBC is unremarkable. BMP is unremarkable. hCG is negative. The radiological images were viewed by myself along with reading the report from the radiologist. CT soft tissue neck reveals no evidence of abscess or mass in the neck. Otherwise no abnormality. On reevaluation, the patient's pain had improved and the patient appeared Colmer. At this time I did discuss with her the results. I discussed with her that at this time this could be secondary to the broken teeth however there is no obvious sign of infection. I did not recommend antibiotics at this time. Encourage the patient to follow-up with dentistry. She is to take Tylenol and Motrin for pain relief. She was amenable to discharge at this time and had no further questions. She was given strict return precautions. DISPOSITION: The patient was discharged home in stable condition. The patient will follow up with dentistry within 1 to 2 days CONDITION: Fair PROCEDURES: None FINAL IMPRESSION(S)/DIAGNOSES: 1. Acute left-sided jaw pain Laurent Rene M.D. left mouth/tooth Pain Score (Numeric/FACES): 8 - Related Data Allergies Allergy/AdvReac Type Severity Reaction Status Date / Time No Known Allergies Allergy Verified 02/15/20 00:19 Home Meds: Home Meds . [No Known Home Meds] 10/31/20 [History] Past Medical History HEENT History: Reports: None Cardiovascular History: Reports: None Respiratory History: Reports: None Gastrointestinal History: Reports: GERD, Other (See Below) Other Gastrointestinal History: heartburn with Genitourinary History: Reports: None STUDENT SERVICES COUNSELOR History: Reports: , Other (See Below) Other STUDENT SERVICES COUNSELOR History: c section. B salpingectomy and uterine ablation Musculoskeletal History: Reports: None Neurological History: Reports: None Psychiatric History: Reports: None Endocrine/Metabolic History: Reports: Obesity/BMI 30+ Hematologic History: Reports: None Immunologic History: Reports: None Oncologic (Cancer) History: Reports: None Dermatologic History: Reports: None - Infectious Disease History Infectious Disease History: Reports: Chicken Pox, Shingles - Past Surgical History Head Surgeries/Procedures: Reports: None HEENT Surgical History: Reports: None Cardiovascular Surgical History: Reports: None GI Surgical History: Reports: Appendectomy Female Surgical History: Reports: Section, D&C, Other (See Below) Other Female Surgeries/Procedures: Saplingoectomy, Ablation Musculoskeletal Surgical History: Reports: None Dermatological Surgical History: Reports: None Social & Family History - Family History Family Medical History: No Pertinent Family History - Caffeine Use Caffeine Use: Reports: None ED ROS GENERAL - Review of Systems Review Of Systems: See Below ED EXAM, GENERAL - Physical Exam Exam: See Below Course - Vital Signs Last Recorded V/S: Last Vital Signs Temp 36.4 C 10/31/20 20:58 Pulse 76 11/01/20 00:26 Resp 17 11/01/20 00:26 BP 137/84 11/01/20 00:26 Pulse Ox 98 11/01/20 00:26 - Orders/Labs/Meds Labs: Laboratory Tests 10/31/20 10/31/20 10/31/20 Range/Units 21:55 21:55 21:55 WBC 7.65 (4.0-11.0) K/uL RBC 4.84 (4.30-5.90) M/uL Hgb 14.4 (12.0-16.0) g/dL Hct 43.0 (36.0-46.0) % MCV 88.8 (80.0-98.0) fL MCH 29.8 (27.0-32.0) pg MCHC 33.5 (31.0-37.0) g/dL RDW Std Deviation 44.5 (28.0-62.0) fl RDW Coeff of Kalie 14 (11.0-15.0) % Plt Count 265 (150-400) K/uL MPV 10.50 (7.40-12.00) fL Neut % (Auto) 69.7 (48.0-80.0) % Lymph % (Auto) 20.8 (16.0-40.0) % [place] % (Auto) 6.5 (0.0-15.0) % Eos % (Auto) 2.7 (0.0-7.0) % Baso % (Auto) 0.3 (0.0-1.5) % Neut # (Auto) 5.3 (1.4-5.7) K/uL Lymph # (Auto) 1.6 (0.6-2.4) K/uL [place] # (Auto) 0.5 (0.0-0.8) K/uL Eos # (Auto) 0.2 (0.0-0.7) K/uL Baso # (Auto) 0.0 (0.0-0.1) K/uL Nucleated RBC % 0.0 /100WBC Nucleated RBCs # 0 K/uL Sodium 142 (136-145) mmol/L Potassium 3.9 (3.5-5.1) mmol/L Chloride 106 (98-107) mmol/L Carbon Dioxide 25.9 (21.0-32.0) mmol/L BUN 11 (7.0-18.0) mg/dL Creatinine 1.0 (0.6-1.0) mg/dL Est Cr Clr Drug Dosing 84.49 mL/min Estimated GFR (MDRD) > 60.0 ml/min Glucose 111 H (74-106) mg/dL Calcium 9.1 (8.5-10.1) mg/dL HCG, Qual NEGATIVE (NEG) Meds: Medications Discontinued Medications Generic Name Dose Route Start Last Admin Trade Name Adolfo PRN Reason Stop Dose Admin Iopamidol 75 ml 10/31/20 23:02 10/31/20 23:03 Iopamidol 755 Mg/Ml 500 Ml Multipack Bottle IVPUSH 10/31/20 23:03 75 ml ONETIME STA Administration Morphine Sulfate 4 mg 10/31/20 21:27 10/31/20 22:05 Morphine 4 Mg/Ml Syringe IVPUSH 10/31/20 21:28 4 mg ONETIME ONE Administration Departure - Departure Time of Disposition: 00:19 Disposition: Home, Self-Care 01 Condition: Fair Clinical Impression: Jaw pain - Discharge Information *PRESCRIPTION DRUG MONITORING PROGRAM REVIEWED*: No *COPY OF PRESCRIPTION DRUG MONITORING REPORT IN PATIENT AARON: No Instructions: Temporomandibular Joint Syndrome, Acute Pain, Adult Referrals: PCP,None [Primary Care Provider] - Forms: ED Department Discharge Additional Instructions: You were evaluated today on an emergent basis. At this time your work-up was negative. There was no abnormalities on examination except for your dental caries. CT of your neck was negative. At this time I do recommend the use of Tylenol and Motrin for pain relief. You may use Aleve. Please remember do not take more than 4000 mg in a day of Tylenol. Please follow-up with dentistry tomorrow. If you have any new or worsening symptoms such as drooling, trouble swallowing, shortness of breath please return to the emergency department. Please use: Tylenol 500-1000mg every 6 hours (DO NOT TAKE MORE THAN 4000mg in 1 day) Ibuprofen 400mg every 6 hours (Take with food as it can cause ulcers, GI upset) Example schedule: 8:00 AM (Tylenol 500-1000mg) 11:00 AM (Ibuprofen 400mg) 2:00 PM (Tylenol 500-1000mg) 5:00 PM (Ibuprofen 400mg) Ice the area 20 minutes 4 times per day [facility] [address] [place] [address] [facility] [address] [place] [id number] The patient is informed of any results of their evaluation and diagnostic workup and all questions are answered. They are given discharge instructions and return precautions. The patient is stable for discharge. The patient states they understand and agree with the plan and that they will return if their symptoms get worse or if they have any new concerns. The following information is given to patients seen in the emergency department who are being discharged to home. This information is to outline your options for follow-up care. We provide all patients seen in our emergency department with a follow-up referral. The need for follow-up, as well as the timing and circumstances, are variable depending upon the specifics of your emergency department visit. If you don't have a primary care physician on staff, we will provide you with a referral. We always advise you to contact your personal physician following an emergency department visit to inform them of the circumstance of the visit and for follow-up with them and/or the need for any referrals to a consulting specialist. The emergency department will also refer you to a specialist when appropriate. This referral assures that you have the opportunity for follow-up care with a specialist. All of these measure are taken in an effort to provide you with optimal care, which includes your follow-up. Under all circumstances we always encourage you to contact your private physician who remains a resource for coordinating your care. When calling for follow-up care, please make the office aware that this follow-up is from your recent emergency room visit. If for any reason you are refused follow-up, please contact the [facility] Emergency Department at and asked to speak to the emergency department charge nurse. Sepsis Event Note (ED) - Evaluation Sepsis Screening Result: No Definite Risk - Focused Exam Vital Signs: Vital Signs Temp Pulse Resp BP Pulse Ox 11/01/20 00:26 76 17 137/84 98 10/31/20 23:13 74 18 127/83 96 10/31/20 22:27 82 17 132/76 97 10/31/20 20:58 36.4 C 92 18 150/96 H 98
[2020-11-01 00:27] VITALS: BP 137/84; PULSE 76
== END 2020-11-01 00:34 | disposition home or self-care (01) ==
LOC: MW.ED 20:39
DX: R68.84 Jaw pain (principal); E66.9 Obesity, unspecified; Z68.35 Body mass index [BMI] 35.0-35.9, adult
CPT/HCPCS: 36415; 70491; 80048; 84703; 85025; 96374; 99284; J2270; Q9967; 99283

== ENCOUNTER 2022-04-11 07:46 | Emergency (ER) | payer BC ==
[2022-04-11] MEDS ORDERED: Ibuprofen 400 MG Tab PO ONE (10:50)
== END 2022-04-11 15:56 | disposition home or self-care (01) ==
LOC: MW.ED 07:46
DX: M25.551 Pain in right hip (principal)
CPT/HCPCS: 72100; 72148; 73502; 73721; 99284; A9270

== ENCOUNTER 2022-10-03 07:04 | Emergency (ER) | payer BC ==
[2022-10-03] MEDS ORDERED: Sodium Chloride 0.9% 1,000 ML IV ONE (08:07)
[2022-10-03] MEDS ORDERED: Ketorolac 30 MG/ML SDV IVPUSH ONE (08:07)
[2022-10-03 08:17] VITALS: BP 99/42; PULSE 98
[2022-10-03 08:31] LABS: CARBON DIOXIDE,CO2 25.6 mmol/L (21.0-32.0); POTASSIUM,K 3.4 mmol/L (3.5-5.1)
[2022-10-03] MEDS ORDERED: cefTRIAXone 1 GM in Sodium Chloride 0.9% 50 ML IV ONE ×2 (08:58→09:15)
== END 2022-10-03 11:47 | disposition home or self-care (01) ==
LOC: MW.ED 07:04
DX: N12 Tubulo-interstitial nephritis, not specified as acute or chronic (principal); E66.9 Obesity, unspecified; Z68.24 Body mass index [BMI] 24.0-24.9, adult
CPT/HCPCS: 36415; 80048; 81001; 85025; 96361; 96365; 96375; 99284; J0696; J1885; J7030; J7050

== ENCOUNTER 2023-03-16 18:41 | Emergency (ER) | payer BC ==
[2023-03-16] MEDS ORDERED: Cyclobenzaprine 10 MG Tab PO STA (19:49)
[2023-03-16] MEDS ORDERED: Acetaminophen 500 MG Tab PO STA (19:49)
[2023-03-16] MEDS ORDERED: Ketorolac 10 MG Tab PO STA (19:49)
[2023-03-16 19:51] LABS: APPEARANCE,URINE SLT CLOUDY; BILIRUBIN,URINE NEGATIVE (NEGATIVE); COLOR,URINE YELLOW; GLUCOSE,URINE NEGATIVE (NEGATIVE); KETONES,URINE NEGATIVE (NEGATIVE); LEUKOCYTE ESTERASE,URINE NEGATIVE (NEGATIVE); NITRITE,URINE NEGATIVE (NEGATIVE); OCCULT BLOOD,URINE NEGATIVE (NEGATIVE); PROTEIN,URINE NEGATIVE (NEGATIVE); UROBILINOGEN,URINE 0.2 EU/dL (<2.0)
[2023-03-16 22:51] VITALS: BP 119/74; PULSE 69
== END 2023-03-16 22:50 | disposition home or self-care (01) ==
LOC: MW.ED 18:41
DX: M25.552 Pain in left hip (principal); E66.9 Obesity, unspecified; Z68.25 Body mass index [BMI] 25.0-25.9, adult
CPT/HCPCS: 73502; 81003; 81025; 93971; 99284; A9270; 99283

== ENCOUNTER 2024-06-26 10:43 | Emergency (ER) | payer BC ==
[2024-06-26 11:28] LABS: BASOPHILS ABSOLUTE AUTO 0.04 K/uL (0.00-0.20); BASOPHILS PERCENT AUTO 0.8 % (0.0-1.0); EOSINOPHILS ABSOLUTE AUTO 0.37 K/uL (0.00-0.45); EOSINOPHILS PERCENT AUTO 7.2 % (0.0-6.0); HEMATOCRIT 41.8 % (37.0-47.0); HEMOGLOBIN 14.3 g/dL (12.0-16.0); LYMPHOCYTES ABSOLUTE AUTO 1.35 K/uL (1.00-4.80); LYMPHOCYTES PERCENT AUTO 26.1 % (24.0-44.0); MEAN CORPUSCULAR HEMOGLOBIN 30.4 pg (28.0-32.0); MEAN CORPUSCULAR HGB CONC 34.2 g/dL (32.0-36.0); MEAN CORPUSCULAR VOLUME 88.7 fL (83.0-99.0); MEAN PLATELET VOLUME 10.3 fL (9.4-12.3); MONOCYTES ABSOLUTE AUTO 0.34 K/uL (0.00-0.80); MONOCYTES PERCENT AUTO 6.6 % (0.0-8.0); NEUTROPHILS ABSOLUTE AUTO 3.07 K/uL (1.80-7.70); NEUTROPHILS PERCENT AUTO 59.3 % (41.0-71.0); PLATELET COUNT,PLT 220 K/uL (150-400); RED BLOOD CELL COUNT 4.71 M/uL (4.10-5.30); WHITE BLOOD CELL COUNT,WBC 5.17 K/uL (3.9-11.3)
[2024-06-26 11:56] LABS: A/G RATIO 0.9 (0.9-1.6); ALBUMIN 3.5 g/dL (3.4-5.0); BILIRUBIN TOTAL 0.3 mg/dL (0.2-1.0); CALCIUM 8.7 mg/dL (8.5-10.1); CARBON DIOXIDE,CO2 26.9 mmol/L (21.0-32.0); CREATININE 0.8 mg/dL (0.6-1.0); EST CRCL DRUG DOSING (CG) 102.78 mL/min; POTASSIUM,K 4.3 mmol/L (3.5-5.1); PROTEIN TOTAL,TP 7.5 g/dL (6.4-8.2)
[2024-06-26] MEDS: Gadobenate Dimeglumine 529 MG/ML 20 ML SDV IVPUSH ONE (13:47)
[2024-06-26 14:59] VITALS: BP 119/53; PULSE 67
== END 2024-06-26 14:57 | disposition home or self-care (01) ==
LOC: MW.ED 10:43
DX: G43.001 Migraine without aura, not intractable, with status migrainosus (principal); R53.1 Weakness; K21.9 Gastro-esophageal reflux disease without esophagitis; E66.9 Obesity, unspecified; Z79.899 Other long term (current) drug therapy; Z75.8 Other problems related to medical facilities and other health care; Z68.29 Body mass index [BMI] 29.0-29.9, adult
CPT/HCPCS: 36415; 70450; 70553; 80053; 84703; 85025; 96374; 99285; A9577; 99284

== ENCOUNTER 2024-08-01 07:44 | Emergency (ER) | payer BC ==
[2024-08-01] MEDS: Acetaminophen 500 MG Tab PO ONE (08:18)
[2024-08-01] MEDS: Ketorolac 30 MG/ML SDV IM ONE (08:19)
[2024-08-01] MEDS: Dexamethasone 4 MG Tab PO ONE (08:19)
[2024-08-01 09:04] VITALS: BP 113/74; PULSE 84
== END 2024-08-01 09:00 | disposition home or self-care (01) ==
LOC: MW.ED 07:44
DX: S83.91XA Sprain of unspecified site of right knee, initial encounter (principal); M23.8X1 Other internal derangements of right knee; E66.9 Obesity, unspecified; Z86.16 Personal history of COVID-19; Z90.49 Acquired absence of other specified parts of digestive tract; Z79.899 Other long term (current) drug therapy; Z68.28 Body mass index [BMI] 28.0-28.9, adult; X50.9XXA Other and unspecified overexertion or strenuous movements or postures, initial encounter
CPT/HCPCS: 73562; 96372; 99283; A9270; J1885; J8540

== ENCOUNTER → 2024-09-03 | Day surgery (SDC) | payer BC ==
[~2024-09-03] MED LIST: Albuterol 0.083% 2.5 MG/3 ML Neb Soln NEB PRN; Bupivacaine 0.5%/EPINEPHrine 1:200,000 30 ML SDV ONE; Dexamethasone 4 MG/ML 5 ML MDV ONE; Ketorolac 30 MG/ML SDV ONE; Lidocaine 2% 5 ML SDV ONE; Metoclopramide 10 MG/2 ML SDV IVPUSH PRN; Midazolam 1 MG/ML 2 ML SDV ONE; Morphine 2 MG/ML SYRINGE IVPUSH PRN; Naloxone 0.4 MG/ML SDV IVPUSH PRN; Ondansetron 4 MG/2 ML SDV IVPUSH PRN; Ondansetron 4 MG/2 ML SDV ONE; Phenylephrine HCl In 0.9% NaCl 1 MG/10 ML Syringe IVPUSH PRN; Propofol 200 MG/20 ML SDV ONE; ceFAZolin 1 GM Vial ONE; ceFAZolin 2 GM in Sodium Chloride 0.9% 50 ML IV ONE; fentaNYL 100 MCG/2 ML SDV ONE; fentaNYL 50 MCG/ML SDV IVPUSH PRN
[2024-09-03] MEDS: Lactated Ringers 1,000 ML IV SCH (09:40)
[2024-09-03] MEDS: HYDROmorphone 1 MG/ML Syringe IVPUSH PRN (11:21)
[2024-09-03] MEDS: Ketorolac 30 MG/ML SDV IVPUSH ONE (11:28)
[2024-09-03 14:15] VITALS: BP 124/70; PULSE 84
== END | disposition home or self-care (01) ==
LOC: MW.SDS 09:14
PROVIDERS: ATTEND Orthopaedic Surgery
DX: S83.251A Bucket-handle tear of lateral meniscus, current injury, right knee, initial encounter (principal); F41.9 Anxiety disorder, unspecified; X58.XXXA Exposure to other specified factors, initial encounter
CPT/HCPCS: 29881; 81025; J0131; J0690; J1100; J1171; J1885; J2003; J2250; J2405; J2704; J3010; J7120; 01400; J3490

== ENCOUNTER 2025-05-26 18:15 | Emergency (ER) | payer BC ==
[2025-05-26 18:54] LABS: BASOPHILS ABSOLUTE AUTO 0.04 K/uL (0.00-0.20); BASOPHILS PERCENT AUTO 0.6 % (0.0-1.0); EOSINOPHILS ABSOLUTE AUTO 0.11 K/uL (0.00-0.45); EOSINOPHILS PERCENT AUTO 1.7 % (0.0-6.0); IMMATURE GRAN ABSOLUTE AUTO 0.01 K/uL (0.00-0.05); IMMATURE GRAN PERCENT AUTO 0.2 % (0.0-0.4); LYMPHOCYTES ABSOLUTE AUTO 1.69 K/uL (1.00-4.80); LYMPHOCYTES PERCENT AUTO 25.4 % (24.0-44.0); MEAN PLATELET VOLUME 11.0 fL (9.4-12.3); MONOCYTES ABSOLUTE AUTO 0.38 K/uL (0.00-0.80); MONOCYTES PERCENT AUTO 5.7 % (0.0-8.0); NEUTROPHILS ABSOLUTE AUTO 4.42 K/uL (1.80-7.70); NEUTROPHILS PERCENT AUTO 66.4 % (41.0-71.0); NRBC ABSOLUTE 0.00 K/uL (0.00-0.02); NRBC PERCENT 0.0 /100WBC (0.0-0.2); PLATELET COUNT,PLT 191 K/uL (150-400); RED BLOOD CELL COUNT 4.40 M/uL (4.10-5.30); WHITE BLOOD CELL COUNT,WBC 6.65 K/uL (3.9-11.3)
[2025-05-26] MEDS: Budesonide 0.5 MG/2 ML Neb Susp NEB ONE (19:03)
[2025-05-26 19:18] LABS: A/G RATIO 1.1 (0.9-1.6); ALANINE AMINOTRANSFERASE,ALT 15.0 IU/L (14-63); ASPARTATE AMNIOTRANSFERASE,AST 16.0 IU/L (15-37); BILIRUBIN TOTAL 0.5 mg/dL (0.2-1.0); BLOOD UREA NITROGEN,BUN 13.0 mg/dL (7.0-18.0); CARBON DIOXIDE,CO2 27.3 mmol/L (21.0-32.0); CHLORIDE,CL 105.0 mmol/L (98-107); CREATININE 0.8 mg/dL (0.6-1.0); EST CRCL DRUG DOSING (CG) 101.84 mL/min; GLUCOSE RANDOM 76.0 mg/dL (74-106); POTASSIUM,K 4.6 mmol/L (3.5-5.1); PROTEIN TOTAL,TP 7.9 g/dL (6.4-8.2); SODIUM,NA 140.0 mmol/L (136-145)
[2025-05-26 19:36] LABS: ESTIMATED GFR 100.0 mL/min (>60)
[2025-05-26] MEDS: Ondansetron 4 MG/2 ML SDV IVPUSH ONE (21:18)
[2025-05-26] MEDS: LORazepam 2 MG/ML SDV IVPUSH ONE (23:54)
[2025-05-27 09:41] VITALS: BP 111/72; PULSE 70
== END 2025-05-27 09:41 | disposition home or self-care (01) ==
LOC: MW.ED 18:15
DX: J98.2 Interstitial emphysema (principal); R07.81 Pleurodynia; R11.2 Nausea with vomiting, unspecified; E66.9 Obesity, unspecified; Z68.23 Body mass index [BMI] 23.0-23.9, adult; Z90.49 Acquired absence of other specified parts of digestive tract; Z79.82 Long term (current) use of aspirin; Z79.899 Other long term (current) drug therapy
CPT/HCPCS: 36415; 71046; 71260; 74220; 80053; 85025; 87428; 87651; 96361; 96374; 99285; A9270; J2060; J7030; J7620; 99283